=== PATIENT | female | born 1970 | race Caucasian/White ===

== ENCOUNTER 2020-04-27 09:59 | Outpatient (REF) | payer OTHER, SELFPAY | END 2020-04-27 10:00 | disposition home or self-care (01) | LOC: HO.LAB 09:59 | PROVIDERS: Visit Provider Internal Medicine | DX: Z20.828 Contact with and (suspected) exposure to other viral communicable diseases (principal) | CPT/HCPCS: C9803; U0003 ==

== ENCOUNTER 2021-12-06 10:23 | Outpatient (REF) | payer OTHER, SELFPAY ==
--- NOTE | ~2021-12-06 | XR_ITS ---
EXAMINATION: XR FOOT, RIGHT CLINICAL INFORMATION: Pain. COMPARISON: None TECHNIQUE: AP, lateral, and oblique views of the right foot. FINDINGS: Bony alignment and mineralization are normal. No fracture, dislocation or right ankle joint effusion is seen. Boehler's angle is normal. There are small posterior and plantar calcaneal spurs. No focal soft tissue swelling, gas or foreign body is seen. XR/XR foot RT min 3V IMPRESSION: 1. No fracture, dislocation or right ankle joint effusion is seen. 2. There are small posterior and plantar right calcaneal spurs. EXAMINATION: XR FOOT, LEFT CLINICAL INFORMATION: Pain. COMPARISON: None TECHNIQUE: AP, lateral, and oblique views of the left foot. FINDINGS: Bony alignment and mineralization are normal. No fracture, dislocation or left ankle joint effusion is seen. Boehler's angle is normal. There are moderate posterior and small plantar calcaneal spurs. There is very mild bunion formation of the first metatarsal head. No focal soft tissue swelling, gas or foreign body is seen. IMPRESSION: 1. No fracture, dislocation or left ankle joint effusion is seen. 2. There are moderate posterior and small plantar left calcaneal spurs. 3. There is very mild bunion formation.
--- NOTE | ~2021-12-06 | XR_ITS ---
EXAMINATION: XR FOOT, RIGHT CLINICAL INFORMATION: Pain. COMPARISON: None TECHNIQUE: AP, lateral, and oblique views of the right foot. FINDINGS: Bony alignment and mineralization are normal. No fracture, dislocation or right ankle joint effusion is seen. Boehler's angle is normal. There are small posterior and plantar calcaneal spurs. No focal soft tissue swelling, gas or foreign body is seen. XR/XR foot LT min 3V IMPRESSION: 1. No fracture, dislocation or right ankle joint effusion is seen. 2. There are small posterior and plantar right calcaneal spurs. EXAMINATION: XR FOOT, LEFT CLINICAL INFORMATION: Pain. COMPARISON: None TECHNIQUE: AP, lateral, and oblique views of the left foot. FINDINGS: Bony alignment and mineralization are normal. No fracture, dislocation or left ankle joint effusion is seen. Boehler's angle is normal. There are moderate posterior and small plantar calcaneal spurs. There is very mild bunion formation of the first metatarsal head. No focal soft tissue swelling, gas or foreign body is seen. IMPRESSION: 1. No fracture, dislocation or left ankle joint effusion is seen. 2. There are moderate posterior and small plantar left calcaneal spurs. 3. There is very mild bunion formation.
== END 2021-12-06 10:24 | disposition home or self-care (01) ==
LOC: HO.HMGCX 10:23
PROVIDERS: PCP Nurse Practitioner Family; Visit Provider Nurse Practitioner Family
DX: M79.672 Pain in left foot (principal); M79.671 Pain in right foot
CPT/HCPCS: 73630

== ENCOUNTER 2021-12-13 09:32 | Outpatient (REF) | payer OTHER, SELFPAY ==
[2021-12-13 11:38] LABS: MANUAL DIFF FLAG NO
[2021-12-13 11:59] LABS: Basophils Absolute Auto 0.1 X10*3/uL (0.0-0.2); Basophils Percent Auto 0.9 % (0-2); Eosinophils Absolute Auto 0.3 X10*3/uL (0.0-0.4); Eosinophils Percent Auto 6.5 % (0-4); Hematocrit 41.1 % (37.0-47.0); Hemoglobin 13.9 g/dl (12.0-16.0); Imm Gran Abs Auto 0.01 X10*3/uL (0.00-0.03); Imm Gran Pct Auto 0.2 % (0.0-0.4); Lymphocytes Percent Auto 37.2 % (20-40); Mean Corpuscular HGB Conc 33.8 g/dl (31.0-35.0); Mean Corpuscular Hemoglobin 32.7 pg (27.0-33.0); Mean Corpuscular Volume 96.7 fL (80.0-98.0); Mean Platelet Volume 10.8 fL (9.4-12.3); Monocytes Absolute Auto 0.4 X10*3/uL (0.1-1.2); Monocytes Percent Auto 8.3 % (2-11); Neutrophils Absolute Auto 2.5 x10*3/uL (2.0-8.3); Neutrophils Percent Auto 46.9 % (45-73); Platelet Count 273 X10*3/uL (160-400); Red Blood Count 4.25 X10*6/uL (4.20-5.50); Red Cell Distribution Width 12.2 % (11.0-16.0); White Blood Count 5.3 X10*3/uL (4.8-10.8)
[2021-12-13 12:05] LABS: INTERNATIONAL NORM RATIO 0.9 (0.9-1.1); Prothrombin Time 9.9 SEC (10.0-13.1)
[2021-12-13 12:08] LABS: Partial Thromboplastin Time 30.4 SEC (26.0-36.4)
[2021-12-13 12:10] LABS: Alanine Aminotransferase 17 U/L (0-31); Albumin Level 4.3 g/dL (3.5-5.0); Alkaline Phosphatase 57 U/L (39-117); Anion Gap 15 (12-20); Aspartate Amino Transferase 13 U/L (5-31); Bilirubin Total 0.8 mg/dL (0.0-1.0); Blood Urea Nitrogen 19 mg/dL (9-16); Calcium 9.7 mg/dL (8.4-10.2); Carbon Dioxide 27 mmol/L (22-29); Chloride 102 mmol/L (96-108); Cholesterol 184 mg/dL; Estimated Glomerular Filt Rate > 60; Glucose Fasting 115 mg/dL (60-99); HDL Cholesterol 74 mg/dL; LDL Cholesterol Calculated 88 mg/dl; Potassium 4.4 mmol/L (3.3-5.1); Sodium 140 mmol/L (135-145); Total Protein 7.2 g/dL (6.5-8.0); Triglycerides 111 mg/dL
[2021-12-13 12:14] LABS: Appearance Urine CLEAR; Color Urine YELLOW; Glucose Urine UA NEG (NEG); Leukocyte Esterase Urine NEG (NEG); Nitrite Urine NEG (NEG); Specific Gravity - Urine 1.025 (1.005-1.025); Urine Blood NEG (NEG); Urine Ketones NEG (NEG); Urine Protein NEG (NEG-TRACE)
[2021-12-13 12:19] LABS: TSH reflex Free T4 1.17 uIU/mL (0.32-4.0)
== END 2021-12-13 09:33 | disposition home or self-care (01) ==
LOC: HO.HMGCLDS 09:32
PROVIDERS: PCP Nurse Practitioner Family; Visit Provider Nurse Practitioner Family
DX: R04.0 Epistaxis (principal)
CPT/HCPCS: 36415; 80053; 80061; 81003; 84443; 85025; 85610; 85730

== ENCOUNTER 2022-11-02 10:25 | Outpatient (REF) | payer OTHER, SELFPAY ==
[2022-11-02 12:29] LABS: Alanine Aminotransferase 36 U/L (0-31); Albumin Level 4.3 g/dL (3.5-5.0); Alkaline Phosphatase 62 U/L (39-117); Anion Gap 14 (12-20); Aspartate Amino Transferase 25 U/L (5-31); Bilirubin Total 0.9 mg/dL (0.0-1.0); Blood Urea Nitrogen 18 mg/dL (9-16); Carbon Dioxide 25 mmol/L (22-29); Chloride 106 mmol/L (96-108); Cholesterol 213 mg/dL; Estimated Glomerular Filt Rate > 60; Glucose Fasting 116 mg/dL (60-99); HDL Cholesterol 71 mg/dL; LDL Cholesterol Calculated 104 mg/dl; Potassium 4.1 mmol/L (3.3-5.1); Sodium 141 mmol/L (135-145); TSH reflex Free T4 2.06 uIU/mL (0.32-4.0); Total Protein 7.5 g/dL (6.5-8.0); Triglycerides 191 mg/dL
== END 2022-11-02 10:26 | disposition home or self-care (01) ==
LOC: HO.HMGCLDS 10:25
PROVIDERS: PCP Nurse Practitioner Family; Visit Provider Nurse Practitioner Family
DX: Z00.00 Encounter for general adult medical examination without abnormal findings (principal); Z20.2 Contact with and (suspected) exposure to infections with a predominantly sexual mode of transmission; Z13.220 Encounter for screening for lipoid disorders; Z13.29 Encounter for screening for other suspected endocrine disorder
CPT/HCPCS: 36415; 80053; 80061; 81003; 84443; 85025

== ENCOUNTER 2022-11-11 09:57 | Outpatient (REF) | payer OTHER, SELFPAY ==
--- NOTE | ~2022-11-11 | US_ITS ---
EXAMINATION: US ABDOMEN COMPLETE CLINICAL INFORMATION: Abnormal levels of other serum enzymes. COMPARISON: CT abdomen and pelvis 06/03/2019. TECHNIQUE: Real-time imaging of the abdominal viscera. FINDINGS: PANCREAS: The pancreas is not well seen due to bowel gas. ABDOMINAL AORTA: The mid and distal segments are normal in caliber. The proximal abdominal aorta is obscured by bowel gas. INFERIOR VENA CAVA: Visualized portions are normal. LIVER: The liver is normal in size. The liver contour is normal. There is diffuse increased liver parenchymal echogenicity, consistent with hepatic steatosis. No focal hepatic lesion. There is no intrahepatic biliary duct dilatation seen. GALLBLADDER: Normal. The gallbladder is physiologically distended without evidence of stones, sludge, polyps, wall thickening or pericholecystic fluid. COMMON BILE DUCT: Normal in caliber measuring 0.27 cm in diameter. RIGHT KIDNEY: Normal. No hydronephrosis. No renal calculi or focal parenchymal lesions. The kidney measures 11.9 cm in maximum dimension. LEFT KIDNEY: 0.6 x 0.5 x 0.7 cm nonobstructing calculus is seen in the mid kidney. No hydronephrosis or focal parenchymal lesions. The kidney measures 11.4 cm in maximum dimension. SPLEEN: Normal. The spleen measures 8.5 cm in maximum dimension. FREE FLUID: None. US/US abdomen complete IMPRESSION: 1. Hepatic steatosis. 2. 0.7 cm nonobstructing calculus in the mid left kidney.
[2022-11-14 05:06] LABS: HBc Num1 0.06 S/CO (0.00-0.79); HBsAGNum1 0.23 S/CO (0.00-0.99); Hepatitis A Antibody IgM 0.27 Index (0-0.79); Hepatitis B Core Antibody Nonreactive (Nonreactive); Hepatitis B Surface Antigen Negative (Negative); ~Hepatitis A Antibody IgM Nonreactive (Nonreactive); ~Hepatitis C Antibody Nonreactive (Nonreactive)
[2022-11-14 05:50] LABS: ~Hepatitis B Surface Antibody NONREACTIVE (Nonreactive)
== END 2022-11-11 09:58 | disposition home or self-care (01) ==
LOC: HO.HMGCX 09:57
PROVIDERS: PCP Nurse Practitioner Family; Visit Provider Nurse Practitioner Family
DX: R74.8 Abnormal levels of other serum enzymes (principal)
CPT/HCPCS: 36415; 76700; 86704; 86706; 86709; 86803; 87340

== ENCOUNTER 2023-09-19 10:59 | Outpatient (AMB) | payer OTHER, SELFPAY ==
--- NOTE | 2023-09-19 11:05 | A.OFFPC_ITS ---
Vital Signs 09/19/23 11:08 Height 5 ft 4 in Weight 231 lb BMI 39.6 BP 112/78 Blood Pressure Location Rt brachial Position Sitting Pulse 60 Pulse Source Pulse Oximeter Pulse Oximetry (%) 97 Oxygen Delivery Method Room Air Intake Visit Reasons: PE Intake Note: Patient here for physical exam. pt would like to address left shoulder pain, states ROM are limited. Mammo: 2023 [facility] Allergies Iodinated Contrast Media [IV CONTRAST] Allergy (Intermediate, Unverified 09/19/23 11:10) HIVES azithromycin [From ZITHROMAX] Allergy (Unknown, Unverified 09/19/23 11:10) RASH latex [LATEX] Allergy (Unknown, Unverified 09/19/23 11:10) ITCHING levofloxacin [Levaquin] Allergy (Unknown, Verified 09/19/23 11:10) ? hives metronidazole Allergy (Unknown, Verified 09/19/23 11:10) ? hives penicillin G Allergy (Unknown, Verified 09/19/23 11:10) Anaphylaxis penicillin V Allergy (Unknown, Verified 09/19/23 11:10) Hives Penicillins [PENICILLINS] Allergy (Unknown, Unverified 09/19/23 11:10) RASH sulfamethoxazole [From BACTRIM] Allergy (Unknown, Unverified 09/19/23 11:10) RASH trimethoprim [From BACTRIM] Allergy (Unknown, Unverified 09/19/23 11:10) RASH IV Dye Allergy (Unknown, Uncoded 09/19/23 11:10) Hives Tobacco use date assessed: 09/19/23 Dental Screening Dental Screen Date: 09/19/23 Did you have a dental visit in the last 12 months?: Yes Did you have a dental problem in the last 6 months where you did not have access to dental care?: No Was dental information given to patient?: Patient has dentist HPI PE HPI Details Pt is here for a PE. Will order labs. Due for colon screen, will refer again to GI. Mammo is up to date according to pt. Pt does not have a shower room attendant, will refer. Pt c/o left shoulder pain. She reports that this is chronic. Will order XR and refer to ortho. [facility] Family History Maternal Aunt Substance use disorder Maternal Uncle Substance use disorder Paternal Uncle Substance use disorder Paternal Aunt Substance use disorder Social History Housing: House Patient Tobacco Use Status: Former Tobacco user Cigarettes Per Day: 2 e-Cigarette/Vaping Use: Currently Using Second Hand Smoke Exposure: No Current occupational status: disabled Cognitive needs: No Hearing needs: No Vision needs: No Questionnaire Thrive Questionnaire Date Thrive assessed: 09/14/22 AUDIT C Alcohol Use Questionnaire (AUDIT-C) 1. How often do you have a drink containing alcohol?: 2-3 times a week 2. How many drinks containing alcohol do you have on a typical day when you are drinking?: 3 or 4 3. How often do you have six or more drinks on one occasion?: Never Total Score: 4 Score Reviewed/Action Taken: No KINGS-7 AMB Questionnaire KINGS-7 Date KINGS - 7 assessed: 09/14/22 Source: Developed by Drs. Oswaldo Keith, Yeni Angeles, Issa Riley and colleagues, with an educational yris from [employer]. Review of Systems Const Denies chills and Denies fever(s) Eyes Denies blurry vision ENT Denies vertigo, Denies dizziness and Denies sore throat Card Denies chest pain at rest, Denies chest pain with activity, Denies diaphoresis, Denies dyspnea and Denies dyspnea on exertion Resp Denies cough, Denies dyspnea, Denies dyspnea on exertion and Denies wheezing GI Denies abdominal pain, Denies melena, Denies hematochezia, Denies constipation, Denies diarrhea and Denies loose stools Denies hematuria Musc Denies numbness and Denies tingling Skin/Breast Denies lesions Neuro Denies vertigo, Denies dizziness, Denies numbness and Denies tingling Psych Denies anxiety, Denies depression, Denies homicidal ideation, Denies suicidal ideation and Denies other (substance abuse) Aller/Immun Denies wheezing Physical exam (Primary Care) Vital Signs: Last Vital Signs Pulse 60 09/19/23 11:08 BP 112/78 09/19/23 11:08 Pulse Ox 97 09/19/23 11:08 Oxygen Delivery Method Room Air 09/19/23 11:08 BMI result Body Mass Index 39.6 Tobacco/Smoking Status: Tobacco use Status Tobacco use date assessed 09/19/23 09/19/23 11:13 Patient Tobacco Use Status Former Tobacco user 09/19/23 11:13 e-Cigarette/Vaping Use Currently Using 09/19/23 11:13 Thrive Assessment: Date of Thrive Assessment Date Thrive assessed 09/14/22 09/19/23 11:13 Const General: cooperative Nutritional Appearance: obese Orientation/consciousness: patient oriented x3 HENMT Head: Yes normal to inspection, Yes normocephalic and Yes atraumatic Ears: TM's normal bilaterally Eyes General: appearance normal, both eyes and all related structures Alignment and Position: alignment normal and position normal Neck Neck: Yes normal visual inspection and Yes no lymphadenopathy Thyroid: Thyroid normal Resp Effort & Inspection: normal respiratory effort Auscultation: clear to auscultation bilaterally Cardio Rate: regular rate Rhythm: regular rhythm Heart sounds: S1 normal heart sound present, S2 normal heart sound present and no murmurs GI Palpation (GI): Soft to palpation and nontender Auscultation: normal bowel sounds Skin Rashes: no rashes Neuro General: patient oriented x3, moves all extremities, no focal motor deficits and deep tendon reflexes 2+ bilaterally Romberg Test: Negative Extrem Other: neg wolff, neg neers, neg jobes. + pain to deltoid and radiating inferior with lateral raises. Psych Appearance: grossly normal Mental Status: mental status grossly normal Speech and movement: Normal speech and movement present Affect: normal affect Attitude: cooperative Thought process: Normal thought process present Thought content: Normal thought content present Insight: Good insight present (Psych) Judgement: Good judgement present (Psych) Assessment and Plan Assessment & Plan (1) Physical exam: Code(s): Z00.00 - Encounter for general adult medical examination without abnormal findings Plan: Labs ordered (2) Screening for colon cancer: Code(s): Z12.11 - Encounter for screening for malignant neoplasm of colon Plan: Referred to GI (3) Screening for cervical cancer: Code(s): Z12.4 - Encounter for screening for malignant neoplasm of cervix Plan: Referred to shower room attendant (4) Left shoulder pain: Code(s): M25.512 - Pain in left shoulder Plan: XR ordered, referred to ortho Plan The patient agreed to the use of a director medical economics for this encounter. Scribed for KYLEE Pandya-BC by Jenna Silvestre, director medical economics, on 09/19/2023 at 11:35 EST. Orders: Orders Complete Blood Count Auto Diff Today Z00.00 - Encounter for general adult medical examination without abnormal findings Comprehensive [place]. Panel Fast Today Z00.00 - Encounter for general adult medical examination without abnormal findings TSH reflex Free T4 Today Z00.00 - Encounter for general adult medical examination without abnormal findings Lipid Panel Today Z00.00 - Encounter for general adult medical examination without abnormal findings XR shoulder LT min 2V Today M25.512 - Pain in left shoulder UA CC w/rflx Micro + Cult Today Z00.00 - Encounter for general adult medical examination without abnormal findings Referrals Orthopedics Referral M25.512 - Pain in left shoulder Gastroenterology Referral Z12.11 - Encounter for screening for malignant neoplasm of colon UTILIZATION MANAGEMENT RN Referral Z12.4 - Encounter for screening for malignant neoplasm of cervix Coding Level of Care Code Est Pt Prev Care 40-64y(38724) Diagnoses Physical exam Z00.00 Screening for colon cancer Z12.11 Screening for cervical cancer Z12.4 Left shoulder pain M25.512
[2023-09-19 11:08] VITALS: BP 112/78; PULSE 60; O2SAT 97; BMI 39.6
== END 2023-09-19 11:46 | disposition home or self-care (01) ==
PROVIDERS: Visit Provider Nurse Practitioner Family
DX: Z00.00 Encounter for general adult medical examination without abnormal findings (principal); Z12.11 Encounter for screening for malignant neoplasm of colon; Z12.4 Encounter for screening for malignant neoplasm of cervix; M25.512 Pain in left shoulder
CPT/HCPCS: 99396

== ENCOUNTER 2023-09-27 12:24 | Outpatient (AMB) | payer OTHER, SELFPAY ==
[2023-09-27 12:22] VITALS: BP 124/80; PULSE 59; O2SAT 97; BMI 40.5
--- NOTE | 2023-09-27 12:22 | AM.OFFWIN_ITS ---
Intake Vital Signs 3 09/27/23 12:22 Height 5 ft 4 in Weight 236 lb BMI 40.5 BP 124/80 Blood Pressure Location Rt brachial Position Sitting Pulse 59 Pulse Source Pulse Oximeter Pulse Oximetry (%) 97 Oxygen Delivery Method Room Air Intake Visit Reasons: Knee Pain Patient Tobacco Use Status: Former Tobacco user Allergies Iodinated Contrast Media [IV CONTRAST] Allergy (Intermediate, Unverified 09/27/23 12:13) HIVES azithromycin [From ZITHROMAX] Allergy (Unknown, Unverified 09/27/23 12:13) RASH latex [LATEX] Allergy (Unknown, Unverified 09/27/23 12:13) ITCHING levofloxacin [Levaquin] Allergy (Unknown, Verified 09/27/23 12:13) ? hives metronidazole Allergy (Unknown, Verified 09/27/23 12:13) ? hives penicillin G Allergy (Unknown, Verified 09/27/23 12:13) Anaphylaxis penicillin V Allergy (Unknown, Verified 09/27/23 12:13) Hives Penicillins [PENICILLINS] Allergy (Unknown, Unverified 09/27/23 12:13) RASH sulfamethoxazole [From BACTRIM] Allergy (Unknown, Unverified 09/27/23 12:13) RASH trimethoprim [From BACTRIM] Allergy (Unknown, Unverified 09/27/23 12:13) RASH IV Dye Allergy (Unknown, Uncoded 09/27/23 12:13) Hives Medication List - Last Reconciled 09/27/23 by Hortensia Villatoro MD atorvastatin 10 mg PO DAILY 90 days citalopram 20 mg PO DAILY clonazepam 0.5 mg PO DAILY PRN 30 days aponnjqfvqcg-Aa-ycly-minerals tabs PO pregabalin 100 mg PO BID 30 days trazodone 50 mg PO BEDTIME PRN 90 days Do you need a note to return to daycare/school/sports/work: No HPI Knee Pain 2 HPI0 Details Patient is a 53 year old female, who has encountered injury to her left knee this past weekend While playing with her partner outdoors Patient has swelling of her left knee now and having difficulty walking due to pain She is able to ambulate with the help of cane On examination patient is tender laterally below patella There is no pain in the back of the knee, there is no calf tenderness Range of motion is slightly limited because pain. Left knee is slightly swollen compared to right She is taking Tylenol or aleave with some relief Plan: I have ordered x-ray of her knee, we have also applied knee splint She is to stop taking a leave, I prescribing diclofenac 75 mg b.i.d. to be taken with food Further management after the x-ray report and re-evaluation in a week. [facility] Family History Maternal Aunt Substance use disorder Maternal Uncle Substance use disorder Paternal Uncle Substance use disorder Paternal Aunt Substance use disorder Social History Housing: House Patient Tobacco Use Status: Former Tobacco user Cigarettes Per Day: 2 e-Cigarette/Vaping Use: Currently Using Second Hand Smoke Exposure: No Current occupational status: disabled Cognitive needs: No Hearing needs: No Vision needs: No Review of Systems Const All systems reviewed & are unremarkable except as noted in HPI and below Physical Exam Vital Signs: Last Vital Signs Pulse 59 09/27/23 12:22 BP 124/80 09/27/23 12:22 Pulse Ox 97 09/27/23 12:22 Oxygen Delivery Method Room Air 09/27/23 12:22 BMI result Body Mass Index 40.5 Const General: no acute distress Orientation/consciousness: patient oriented x3 Eyes General: appearance normal, both eyes and all related structures Resp Effort & Inspection: normal respiratory effort and able to speak in complete sentences Neuro General: patient oriented x3 Extrem Elbow/forearm/wrist images: 2 1. Tender to pressure, left knee slightly swollen compared to right knee, range of motion slightly limited because of the pain, no pain posterior to knee no calf tenderness Psych Mental Status: mental status grossly normal Assessment & Plan Assessment & Plan (1) Knee pain, left: Code(s): M25.562 - Pain in left knee Qualifiers: Chronicity: acute Qualified Code(s): M25.562 - Pain in left knee (2) Swelling of knee joint, left: Code(s): M25.462 - Effusion, left knee (3) Left knee injury: Code(s): S89.92XA - Unspecified injury of left lower leg, initial encounter Qualifiers: Encounter type: initial encounter Qualified Code(s): S89.92XA - Unspecified injury of left lower leg, initial encounter Plan Patient is a 53 year old female, who has encountered injury to her left knee this past weekend While playing with her partner outdoors Patient has swelling of her left knee now and having difficulty walking due to pain She is able to ambulate with the help of cane On examination patient is tender laterally below patella There is no pain in the back of the knee, there is no calf tenderness Range of motion is slightly limited because pain. Left knee is slightly swollen compared to right She is taking Tylenol or aleave with some relief Plan: I have ordered x-ray of her knee, we have also applied knee splint She is to stop taking a leave, I prescribing diclofenac 75 mg b.i.d. to be taken with food Further management after the x-ray report and re-evaluation in a week. Orders: Orders 2 XR knee LT 2V Today M25.462 - Effusion, left knee, M25.562 - Pain in left knee, S89.92XA - Unspecified injury of left lower leg, initial encounter Medications: New 2 diclofenac sodium Take medication with food 75 mg PO BID 10 days 20 tabs 0RF pain Coding Level of Care Code Est Pt Level 3 (99927) Diagnoses Acute pain of left knee M25.562 Chronicity: acute Swelling of knee joint, left M25.462 Injury of left knee, initial encounter S89.92XA Encounter type: initial encounter
== END 2023-09-27 12:44 | disposition home or self-care (01) ==
PROVIDERS: PCP Nurse Practitioner Family; Visit Provider Internal Medicine
DX: M25.562 Pain in left knee (principal); M25.462 Effusion, left knee; S89.92XA Unspecified injury of left lower leg, initial encounter
CPT/HCPCS: 99213

== ENCOUNTER 2023-09-27 13:00 | Outpatient (REF) | payer OTHER, SELFPAY ==
--- NOTE | ~2023-09-27 | XR_ITS ---
EXAMINATION: XR KNEE, LEFT CLINICAL INFORMATION: Pain in left knee status post injury COMPARISON: None available. TECHNIQUE: Four views of the left knee. FINDINGS: No fracture or joint effusion. Alignment is anatomic. Joint spaces are maintained. No abnormal soft tissue calcification. XR/XR knee LT 4V IMPRESSION: Normal left knee.
== END 2023-09-27 13:01 | disposition home or self-care (01) ==
LOC: HO.HMGCX 13:00
PROVIDERS: PCP Nurse Practitioner Family; Visit Provider Internal Medicine
DX: M25.562 Pain in left knee (principal)
CPT/HCPCS: 73564

== ENCOUNTER 2023-10-03 13:11 | Outpatient (AMB) | payer OTHER, SELFPAY ==
--- NOTE | 2023-10-03 13:14 | MHC.PC.OV ---
Vital Signs 10/03/23 13:16 Height 5 ft 4 in Weight 236 lb BMI 40.5 BP 118/70 Blood Pressure Location Rt brachial Position Sitting Pulse 111 H Pulse Source Pulse Oximeter Pulse Oximetry (%) 98 Oxygen Delivery Method Room Air Intake Visit Reasons: F/U knee pain [place] 09/27/23 Intake Note: Patient here to f/u from [place] visit for left knee pain. Allergies Iodinated Contrast Media [IV CONTRAST] Allergy (Intermediate, Unverified 10/03/23 13:17) HIVES azithromycin [From ZITHROMAX] Allergy (Unknown, Unverified 10/03/23 13:17) RASH latex [LATEX] Allergy (Unknown, Unverified 10/03/23 13:17) ITCHING levofloxacin [Levaquin] Allergy (Unknown, Verified 10/03/23 13:17) ? hives metronidazole Allergy (Unknown, Verified 10/03/23 13:17) ? hives penicillin G Allergy (Unknown, Verified 10/03/23 13:17) Anaphylaxis penicillin V Allergy (Unknown, Verified 10/03/23 13:17) Hives Penicillins [PENICILLINS] Allergy (Unknown, Unverified 10/03/23 13:17) RASH sulfamethoxazole [From BACTRIM] Allergy (Unknown, Unverified 10/03/23 13:17) RASH trimethoprim [From BACTRIM] Allergy (Unknown, Unverified 10/03/23 13:17) RASH IV Dye Allergy (Unknown, Uncoded 10/03/23 13:17) Hives Medication List - Last Reconciled 10/03/23 by KYLEE Russo-BC atorvastatin 10 mg PO DAILY 90 days citalopram 20 mg PO DAILY clonazepam 0.5 mg PO DAILY PRN 30 days mefrcdbkbozn-Hi-losm-minerals tabs PO pregabalin 100 mg PO BID 30 days trazodone 50 mg PO BEDTIME PRN 90 days Tobacco use date assessed: 09/19/23 Dental Screening Dental Screen Date: 09/19/23 HPI F/U knee pain [place] 09/27/23 HPI Details Pt was seen in the walk-in on 09/26 c/o left knee pain. Pt was at a [employer] when she injured her left knee by twisting it (pt has video). XR was negative. Pt was given a knee brace and diclofenac (she is no longer taking this, increased IBS). Pt reports ongoing pain. She reports instability especially when she is not wearing her brace. She reports that tylenol and advil help the pain minimally. Will order MRI and refer to PT. Will also send meloxicam 7.5mg. Denies fever, chills, and dizziness. [facility] Family History Maternal Aunt Substance use disorder Maternal Uncle Substance use disorder Paternal Uncle Substance use disorder Paternal Aunt Substance use disorder Social History Housing: House Patient Tobacco Use Status: Former Tobacco user Cigarettes Per Day: 2 e-Cigarette/Vaping Use: Currently Using Second Hand Smoke Exposure: No Current occupational status: disabled Cognitive needs: No Hearing needs: No Vision needs: No Questionnaire PHQ-9 Over the last 2 weeks, how often have you been bothered by any of the following problems? 09456 - PHQ-9 Billing: Patient declined-do not bill Source: Developed by Drs. Oswaldo Keith, Yeni Angeles, Issa Riley and colleagues, with an educational yris from [employer]. Thrive Questionnaire Date Thrive assessed: 10/03/23 What is your living situation today?: I choose not to answer this question Within the past 12 months, did the food you bought not last and you didn't have the money to get more?: I choose not to answer this question Within the past 12 months, did you worry whether your food would run out before you got money to buy more?: I choose not to answer this question Do you have trouble paying for medicines?: I choose not to answer this question Do you have trouble getting transportation to medical appointments?: I choose not to answer this question Do you have trouble paying your heating and electricity bill?: I choose not to answer this question Do you have trouble taking care of your child, family member or friend?: I choose not to answer this question Do you have trouble with day-to-day activities such as bathing, preparing meals, shopping, managing finances, etc.?: I choose not to answer this question Are you currently unemployed and looking for a job?: I choose not to answer this question Are you interested in more education?: I choose not to answer this question Currently or been in a relationship where the following occur: I choose not to answer this question THRIVE Score: 0 KINGS-7 AMB Questionnaire KINGS-7 Date KINGS - 7 assessed: 10/03/23 Source: Developed by Drs. Oswaldo Keith, Yeni Angeles, Issa Riley and colleagues, with an educational yris from [employer]. KINGS-7 Assessment Billing KINGS-7 Assessment Tool: pt declined-do not bill Review of Systems Const Reports as per HPI Physical exam (Primary Care) Vital Signs: Last Vital Signs Pulse 111 H 10/03/23 13:16 BP 118/70 10/03/23 13:16 Pulse Ox 98 10/03/23 13:16 Oxygen Delivery Method Room Air 10/03/23 13:16 BMI result Body Mass Index 40.5 Tobacco/Smoking Status: Tobacco use Status Tobacco use date assessed 09/19/23 10/03/23 13:16 Patient Tobacco Use Status Former Tobacco user 10/03/23 13:16 e-Cigarette/Vaping Use Currently Using 10/03/23 13:16 Thrive Assessment: Date of Thrive Assessment Date Thrive assessed 10/03/23 10/03/23 13:21 Currently or been in a relationship where the following occur: I choose not to answer this question Const General: cooperative Nutritional Appearance: obese Orientation/consciousness: patient oriented x3 Resp Effort & Inspection: normal respiratory effort Auscultation: clear to auscultation bilaterally Cardio Rate: regular rate Rhythm: regular rhythm Heart sounds: S1 normal heart sound present and S2 normal heart sound present Neuro General: patient oriented x3 Extrem Other: left knee: + mcmurrays, slight swelling to medial aspect, tenderness with extension and flexion, wearing brace and using cane Psych Appearance: grossly normal Mental Status: mental status grossly normal Speech and movement: Normal speech and movement present Affect: normal affect Attitude: cooperative Thought process: Normal thought process present Thought content: Normal thought content present Insight: Good insight present (Psych) Judgement: Good judgement present (Psych) Assessment and Plan Assessment & Plan (1) Left knee injury: Code(s): S89.92XA - Unspecified injury of left lower leg, initial encounter Qualifiers: Encounter type: initial encounter Qualified Code(s): S89.92XA - Unspecified injury of left lower leg, initial encounter Plan: MRI ordered, referred to PT, meloxicam sent. Video of injury seen, MRI definitely needed Plan The patient agreed to the use of a medical billing coder for this encounter. Scribed for BRIDGET Pandya by Jenna Silvestre medical billing coder, on 10/03/2023 at 13:35 EST. Orders: Orders MR knee LT wo con Today S89.92XA - Unspecified injury of left lower leg, initial encounter PT Evaluation and Treatment Today S89.92XA - Unspecified injury of left lower leg, initial encounter Medications: New meloxicam 7.5 mg PO DAILY 30 days PRN 30 tabs 0RF pain Coding Level of Care Code Est Pt Level 3 (70253) Diagnoses Injury of left knee, initial encounter S89.92XA Encounter type: initial encounter
[2023-10-03 13:16] VITALS: BP 118/70; PULSE 111; O2SAT 98; BMI 40.5
== END 2023-10-03 14:12 | disposition home or self-care (01) ==
PROVIDERS: PCP Nurse Practitioner Family; Visit Provider Nurse Practitioner Family
DX: S89.92XA Unspecified injury of left lower leg, initial encounter (principal)
CPT/HCPCS: 99213

== ENCOUNTER 2023-10-03 13:48 | Outpatient (REF) | payer OTHER, SELFPAY ==
--- NOTE | ~2023-10-03 | XR_ITS ---
EXAMINATION: XR SHOULDER, LEFT CLINICAL INFORMATION: Pain in left shoulder COMPARISON: None available. TECHNIQUE: AP external rotation, Grashey, scapular Y, and axillary views of the left shoulder. FINDINGS: The bones are intact. No fracture. Glenohumeral and acromioclavicular alignment is anatomic with moderate narrowing of the glenohumeral joint space mild degenerative change acromioclavicular joint. Small calcifications are seen adjacent to the humeral head. XR/XR shoulder LT min 2V IMPRESSION: 1. Moderate osteoarthritis of the glenohumeral joint. 2. Calcific tendinitis. 3. Mild degenerative change of the acromioclavicular joint.
== END 2023-10-03 13:49 | disposition home or self-care (01) ==
LOC: HO.HMGCX 13:48
PROVIDERS: PCP Nurse Practitioner Family; Visit Provider Nurse Practitioner Family
DX: M25.512 Pain in left shoulder (principal)
CPT/HCPCS: 73030

== ENCOUNTER 2023-10-16 08:57 | Outpatient (AMB) | payer OTHER, SELFPAY ==
--- NOTE | 2023-10-16 08:59 | A.OFFVIS_ITS ---
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 Intake Note: Mandie is a 53 year old right hand dominant female who presents today with complaints of left shoulder pain. Denies recent injury. Patient reports she has been having on going pain and weakness for the past 3 years but for the past year it has been at its worse. She expresses she has difficulty lifting her arm above her head some days, some days she is unable to lift at all. ROM lifted. She denies previous treatment on her left shoulder. She is unable to take ibuprofen but has tried Tylenol with mild relief. Allergies Iodinated Contrast Media [IV CONTRAST] Allergy (Intermediate, Verified 10/16/23 09:08) HIVES azithromycin [From ZITHROMAX] Allergy (Unknown, Verified 10/16/23 09:08) RASH latex [LATEX] Allergy (Unknown, Verified 10/16/23 09:08) ITCHING levofloxacin [Levaquin] Allergy (Unknown, Verified 10/16/23 09:08) ? hives metronidazole Allergy (Unknown, Verified 10/16/23 09:08) ? 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 : Details: Mandie is a 53 year old right hand dominant female who presents today with complaints of left shoulder pain. Denies recent injury. Patient reports she has been having on going pain and weakness for the past 3 years but for the past year it has been at its worse. She expresses she has difficulty lifting her arm above her head some days, some days she is unable to lift at all. ROM lifted. She denies previous treatment on her left shoulder. She is unable to take ibuprofen but has tried Tylenol with mild relief. She describes dislocations in the past , several, but the most recent one was several years ago. 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 [facility] Family History Maternal Aunt Substance use disorder Maternal Uncle Substance use disorder Paternal Uncle Substance use disorder Paternal Aunt Substance use disorder Social History Housing: House Patient Tobacco Use Status: Former Tobacco user Cigarettes Per Day: 2 e-Cigarette/Vaping Use: Currently Using Second Hand Smoke Exposure: No Current occupational status: disabled Cognitive needs: No Hearing needs: No Vision needs: No Physical Exam Vital Signs: BMI result Body Mass Index 40.5 Extrem Other: left hsoulder with 25 deg ER vs 60 on the right 4+/5 EC and + H/N on left Office Procedures Joint Injection/Drain Joint Injection/Drain Details: Injected 1 mL of Decadron and 3 mL 1% lidocaine and 3 mL of 0.25% Marcaine. Site was prepped using aseptic technique. Patient tolerated the procedure well. Primary Site: left shoulder Approach Used: posterolateral Coding 92535 - Large joint Procedure code (CPT) selection complete Assessment & Plan Assessment & Plan (1) Osteoarthritis of glenohumeral joint: Code(s): M19.019 - Primary osteoarthritis, unspecified shoulder Category: Medical Plan: I injected her left shoulder today and have ordered Physical Therapy. She should follow up s/p physical therapy. I reviewed her radiographs and she has post traumatic ( h/o multiple dislocations) GH OA. Plan Coding Level of Care Code New Pt Level 4 (87363) Diagnoses Osteoarthritis of glenohumeral joint M19.019 CPT Codes Coding - 83536 Large joint: 25401 - Large joint ([id number])
[2023-10-16 09:01] VITALS: BMI 40.5
== END 2023-10-16 10:42 | disposition home or self-care (01) ==
PROVIDERS: PCP Nurse Practitioner Family; Visit Provider Orthopaedic Surgery
DX: M19.012 Primary osteoarthritis, left shoulder (principal)
CPT/HCPCS: 20610; 99204

== ENCOUNTER → 2023-10-16 08:57 | Outpatient (BNVA) | payer OTHER, SELFPAY | PROVIDERS: PCP Nurse Practitioner Family; Visit Provider Orthopaedic Surgery | DX: M19.019 Primary osteoarthritis, unspecified shoulder (principal) | CPT/HCPCS: 20610; 99202; J0665; J1100 ==

== ENCOUNTER 2023-11-10 07:48 | Outpatient (REF) | payer OTHER, SELFPAY ==
[2023-11-10 08:04] LABS: MANUAL DIFF FLAG NO
[2023-11-10 09:05] LABS: Basophils Absolute Auto 0.1 X10*3/uL (0.0-0.2); Basophils Percent Auto 0.8 % (0-2); Eosinophils Absolute Auto 0.2 X10*3/uL (0.0-0.4); Eosinophils Percent Auto 3.4 % (0-4); Hemoglobin 13.3 g/dl (12.0-16.0); Imm Gran Abs Auto 0.02 X10*3/uL (0.00-0.03); Imm Gran Pct Auto 0.3 % (0.0-0.4); Lymphocytes Percent Auto 30.9 % (20-40); Mean Corpuscular HGB Conc 34.1 g/dl (31.0-35.0); Mean Corpuscular Hemoglobin 32.3 pg (27.0-33.0); Mean Corpuscular Volume 94.7 fL (80.0-98.0); Mean Platelet Volume 11.3 fL (9.4-12.3); Monocytes Absolute Auto 0.5 X10*3/uL (0.1-1.2); Neutrophils Absolute Auto 3.6 x10*3/uL (2.0-8.3); Neutrophils Percent Auto 56.6 % (45-73); Platelet Count 288 X10*3/uL (160-400); Red Blood Count 4.12 X10*6/uL (4.20-5.50); Red Cell Distribution Width 12.5 % (11.0-16.0); White Blood Count 6.4 X10*3/uL (4.8-10.8)
[2023-11-10 09:22] LABS: Appearance Urine Clear; Color Urine Yellow; Glucose Urine UA Negative (Negative); Leukocyte Esterase Urine Negative (Negative); Nitrite Urine Negative (Negative); PH 5.5 (5.0-9.0); Specific Gravity - Urine 1.025 (1.005-1.025); Urine Blood Negative (Negative); Urine Ketones Negative (Negative); Urine Protein Negative (Neg-Trace)
[2023-11-10 09:40] LABS: Alanine Aminotransferase 15 U/L (0-31); Albumin Level 4.3 g/dL (3.5-5.0); Alkaline Phosphatase 69 U/L (39-117); Anion Gap 14 (12-20); Aspartate Amino Transferase 15 U/L (5-31); Blood Urea Nitrogen 16 mg/dL (9-16); Calcium 9.3 mg/dL (8.4-10.2); Carbon Dioxide 23 mmol/L (22-29); Chloride 106 mmol/L (96-108); Cholesterol 188 mg/dL (<200); Estimated Glomerular Filt Rate > 60; Glucose Fasting 128 mg/dL (60-99); HDL Cholesterol 63 mg/dL (>40); LDL Cholesterol Calculated 98 mg/dL (<100); Potassium 3.7 mmol/L (3.3-5.1); Sodium 139 mmol/L (135-145); Total Protein 7.2 g/dL (6.5-8.0); Triglycerides 135 mg/dL (<150)
[2023-11-10 09:46] LABS: TSH reflex Free T4 2.59 uIU/mL (0.32-4.0)
== END 2023-11-10 07:49 | disposition home or self-care (01) ==
LOC: HO.LAB 07:48
PROVIDERS: PCP Nurse Practitioner Family; Visit Provider Nurse Practitioner Family
DX: Z00.00 Encounter for general adult medical examination without abnormal findings (principal); Z13.6 Encounter for screening for cardiovascular disorders
CPT/HCPCS: 36415; 80053; 80061; 81003; 84443; 85025

== ENCOUNTER 2023-12-19 11:00 | Outpatient (RCR) | payer OTHER, SELFPAY | END 2024-05-24 09:28 | disposition home or self-care (01) | LOC: HO.PTWFD 11:00 | PROVIDERS: PCP Nurse Practitioner Family; Visit Provider Nurse Practitioner Family | DX: S89.92XD Unspecified injury of left lower leg, subsequent encounter (principal) | CPT/HCPCS: 97110; 97140; 97161; 97530; 97535 ==

== ENCOUNTER 2023-12-20 07:33 | Outpatient (REF) | payer OTHER, SELFPAY ==
--- NOTE | ~2023-12-20 | MR_ITS ---
EXAMINATION: MR KNEE WITHOUT CONTRAST, LEFT CLINICAL INFORMATION: Unspecified injury of left lower leg, initial encounter. COMPARISON: None available. TECHNIQUE: MRI of the left knee without contrast was performed using routine sequences on a high-field scanner. FINDINGS: MENISCI: Medial Meniscus: There is irregular abnormal signal along the periphery of the body of the meniscus extending peripheral medial margin and the femoral articular surface. Additional heterogeneous abnormal signal throughout the posterior 3rd portion of the posterior horn. Findings indicative of complex tearing of the posterior horn and body. Lateral Meniscus: Intact. LIGAMENTS: Cruciate: ACL: Complete tear of the anterior cruciate ligament likely subacute or old. There are torn fibers displaced anteriorly into the anterior recess. PCL intact. Collateral: Intact. EXTENSOR MECHANISM: Intact. ARTICULAR CARTILAGE/BONE: Patellofemoral Compartment: Mild cartilage heterogeneity of the medial facet of the patella. Minimal cartilage heterogeneity of the medial trochlea. Overall minimal patellofemoral arthrosis. Medial Compartment: Mild cartilage heterogeneity of the weightbearing femoral articular cartilage. Overall minimal arthrosis. Lateral Compartment: Normal. JOINT FLUID AND BURSAE: There is a small joint effusion and Mitchell's cyst. Minimal synovitis. MR/MR knee LT wo con IMPRESSION: 1. Complex tear of the posterior horn and body of the medial meniscus. 2. Complete tear of the anterior cruciate ligament likely subacute or old. 3. Minimal arthrosis of the patellofemoral and medial compartments. 4. Joint effusion and Mitchell's cyst. Electronically signed by: Bryson Arias MD 01/25/2024 02:14 PM EDT
== END 2023-12-20 07:34 | disposition home or self-care (01) ==
LOC: HO.MRI 07:33
PROVIDERS: PCP Nurse Practitioner Family; Visit Provider Nurse Practitioner Family
DX: S89.92XA Unspecified injury of left lower leg, initial encounter (principal)
CPT/HCPCS: 73721

== ENCOUNTER 2023-12-21 13:07 | Emergency (ER) | payer OTHER, SELFPAY ==
[2023-12-21] VITALS (7 sets, daily range): BP systolic 141–162; BP diastolic 73–86; PULSE 55–60; RESP 16–18; TEMP 36.7–37.1; O2SAT 96–97; BMI 38.8
--- NOTE | ~2023-12-21 | XR_ITS ---
EXAMINATION: CHEST 2 VIEWS CLINICAL INFORMATION: Palpitations, bradycardia. COMPARISON: None. TECHNIQUE: 2 views of the chest. FINDINGS: Devices: None. Mediastinum: Cardiomediastinal silhouette within normal limits. Pulmonary vascularity is normal. Lungs: Normal expansion. No focal consolidation. Pleura: No pleural effusion or pneumothorax. Bones: No acute or suspicious osseus abnormalities. Upper Abdomen: Unremarkable. XR/XR chest 2V IMPRESSION: No acute cardiopulmonary findings. Electronically signed by: Noe Romero MD 12/21/2023 02:51 PM EDT RP
--- NOTE | 2023-12-21 13:15 | ED.GENADULT ---
HPI - General Adult General Chief complaint: Dizziness Stated complaint: high bp Time Seen by Provider: 12/21/23 17:03 Source: patient and family (Daughter) Mode of arrival: ambulatory Limitations: no limitations History of Present Illness ED Provider: DR. Yost HPI narrative: 53-year-old female walked in for evaluation of left-sided chest palpitation and feeling dizzy, patient at her physical therapy session had her blood pressure and heart rate checked found to be hypertensive and bradycardic of heart rate in the 50s patient was instructed by her PCP to come to the ED for further evaluation. Symptoms started a week ago and feeling of palpitation left-sided chest pain that is localized to the left side of the chest with no radiation. No recent travel, no lower extremity swelling or tenderness, no SOB, no severe headache, no photophobia, no nausea, no vomiting. Patient usually with low blood pressure, not taking any medication for hypertension. Related Data Home Medications ?Medication ?Instructions ?Recorded ?Confirmed uztjkiscbxhh-Ou-psxh-minerals 18 tab PO 09/14/22 10/03/23 mg-0.4 mg tablet Previous Rx's ?Medication ?Instructions ?Recorded atorvastatin 10 mg tablet 10 mg PO DAILY 90 days #90 tabs 02/18/23 citalopram 20 mg tablet 20 mg PO DAILY #90 tabs 10/13/23 trazodone 50 mg tablet 50 mg PO BEDTIME PRN sleep 90 days 10/13/23 #90 tabs clonazepam 0.5 mg tablet 0.5 mg PO DAILY PRN anxiety 30 11/22/23 days #30 tabs pregabalin 100 mg capsule 100 mg PO BID 30 days #60 caps 11/22/23 blood sugar diagnostic (JoyentTouch #100 ea 12/06/23 Verio test strips) blood-glucose meter (JoyentTouch #1 ea 12/06/23 Verio Reflect Meter) lancets 33 gauge (OneTouch Delica #100 ea 12/06/23 Plus Lancet) Allergies Allergy/AdvReac Type Severity Reaction Status Date / Time Iodinated Contrast Media Allergy Intermediate HIVES Verified 12/21/23 13:18 [IV CONTRAST] azithromycin [From ZITHROMAX] Allergy Unknown RASH Verified 12/21/23 13:18 latex [LATEX] Allergy Unknown ITCHING Verified 12/21/23 13:18 levofloxacin [Levaquin] Allergy Unknown ? hives Verified 12/21/23 13:18 metronidazole Allergy Unknown ? hives Verified 12/21/23 13:18 penicillin G Allergy Unknown Anaphylaxis Verified 12/21/23 13:18 penicillin V Allergy Unknown Hives Verified 12/21/23 13:18 Penicillins [PENICILLINS] Allergy Unknown RASH Verified 12/21/23 13:18 sulfamethoxazole Allergy Unknown RASH Verified 12/21/23 13:18 [From BACTRIM] trimethoprim [From BACTRIM] Allergy Unknown RASH Verified 12/21/23 13:18 IV Dye Allergy Unknown Hives Uncoded 12/21/23 13:18 Review of Systems Review of Systems: All other systems are reviewed and are negative Constitutional: Reports as per HPI and Reports no additional constitutional complaints Eyes: Reports as per HPI and Reports no additional eye complaints Reports system reviewed and no additional complaints, except as documented Cardiovascular: Reports as per HPI and Reports no additional cardiovascular complaints Respiratory: Reports as per HPI and Reports no additional respiratory complaints Gastrointestinal: Reports as per HPI and Reports no additional gastrointestinal complaints Genitourinary: Reports no additional female genitourinary complaints Musculoskeletal: Reports no additional musculoskeletal complaints Skin/Breast: Reports system reviewed and no additional complaints, except as docu Psychiatric: Reports no additional psychiatric complaints Endocrine: Reports no additional endocrine complaints Hematologic/Lymphatic: Reports no additional hematologic/lymphatic complaints Allergic/Immunologic: Reports no additional allergic/immunologic complaints Reports system reviewed and no additional complaints, except as documented and Reports Abnormal speech present [facility] Past Medical History Medical History High cholesterol Depression Fibromyalgia Surgical History S/P tympanotomy with insertion of tube H/O removal of cyst History of back surgery Hx of appendectomy Family History Family History Maternal Aunt Substance use disorder Maternal Uncle Substance use disorder Paternal Uncle Substance use disorder Paternal Aunt Substance use disorder Social History Social History Housing: House Patient Tobacco Use Status: Former Tobacco user Cigarettes Per Day: 2 Smoked in Last 30 Days: Yes e-Cigarette/Vaping Use: Currently Using Second Hand Smoke Exposure: No Use of substances other than those prescribed or required for medical reasons: Yes Substance Use Type: Marijuana Advance Directives: Yes Advance Directives Information Provided: No Advance Directives on File: No Do you have a plan to hurt others: No Plan Patient : No Current occupational status: disabled Cognitive needs: No Hearing needs: No Vision needs: No Physical Exam ED Vital Signs: Vital Signs - 24 hr 12/21/23 13:16 12/21/23 17:03 12/21/23 17:20 Temperature 98.1 F 98.7 F Pulse Rate 60 57 55 Respiratory Rate 18 16 Blood Pressure 141/78 H 151/73 H Pulse Oximetry 96 97 Oxygen Delivery Method Room Air Room Air 12/21/23 17:22 12/21/23 17:24 Temperature Pulse Rate 58 60 Respiratory Rate Blood Pressure 156/86 H 162/83 H Pulse Oximetry Oxygen Delivery Method BMI result Body Mass Index 38.8 Vital signs have been reviewed and appear to be correct. Blood pressure elevated. Heart rate normal. Respiratory rate normal. Temperature normal. Oxygen saturation normal. Appearance: Alert. Oriented X3. No acute distress. Head: Normal external exam. Normocephalic. Atraumatic. No Maki signs noted. No raccoon eyes noted Eyes: PERRLA. EOMI. Conjunctiva and sclera normal. Eyelids normal. ENT: TM's Normal. Pharynx normal. Uvula midline. Moist mucous membranes. No trismus noted. No drooling noted. No muffled voice noted. Neck: Normal inspection. Neck supple. FROM. No adenopathy. Thyroid Normal. No meningeal signs. No neck mass noted. CVS: Normal heart rate and rhythm. Heart sound normal. No murmurs noted. Pulses normal throughout. Respiratory: No respiratory distress. Painless inspiration. Breath sounds normal. No wheezes/rales/rhonchi noted. Chest nontender. No accessory muscle usage noted or decreased air movement noted. Abdomen: Soft and nontender. Bowel sounds normal in all 4 quadrants. No distention noted. No organomegaly noted. No visible injury noted. Back: No CVA tenderness. Full range of motion noted. Skin: Skin warm and dry. Normal skin color. Normal skin turgor. No rashes/lesions/lacerations noted. Extremities: No lower extremity edema. Extremities exhibit normal range of motion. Extremities nontender. Neuro: Oriented X 3. Cranial nerve exam: II-XII are grossly intact No motor deficit. No sensory deficit. Reflexes normal. Course Course Course Narrative: This is a Rapid Medical Examination (RME) performed by Venkata Gasca PA-C in triage. Full HPI, ROS, assessment and treatment plan per primary provider in the Main ED. 53 yo female here for eval of elevated blood pressure (180/100) and low HR (50) while at physical therapy today. sent here for eval. admits to intermittent palpitations and dizziness x1 week. reports dizziness, VALDEZ, and fatigue at present. no palpitations currently. denies chest pain, sob. + well appearing. RRR. lungs clear. Plan: labs, ekg, cxr Reevaluation(s) Reevaluation #1: Came in from rehab for dizziness and bradycardia in the 50s patient is taking no medication to cause bradycardia, patient in the emergency department heart rate is in the 60s with slight elevation blood pressure. Otherwise EKG shows no acute ischemic is negative troponin, patient at low risk for pulmonary embolism with negative D-dimer. Not orthostatic. Time: 19:57 Medical Decision Making Differential Diagnosis Differential Diagnoses: The differential diagnosis associated with the presentation includes (ACS, pulmonary embolism, orthostatic hypotension, bradycardia, dehydration, electrolyte derangement, severe anemia.) Admission/Observation Consideration of admission/observation: Escalation of care including admission/observation considered Lab Data MDM Lab Attestation statement: I reviewed the patient's lab results. 12/21/23 13:36 12/21/23 13:36 Labs: Lab Results 12/21/23 12/21/23 12/21/23 Range/Units 13:36 17:29 18:12 WBC 6.6 (4.8-10.8) X10*3/uL RBC 4.12 L (4.20-5.50) X10*6/uL Hgb 13.2 (12.0-16.0) g/dl Hct 38.9 (37.0-47.0) % MCV 94.4 (80.0-98.0) fL MCH 32.0 (27.0-33.0) pg MCHC 33.9 (31.0-35.0) g/dl RDW 12.0 (11.0-16.0) % Plt Count 258 (160-400) X10*3/uL MPV 10.0 (9.4-12.3) fL Immature Gran % (Auto) 0.3 (0.0-0.4) % Neut % (Auto) 58.2 (45-73) % Lymph % (Auto) 32.4 (20-40) % [place] % (Auto) 5.9 (2-11) % Eos % (Auto) 2.3 (0-4) % Baso % (Auto) 0.9 (0-2) % Lymph # (Auto) 2.1 (1.2-4.9) X10*3/uL [place] # (Auto) 0.4 (0.1-1.2) X10*3/uL Eos # (Auto) 0.2 (0.0-0.4) X10*3/uL Baso # (Auto) 0.1 (0.0-0.2) X10*3/uL Abs Immat Gran (auto) 0.02 (0.00-0.03) X10*3/uL Absolute Neuts (auto) 3.8 (2.0-8.3) x10*3/uL Absolute Nucleated RBC 0.000 (0.0-0.012) X10*3/uL Nucleated RBC % (auto) 0.0 (0.0-0.2) /100WBC PT 10.6 L (11.1-13.3) SEC INR 0.9 (0.9-1.1) D-Dimer High Sensitivty 226 NG/ML Sodium 141 (135-145) mmol/L Potassium 4.0 (3.3-5.1) mmol/L Chloride 108 (96-108) mmol/L Carbon Dioxide 26 (22-29) mmol/L Anion Gap 11 L (12-20) BUN 13 (9-16) mg/dL Creatinine 0.75 (0.5-1.4) mg/dL Estim Creat Clear Calc 103.4 Estimated GFR > 60 Random Glucose 130 H (60-115) mg/dL Estimat Average Glucose 128 mg/dL Hemoglobin A1c % 6.1 H (<6.0) % Calcium 9.9 D (8.4-10.2) mg/dL Magnesium 1.7 (1.6-2.6) mg/dL Troponin I High Sens < 2.7 < 2.7 (<3.5-17.0) ng/L B-Natriuretic Peptide 20 (<100) pg/mL TSH 1.22 (0.32-4.0) uIU/mL Influenza Type A (PCR) NEGATIVE (Negative) Influenza Type B (PCR) NEGATIVE (Negative) RSV RNA Qual (PCR) NEGATIVE (Negative) SARS-CoV-2 RNA (RT-PCR) NEGATIVE (Negative) Independent Interpretation I performed an independent interpretation of an: EKG (Normal sinus rhythm at 61 beats per minutes, normal intervals, ST-T changes, possible Q-waves anteroseptal.) and Plain X-Ray (Chest no acute intrathoracic pathology.) Radiology Impression Discussion of test interpretation with radiology: I have reviewed the radiologist's reading. Discharge Plan Discharge Clinical Impression: Dizziness Patient Disposition: Still a Patient Instructions: Dizziness (ED) Prescriptions: No Action atorvastatin 10 mg tablet 10 mg PO DAILY 90 Days Qty: 90 2RF trazodone 50 mg tablet 50 mg PO BEDTIME PRN (Reason: sleep) 90 Days Qty: 90 1RF citalopram 20 mg tablet 20 mg PO DAILY Qty: 90 1RF clonazepam 0.5 mg tablet 0.5 mg PO DAILY PRN (Reason: anxiety) 30 Days Qty: 30 0RF pregabalin 100 mg capsule 100 mg PO BID 30 Days Qty: 60 1RF (DME) blood-glucose meter [OneTouch Verio Reflect Meter] Misc See Rx Instructions .Route Qty: 1 0RF Rx Instructions: As directed (DME) OneTouch Verio test strips Strip See Rx Instructions .Route Qty: 100 1RF Rx Instructions: Test blood sugar once a day (DME) lancets [OneTouch Delica Plus Lancet] 33 gauge misc See Rx Instructions .Route Qty: 100 1RF Rx Instructions: Test blood sugar once a day qtuvweawcexi-Ik-yqhl-minerals 18-0.4 mg tablet PO Print Language: Andorran
--- NOTE | 2023-12-21 13:16 | ECG_ITS ---
Test Reason : palpitations Blood Pressure : / mmHG Vent. Rate : 061 BPM Atrial Rate : 061 BPM P-R Int : 132 ms QRS Dur : 068 ms QT Int : 380 ms P-R-T Axes : 025 005 044 degrees QTc Int : 382 ms Normal sinus rhythm Low voltage QRS Cannot rule out Anterior infarct , age undetermined Abnormal ECG No previous ECGs available Referred By: Dinah Gasca Electronically Signed By:MARYCRUZ CAMILO
[2023-12-21 13:41] LABS: MANUAL DIFF FLAG NO
[2023-12-21 13:44] LABS: Basophils Absolute Auto 0.1 X10*3/uL (0.0-0.2); Basophils Percent Auto 0.9 % (0-2); Eosinophils Absolute Auto 0.2 X10*3/uL (0.0-0.4); Eosinophils Percent Auto 2.3 % (0-4); Hematocrit 38.9 % (37.0-47.0); Hemoglobin 13.2 g/dl (12.0-16.0); Imm Gran Abs Auto 0.02 X10*3/uL (0.00-0.03); Imm Gran Pct Auto 0.3 % (0.0-0.4); Lymphocytes Absolute Auto 2.1 X10*3/uL (1.2-4.9); Lymphocytes Percent Auto 32.4 % (20-40); Mean Corpuscular HGB Conc 33.9 g/dl (31.0-35.0); Mean Corpuscular Volume 94.4 fL (80.0-98.0); Monocytes Absolute Auto 0.4 X10*3/uL (0.1-1.2); Monocytes Percent Auto 5.9 % (2-11); Neutrophils Absolute Auto 3.8 x10*3/uL (2.0-8.3); Neutrophils Percent Auto 58.2 % (45-73); Platelet Count 258 X10*3/uL (160-400); Red Blood Count 4.12 X10*6/uL (4.20-5.50); White Blood Count 6.6 X10*3/uL (4.8-10.8)
[2023-12-21 13:58] LABS: Anion Gap 11 (12-20); Blood Urea Nitrogen 13 mg/dL (9-16); Calcium 9.9 mg/dL (8.4-10.2); Carbon Dioxide 26 mmol/L (22-29); Chloride 108 mmol/L (96-108); Creatinine Clr Calc Pharmacy 103.4; Estimated Glomerular Filt Rate > 60; Glucose Random 130 mg/dL (60-115); Magnesium 1.7 mg/dL (1.6-2.6); Sodium 141 mmol/L (135-145)
[2023-12-21 13:59] LABS: Estimated Average Glucose 128 mg/dL; Hemoglobin A1C 152.6132 umol/L; Hemoglobin A1c % 6.1 % (<6.0)
[2023-12-21 14:05] LABS: B Type Natriuretic Peptide 20 pg/mL (<100); INTERNATIONAL NORM RATIO 0.9 (0.9-1.1); Prothrombin Time 10.6 SEC (11.1-13.3); Troponin-I High Sensitivity < 2.7 ng/L (<3.5-17.0)
[2023-12-21 14:19] LABS: TSH reflex Free T4 1.22 uIU/mL (0.32-4.0)
--- NOTE | 2023-12-21 17:31 | PC.NURSE ---
patient a&ox3, neuros intact, pt orthostats wnl, pt stated she had dizziness with position changes. pt currently denying pain, tech redrew troponin, color television console monitor intact- sinus sarbjit, call shepard within reach, will continue to monitor.
[2023-12-21 18:06] LABS: Troponin-I High Sensitivity < 2.7 ng/L (<3.5-17.0)
[2023-12-21 18:29] LABS: D Dimer High Sensitivity 226 NG/ML
--- NOTE | 2023-12-21 18:38 | PC.NURSE ---
this rn assumed care of pt, pt a&ox4, respirations even and unlabored. pt denies pain at this time.
[2023-12-21 18:53] LABS: Influenza A PCR NEGATIVE (Negative); Influenza B PCR NEGATIVE (Negative); Resp Syncy Virus RNA Qual PCR NEGATIVE (Negative); SARS COV2 PCR INHOUSE NEGATIVE (Negative)
== END 2023-12-21 20:50 | disposition home or self-care (01) ==
PROVIDERS: Physician Assistant Medical; Emergency Provider Emergency Medicine; PCP Nurse Practitioner Family
DX: R42 Dizziness and giddiness (principal); I10 Essential (primary) hypertension; R00.2 Palpitations; R00.1 Bradycardia, unspecified; Z03.818 Encounter for observation for suspected exposure to other biological agents ruled out; E78.00 Pure hypercholesterolemia, unspecified; Z87.891 Personal history of nicotine dependence; Z79.899 Other long term (current) drug therapy
CPT/HCPCS: 0241U; 36415; 71046; 80048; 83036; 83735; 83880; 84443; 84484; 85025; 85379; 85610; 93005; 99284; 99285

== ENCOUNTER 2024-01-03 11:13 | Outpatient (AMB) | payer OTHER, SELFPAY ==
[2024-01-03 11:14] VITALS: BP 120/80; PULSE 76; O2SAT 97; BMI 38.6
--- NOTE | 2024-01-03 11:14 | MHC.PC.OV ---
Vital Signs 01/03/24 11:14 Height 5 ft 4 in Weight 225 lb BMI 38.6 BP 120/80 Blood Pressure Location Rt brachial Position Sitting Pulse 76 Pulse Source Pulse Oximeter Pulse Oximetry (%) 97 Intake Visit Reasons: ED follow up - Blood pressure Intake Note: pt is here for ED follow up regarding blood pressure Coverstitch Binder Required: No Accompanied by: Self / Same As Patient Allergies Iodinated Contrast Media [IV CONTRAST] Allergy (Intermediate, Verified 01/03/24 11:14) HIVES azithromycin [From ZITHROMAX] Allergy (Unknown, Verified 01/03/24 11:14) RASH latex [LATEX] Allergy (Unknown, Verified 01/03/24 11:14) ITCHING levofloxacin [Levaquin] Allergy (Unknown, Verified 01/03/24 11:14) ? hives metronidazole Allergy (Unknown, Verified 01/03/24 11:14) ? hives penicillin G Allergy (Unknown, Verified 01/03/24 11:14) Anaphylaxis penicillin V Allergy (Unknown, Verified 01/03/24 11:14) Hives Penicillins [PENICILLINS] Allergy (Unknown, Verified 01/03/24 11:14) RASH sulfamethoxazole [From BACTRIM] Allergy (Unknown, Verified 01/03/24 11:14) RASH trimethoprim [From BACTRIM] Allergy (Unknown, Verified 01/03/24 11:14) RASH IV Dye Allergy (Unknown, Uncoded 12/21/23 13:18) Hives Medication List - Last Reconciled 01/03/24 by KYLEE Russo- atorvastatin 20 mg PO BEDTIME 90 days blood sugar diagnostic (OneTouch Verio test strips) Test blood sugar once a day blood-glucose meter (Curious HatTouch Verio Reflect Meter) As directed citalopram 20 mg PO DAILY clonazepam 0.5 mg PO DAILY PRN 30 days lancets (Curious HatTouch Delica Plus Lancet) Test blood sugar once a day losartan 25 mg PO DAILY 90 days kkotggqxivdy-Ia-njga-minerals tabs PO pregabalin 100 mg PO BID 30 days trazodone 50 mg PO BEDTIME PRN 90 days Tobacco use date assessed: 09/19/23 Dental Screening Dental Screen Date: 09/19/23 HPI ED follow up - Blood pressure HPI Details Pt was seen in the ER on 12/20 c/o palpitations and dizziness. She was found to be hypertensive and bradycardic at her PT session and was sent to the ER. EKG was negative for acute ischemia. Troponin was negative. Chest XR was negative. Pt reports doing well today. She reports that her blood pressure at home is in the 120s systolically. Will start low-dose losartan (starting with half a tab for one week). Will also increase atorvastatin from 10mg to 20mg. Denies chest pain, shortness of breath, headache, dizziness, and blurred vision. Pt will continue to monitor her blood sugar at home and bring values to her next appointment (newly diagnosed). NOTE: pt has quit smoking and drinking since her hospital experience. [facility] Medical History High cholesterol Depression Fibromyalgia Surgical History S/P tympanotomy with insertion of tube H/O removal of cyst History of back surgery Hx of appendectomy Family History Maternal Aunt Substance use disorder Maternal Uncle Substance use disorder Paternal Uncle Substance use disorder Paternal Aunt Substance use disorder Social History Housing: House Patient Tobacco Use Status: Former Tobacco user Cigarettes Per Day: 2 e-Cigarette/Vaping Use: Currently Using Second Hand Smoke Exposure: No Substance Use Type: Marijuana Current occupational status: disabled Cognitive needs: No Hearing needs: No Vision needs: No Questionnaire Thrive Questionnaire Date Thrive assessed: 10/03/23 KINGS-7 AMB Questionnaire KINGS-7 Date KINGS - 7 assessed: 10/03/23 Source: Developed by Drs. Oswaldo Keith, Yeni Angeles, Issa Riley and colleagues, with an educational yris from [employer]. Review of Systems Const Reports as per HPI Physical exam (Primary Care) Vital Signs: Last Vital Signs Pulse 76 01/03/24 11:14 BP 120/80 01/03/24 11:14 Pulse Ox 97 01/03/24 11:14 BMI result Body Mass Index 38.6 Tobacco/Smoking Status: Tobacco use Status Tobacco use date assessed 09/19/23 01/03/24 11:15 Patient Tobacco Use Status Former Tobacco user 01/03/24 11:15 e-Cigarette/Vaping Use Currently Using 01/03/24 11:15 Thrive Assessment: Date of Thrive Assessment Date Thrive assessed 10/03/23 01/03/24 11:15 Const General: cooperative Nutritional Appearance: obese Orientation/consciousness: patient oriented x3 Resp Effort & Inspection: normal respiratory effort Auscultation: clear to auscultation bilaterally Cardio Rate: regular rate Rhythm: regular rhythm Heart sounds: S1 normal heart sound present and S2 normal heart sound present Neuro General: patient oriented x3 Psych Appearance: grossly normal Mental Status: mental status grossly normal Speech and movement: Normal speech and movement present Affect: normal affect Attitude: cooperative Thought process: Normal thought process present Thought content: Normal thought content present Insight: Good insight present (Psych) Judgement: Good judgement present (Psych) Assessment and Plan Assessment & Plan (1) Newly diagnosed diabetes: Code(s): E11.9 - Type 2 diabetes mellitus without complications Plan: Pt will continue to monitor her blood sugar at home and bring values to next appointment (2) HTN (hypertension): Code(s): I10 - Essential (primary) hypertension Plan: Starting low-dose losartan Plan The patient agreed to the use of a medical interpreter for this encounter. Scribed for BRIDGET Pandya by Jenna Silvestre medical interpreter, on 01/03/2024 at 11:40 EST. Orders: Orders UA CC w/rflx Micro + Cult Today E11.9 - Type 2 diabetes mellitus without complications Lipid Panel Today E11.9 - Type 2 diabetes mellitus without complications Microalbumin, Random (w Creat) Today E11.9 - Type 2 diabetes mellitus without complications Complete Blood Count Auto Diff Today E11.9 - Type 2 diabetes mellitus without complications Comprehensive [place]. Panel Fast Today E11.9 - Type 2 diabetes mellitus without complications TSH reflex Free T4 Today E11.9 - Type 2 diabetes mellitus without complications Medications: New losartan 25 mg PO DAILY 90 days 90 tabs 0RF Changed From atorvastatin 10 mg PO DAILY 90 days 90 tabs 2RF To atorvastatin 20 mg PO BEDTIME 90 days 90 tabs 2RF Coding Level of Care Code Est Pt Level 3 (27431) Diagnoses Newly diagnosed diabetes E11.9 HTN (hypertension) I10
== END 2024-01-03 12:47 | disposition home or self-care (01) ==
PROVIDERS: PCP Nurse Practitioner Family; Visit Provider Nurse Practitioner Family
DX: E11.9 Type 2 diabetes mellitus without complications (principal); I10 Essential (primary) hypertension
CPT/HCPCS: 99213

== ENCOUNTER 2024-01-18 09:00 | Outpatient (RCR) | payer OTHER, SELFPAY ==
[2023-12-21 11:04] VITALS: BP 150/80; PULSE 52; O2SAT 98
== END 2024-06-03 07:32 | disposition home or self-care (01) ==
LOC: HO.PTWFD 09:00
PROVIDERS: PCP Nurse Practitioner Family; Visit Provider Orthopaedic Surgery
DX: M19.019 Primary osteoarthritis, unspecified shoulder (principal)
CPT/HCPCS: 97110; 97140; 97162; 97530; 97535

== ENCOUNTER 2024-02-05 12:52 | Outpatient (AMB) | payer OTHER, SELFPAY ==
[2024-02-05 12:54] VITALS: BMI 38.6
--- NOTE | 2024-02-05 12:54 | A.OFFVIS_ITS ---
Vital Signs 02/05/24 12:54 Height 5 ft 4 in Weight 225 lb BMI 38.6 Intake Visit Reasons: New Prob - Left Knee Pain Intake Note: Mandie is a 54 year old female who presents today for a new problem visit with complaints of left knee pain. Patient reports that she has had pain since about October, She reports that she took a fall. Once she fell she was unable to get up. Currently she has pain daily, she has trouble walking. She has been wearing a brace. She is taking Tylenol PRN pain, which is temporarily helpful. She has done Physical therapy. She is wearing a brace which provide some stability and comfort. [place] [facility] [place] MR/MR knee LT wo con IMPRESSION: 1. Complex tear of the posterior horn and body of the medial meniscus. 2. Complete tear of the anterior cruciate ligament likely subacute or old. 3. Minimal arthrosis of the patellofemoral and medial compartments. 4. Joint effusion and Mitchell's cyst. Allergies Iodinated Contrast Media [IV CONTRAST] Allergy (Intermediate, Verified 01/03/24 11:14) HIVES azithromycin [From ZITHROMAX] Allergy (Unknown, Verified 01/03/24 11:14) RASH latex [LATEX] Allergy (Unknown, Verified 01/03/24 11:14) ITCHING levofloxacin [Levaquin] Allergy (Unknown, Verified 01/03/24 11:14) ? hives metronidazole Allergy (Unknown, Verified 01/03/24 11:14) ? hives penicillin G Allergy (Unknown, Verified 01/03/24 11:14) Anaphylaxis penicillin V Allergy (Unknown, Verified 01/03/24 11:14) Hives Penicillins [PENICILLINS] Allergy (Unknown, Verified 01/03/24 11:14) RASH sulfamethoxazole [From BACTRIM] Allergy (Unknown, Verified 01/03/24 11:14) RASH trimethoprim [From BACTRIM] Allergy (Unknown, Verified 01/03/24 11:14) RASH IV Dye Allergy (Unknown, Uncoded 12/21/23 13:18) Hives HPI HPI New Prob - Left Knee Pain: Details: Mandie is a 54 year old female who presents today for a new problem visit with complaints of left knee pain. Patient reports that she has had pain since about October, She reports that she took a fall. Once she fell she was unable to get up. Currently she has pain daily, she has trouble walking. She has been wearing a brace. She is taking Tylenol PRN pain, which is temporarily helpful. She has done Physical therapy. She is wearing a brace which provide some stability and comfort. MRI done [place] [facility] [place] She has active and healthy. She has been doing okay except that she tried to go back to work and then twisted her knee and fell again her knee swelled up. [facility] Medical History High cholesterol Depression Fibromyalgia Surgical History S/P tympanotomy with insertion of tube H/O removal of cyst History of back surgery Hx of appendectomy Family History Maternal Aunt Substance use disorder Maternal Uncle Substance use disorder Paternal Uncle Substance use disorder Paternal Aunt Substance use disorder Social History Housing: House Patient Tobacco Use Status: Former Tobacco user Cigarettes Per Day: 2 e-Cigarette/Vaping Use: Currently Using Second Hand Smoke Exposure: No Substance Use Type: Marijuana Current occupational status: disabled Cognitive needs: No Hearing needs: No Vision needs: No Physical Exam Vital Signs: BMI result Body Mass Index 38.6 Const General: cooperative, healthy appearing, no acute distress, well developed and alert HEENT Head: Yes normal to inspection, Yes normocephalic and Yes atraumatic Mouth: moist mucous membranes Eyes General: appearance normal, both eyes and all related structures EOM: EOMs intact bilaterally Chest Other: no audible wheezing. Resp Other: No audible wheezing Effort & Inspection: normal respiratory effort Cardio Other: Radial pulse palpable with no rythmic abnormalities Back/Spine/Pelvis Cervical Spine: normal cervical lordosis Skin General skin exam: no rashes or lesions noted Neuro General: no focal motor deficits Extrem Other: Left knee with tenderness to palpation medial compartment and a mildly positive medial Iain's. 2+ Jane's/anterior drawer Negative pivot shift Mild effusion Full range of motion Psych Appearance: grossly normal and well kempt Mental Status: mental status grossly normal Speech and movement: Normal speech and movement present Affect: normal affect Attitude: cooperative Results Reviewed Results Reviewed: I personally reviewed the MR images. MR/MR knee LT wo con IMPRESSION: 1. Complex tear of the posterior horn and body of the medial meniscus. 2. Complete tear of the anterior cruciate ligament likely subacute or old. 3. Minimal arthrosis of the patellofemoral and medial compartments. 4. Joint effusion and Mitchell's cyst. Assessment & Plan Assessment & Plan (1) ACL (anterior cruciate ligament) rupture: Code(s): S83.519A - Sprain of anterior cruciate ligament of unspecified knee, initial encounter Category: Medical Plan: This is a 54-year-old with a ACL rupture on her left. She wants to have this reconstructed. I reviewed with her the MRI and the pathophysiology of this injury. She feels like she is capable of taking at least 6 months off from work and that she will do her physical therapy exercises. I discussed with the risk of stiffness, infection, re-injury, inability to return to prior level of activity. She expressed understanding. I also discussed the medial meniscus injury and likely that that will require a partial medial meniscectomy as opposed to meniscal repair. She expressed understanding and would like to proceed forward accordingly. (2) Complex tear of meniscus of left knee: Code(s): S83.204A - Other tear of unspecified meniscus, current injury, left knee, initial encounter Category: Medical Plan: Coding Level of Care Code Est Pt Level 4 (28968) Diagnoses ACL (anterior cruciate ligament) rupture S83.519A Complex tear of meniscus of left knee S83.204A
== END 2024-02-05 13:34 | disposition home or self-care (01) ==
PROVIDERS: PCP Nurse Practitioner Family; Visit Provider Orthopaedic Surgery
DX: S83.519A Sprain of anterior cruciate ligament of unspecified knee, initial encounter (principal); S83.204A Other tear of unspecified meniscus, current injury, left knee, initial encounter; W19.XXXA Unspecified fall, initial encounter
CPT/HCPCS: 99214

== ENCOUNTER → 2024-02-05 12:52 | Outpatient (BNVA) | payer OTHER, SELFPAY | PROVIDERS: PCP Nurse Practitioner Family; Visit Provider Orthopaedic Surgery | DX: S83.232A Complex tear of medial meniscus, current injury, left knee, initial encounter (principal); S83.512A Sprain of anterior cruciate ligament of left knee, initial encounter; X58.XXXA Exposure to other specified factors, initial encounter; Y93.9 Activity, unspecified; Y92.9 Unspecified place or not applicable; Y99.9 Unspecified external cause status | CPT/HCPCS: 99212 ==

== ENCOUNTER → 2024-02-07 09:40 | Outpatient (BNV) | payer OTHER, SELFPAY | PROVIDERS: PCP Nurse Practitioner Family; Visit Provider Internal Medicine Cardiovascular Disease | DX: R00.1 Bradycardia, unspecified (principal) | CPT/HCPCS: 93010 ==

== ENCOUNTER 2024-02-21 09:23 | Day surgery (SDC) | payer OTHER, SELFPAY ==
--- NOTE | 2024-02-07 09:40 | ECG_ITS ---
Test Reason : SPRAINED ANTERIOR KNEE Blood Pressure : / mmHG Vent. Rate : 056 BPM Atrial Rate : 056 BPM P-R Int : 176 ms QRS Dur : 072 ms QT Int : 414 ms P-R-T Axes : 055 036 062 degrees QTc Int : 399 ms Sinus bradycardia Low voltage QRS Borderline ECG When compared with ECG of 21-DEC-2023 13:26, No significant change was found Referred By: Alen Casey Electronically Signed By:ARON LANDRY MD
[2024-02-07 09:58] LABS: MANUAL DIFF FLAG NO
[2024-02-07 10:37] LABS: Basophils Percent Auto 0.6 % (0-2); Eosinophils Absolute Auto 0.2 X10*3/uL (0.0-0.4); Eosinophils Percent Auto 3.4 % (0-4); Hematocrit 40.3 % (37.0-47.0); Hemoglobin 13.4 g/dl (12.0-16.0); Imm Gran Abs Auto 0.02 X10*3/uL (0.00-0.03); Imm Gran Pct Auto 0.3 % (0.0-0.4); Lymphocytes Absolute Auto 1.7 X10*3/uL (1.2-4.9); Lymphocytes Percent Auto 27.7 % (20-40); Mean Corpuscular HGB Conc 33.3 g/dl (31.0-35.0); Mean Corpuscular Hemoglobin 31.6 pg (27.0-33.0); Mean Platelet Volume 10.3 fL (9.4-12.3); Monocytes Absolute Auto 0.4 X10*3/uL (0.1-1.2); Monocytes Percent Auto 6.9 % (2-11); Neutrophils Absolute Auto 3.8 x10*3/uL (2.0-8.3); Neutrophils Percent Auto 61.1 % (45-73); Platelet Count 300 X10*3/uL (160-400); Red Blood Count 4.24 X10*6/uL (4.20-5.50); Red Cell Distribution Width 12.4 % (11.0-16.0); White Blood Count 6.3 X10*3/uL (4.8-10.8)
[2024-02-07 10:41] LABS: INTERNATIONAL NORM RATIO 0.9 (0.9-1.1); Prothrombin Time 10.2 SEC (10.9-12.4)
[2024-02-07 10:44] LABS: Partial Thromboplastin Time 30.1 SEC (26.0-36.8)
[2024-02-07 10:52] LABS: Estimated Average Glucose 131 mg/dL; Hemoglobin A1C 149.2226 umol/L; Hemoglobin A1c % 6.2 % (<6.0); Total Hemoglobin (HGBA1C) 3335.9892 umol/L
[2024-02-07 11:18] LABS: Alanine Aminotransferase 15 U/L (0-31); Albumin Level 4.2 g/dL (3.5-5.0); Alkaline Phosphatase 68 U/L (39-117); Anion Gap 11 (12-20); Aspartate Amino Transferase 12 U/L (5-31); Bilirubin Total 0.6 mg/dL (0.0-1.0); Blood Urea Nitrogen 14 mg/dL (9-16); Calcium 9.7 mg/dL (8.4-10.2); Carbon Dioxide 27 mmol/L (22-29); Chloride 109 mmol/L (96-108); Cholesterol 156 mg/dL (<200); Estimated Glomerular Filt Rate > 60; Glucose Fasting 134 mg/dL (60-99); HDL Cholesterol 62 mg/dL (>40); LDL Cholesterol Calculated 75 mg/dL (<100); Sodium 143 mmol/L (135-145); Total Protein 7.1 g/dL (6.5-8.0); Triglycerides 98 mg/dL (<150)
[2024-02-07 11:33] LABS: TSH reflex Free T4 1.79 uIU/mL (0.32-4.0)
[2024-02-19 09:48] VITALS: BMI 38.6
--- NOTE | 2024-02-20 10:06 | P.CONAN_ITS ---
Documented by User: Malissa Villeda NP 02/20/24 10:06 HPI - Anesthesia Eval Consult details Narrative: 54yo F for Left ACL Reconstruction with Allograft PMFSH Active Problems Active Problems: All Active Problems Pre-op evaluation (Acute) ACL (anterior cruciate ligament) rupture (Acute) Complex tear of meniscus of left knee (Acute) HTN (hypertension) (Acute) Newly diagnosed diabetes (Acute) Osteoarthritis of glenohumeral joint (Acute) Left knee injury (Acute) Swelling of knee joint, left (Acute) Knee pain, left (Acute) Left shoulder pain (Acute) Screening for cervical cancer (Acute) Elevated liver enzymes (Acute) Physical exam (Acute) Screening for colon cancer (Acute) Bloody nose (Acute) Heel pain, bilateral (Acute) Past Medical History Medical History High cholesterol Depression Fibromyalgia Family History Family History Maternal Aunt Substance use disorder Maternal Uncle Substance use disorder Paternal Uncle Substance use disorder Paternal Aunt Substance use disorder Surgical History Surgical History S/P tympanotomy with insertion of tube H/O removal of cyst History of back surgery Hx of appendectomy Social History Social History Housing: House Patient Tobacco Use Status: Former Tobacco user Cigarettes Per Day: 2 e-Cigarette/Vaping Use: Currently Using Second Hand Smoke Exposure: No Use of substances other than those prescribed or required for medical reasons: Yes Substance Use Type: Marijuana Substance Use Type Other:: last smoked yesterday Advance Directives: No Advance Directives Information Provided: Yes Current occupational status: disabled Cognitive needs: No Hearing needs: No Vision needs: No Meds Allergies Allergy/AdvReac Type Severity Reaction Status Date / Time Iodinated Contrast Media Allergy Intermediate HIVES Verified 02/21/24 10:08 [IV CONTRAST] azithromycin [From ZITHROMAX] Allergy Unknown RASH Verified 02/21/24 10:08 latex [LATEX] Allergy Unknown ITCHING Verified 02/21/24 10:08 levofloxacin [Levaquin] Allergy Unknown ? hives Verified 02/21/24 10:08 metronidazole Allergy Unknown ? hives Verified 02/21/24 10:08 penicillin G Allergy Unknown Anaphylaxis Verified 02/21/24 10:08 penicillin V Allergy Unknown Hives Verified 02/21/24 10:08 Penicillins [PENICILLINS] Allergy Unknown RASH Verified 02/21/24 10:08 sulfamethoxazole Allergy Unknown RASH Verified 02/21/24 10:08 [From BACTRIM] trimethoprim [From BACTRIM] Allergy Unknown RASH Verified 02/21/24 10:08 IV Dye Allergy Unknown Hives Uncoded 02/21/24 10:08 Home Medications ?Medication ?Instructions ?Recorded ?Confirmed ?Last Taken ?Type diercwwlelcx-Aj-eomv-minerals 18 tab PO 09/14/22 01/03/24 Unknown History mg-0.4 mg tablet Exam Height,Weight and Vital Signs: Height 5 ft 4 in Weight 102.058 kg Pertinent Lab Results Pertinent Lab Results: Laboratory Tests 02/07/24 09:57 WBC 6.3 RBC 4.24 Hgb 13.4 Hct 40.3 MCV 95.0 MCH 31.6 MCHC 33.3 RDW 12.4 Plt Count 300 MPV 10.3 Immature Gran % (Auto) 0.3 Neut % (Auto) 61.1 Lymph % (Auto) 27.7 Morgan % (Auto) 6.9 Eos % (Auto) 3.4 Baso % (Auto) 0.6 Lymph # (Auto) 1.7 Morgan # (Auto) 0.4 Eos # (Auto) 0.2 Baso # (Auto) 0.0 Abs Immat Gran (auto) 0.02 Absolute Neuts (auto) 3.8 Absolute Nucleated RBC 0.000 Nucleated RBC % (auto) 0.0 PT 10.2 L INR 0.9 APTT 30.1 Sodium 143 Potassium 4.0 Chloride 109 H Carbon Dioxide 27 Anion Gap 11 L BUN 14 Creatinine 0.72 Estim Creat Clear Calc TNP Estimated GFR > 60 Fasting Glucose 134 H Estimat Average Glucose 131 Hemoglobin A1c % 6.2 H Calcium 9.7 Total Bilirubin 0.6 AST 12 ALT 15 Alkaline Phosphatase 68 Total Protein 7.1 Albumin 4.2 Triglycerides 98 Cholesterol 156 LDL Cholesterol, Calc 75 HDL Cholesterol 62 TSH 1.79 Narrative Narrative: EKG 01/2024 Vent. Rate : 056 BPM Atrial Rate : 056 BPM P-R Int : 176 ms QRS Dur : 072 ms QT Int : 414 ms P-R-T Axes : 055 036 062 degrees QTc Int : 399 ms Sinus bradycardia Low voltage QRS Borderline ECG When compared with ECG of 21-DEC-2023 13:26, No significant change was found Assessment and Plan Assessment Anesthesia Assessment: Chart Reviewed Documented by User: Isidra Herron MD 02/21/24 12:58 PMFSH Past Medical History Medical History High cholesterol Depression Fibromyalgia Family History Family History Maternal Aunt Substance use disorder Maternal Uncle Substance use disorder Paternal Uncle Substance use disorder Paternal Aunt Substance use disorder Surgical History Surgical History S/P tympanotomy with insertion of tube H/O removal of cyst History of back surgery Hx of appendectomy History of Problems with Anesthesia: No Social History Social History Housing: House Patient Tobacco Use Status: Former Tobacco user Cigarettes Per Day: 2 e-Cigarette/Vaping Use: Currently Using Second Hand Smoke Exposure: No Use of substances other than those prescribed or required for medical reasons: Yes Substance Use Type: Marijuana Substance Use Type Other:: last smoked yesterday Advance Directives: No Advance Directives Information Provided: Yes Current occupational status: disabled Cognitive needs: No Hearing needs: No Vision needs: No Meds Allergies Allergy/AdvReac Type Severity Reaction Status Date / Time Iodinated Contrast Media Allergy Intermediate HIVES Verified 02/21/24 10:08 [IV CONTRAST] azithromycin [From ZITHROMAX] Allergy Unknown RASH Verified 02/21/24 10:08 latex [LATEX] Allergy Unknown ITCHING Verified 02/21/24 10:08 levofloxacin [Levaquin] Allergy Unknown ? hives Verified 02/21/24 10:08 metronidazole Allergy Unknown ? hives Verified 02/21/24 10:08 penicillin G Allergy Unknown Anaphylaxis Verified 02/21/24 10:08 penicillin V Allergy Unknown Hives Verified 02/21/24 10:08 Penicillins [PENICILLINS] Allergy Unknown RASH Verified 02/21/24 10:08 sulfamethoxazole Allergy Unknown RASH Verified 02/21/24 10:08 [From BACTRIM] trimethoprim [From BACTRIM] Allergy Unknown RASH Verified 02/21/24 10:08 IV Dye Allergy Unknown Hives Uncoded 02/21/24 10:08 Home Medications ?Medication ?Instructions ?Recorded ?Confirmed ?Last Taken ?Type ecfdkcjrvisl-Co-ydim-minerals 18 tab PO 09/14/22 01/03/24 Unknown History mg-0.4 mg tablet Exam Airway Mallampati Class: II TM Dist: >3cm Neck ROM: Full Partial: Upper and Lower Loose/Missing/Broken Teeth: Yes, Upper and Lower Heart: RRR Lungs: CTA Assessment and Plan Assessment Anesthesia Assessment: Anesthesia Plan Discussed Final Anesthetic Review History of Problems with Anesthesia: No NPO: Yes ASA Class: II Final Preanesthetic Review: Meds/Allgs Chart Reviewed, Consent Obtained/Reviewed and Anes Risks/Benef Reviewed Patient Risk: Low Procedure Risk: Low Anesthetic Plan Anesthetic Plan: GA Disposition: Standard PACU
[2024-02-21 09:58] VITALS: BMI 36.4
[2024-02-21 10:17] VITALS: BP 135/70; PULSE 56; TEMP 36.8
[2024-02-21] MEDS: Lactated Ringers 1,000 ML 100 ML IVCONT (10:27)
--- NOTE | 2024-02-21 11:00 | MHC.SHP ---
Pre-Procedural Eval Section A - 24 Hr Update-Section A only Date of Service: 02/21/24 The patient is an INPATIENT: No Changes since office visit: No Cold of Flu in the past 2 weeks, No New Medical Problems, No Changes in Medication and No Patient answered all questions The patient has been examined within 24 hours of the surgical procedure. The History & Physical has been completed within 30 days and I have reviewed it.: Yes Section B - Complete if H&P > 30 days Chief Complaint: Sprain of anterior cruciate ligament of left knee, Allergies: Allergies Allergy/AdvReac Type Severity Reaction Status Date / Time Iodinated Contrast Media Allergy Intermediate HIVES Verified 02/21/24 10:08 [IV CONTRAST] azithromycin [From ZITHROMAX] Allergy Unknown RASH Verified 02/21/24 10:08 latex [LATEX] Allergy Unknown ITCHING Verified 02/21/24 10:08 levofloxacin [Levaquin] Allergy Unknown ? hives Verified 02/21/24 10:08 metronidazole Allergy Unknown ? hives Verified 02/21/24 10:08 penicillin G Allergy Unknown Anaphylaxis Verified 02/21/24 10:08 penicillin V Allergy Unknown Hives Verified 02/21/24 10:08 Penicillins [PENICILLINS] Allergy Unknown RASH Verified 02/21/24 10:08 sulfamethoxazole Allergy Unknown RASH Verified 02/21/24 10:08 [From BACTRIM] trimethoprim [From BACTRIM] Allergy Unknown RASH Verified 02/21/24 10:08 IV Dye Allergy Unknown Hives Uncoded 02/21/24 10:08 Plan I have reviewed the history and physical and performed a pertinent physical examination on my patient. No changes have occurred unless specified. Time Spent With Patient Time: Total time managing care of this patient today ____ minutes.
--- NOTE | 2024-02-21 13:12 | P.BOP_ITS ---
Brief Operative Note Date of Service: 02/21/24 Pre-op diagnosis: Left ACL tear Post-op diagnosis: other (1) same 2) left medial meniscus tear) Procedure: Left ACL reconstruction with allograft and partial medial meniscectomy Implants: [employer]hew ACL endobutton and 10x 25 tibial interference screw with Allograft Surgeon: Hugo Patel MD Anesthesia: GLMA and regional Was an Pinsetter Mechanic Automatic used for this Procedure?: Yes Pinsetter Mechanic Automatic: Opal Amaro Estimated blood loss (mL): 25 Tourniquet time (min): 45 IV fluids (mL): 800 Pathology: none sent Condition: stable Disposition: PACU
[2024-02-21 13:26] VITALS: BP 139/91; PULSE 59; RESP 16; TEMP 36.3; O2SAT 98
[2024-02-21 13:31] VITALS: BP 131/64; PULSE 59; RESP 16; O2SAT 95
[2024-02-21 13:36] VITALS: BP 149/78; PULSE 61; RESP 16; O2SAT 95
[2024-02-21 13:41] VITALS: BP 119/65; PULSE 54; RESP 16; O2SAT 97
[2024-02-21] MEDS: oxyCODONE HCl Immed Release 5 MG TABLET PO (13:50)
[2024-02-21 13:56] VITALS: BP 124/70; PULSE 58; RESP 16; TEMP 36.3; O2SAT 98
--- NOTE | 2024-03-01 16:10 | W.PM.OPN ---
Operative Note Operative Note Date of Service: 02/21/24 Narrative: Date of Service: 02/21/24 Pre-op diagnosis: Left ACL tear Post-op diagnosis: other (1) same 2) left medial meniscus tear) Procedure: Left ACL reconstruction with allograft and partial medial meniscectomy Implants: [employer]hew ACL endobutton and 10x 25 tibial interference screw with Allograft Surgeon: Hugo Patel MD Anesthesia: GLMA and regional Was an Deaf Interpreter used for this Procedure?: Yes Deaf Interpreter: Opal Amaro Estimated blood loss (mL): 25 Tourniquet time (min): 45 IV fluids (mL): 800 Pathology: none sent Condition: stable Disposition: PACU Procedure in detail: Patient was brought to the operating room placed supine on the arthroscopic table and prepped and draped in standard sterile fashion. A time-out was called to identify proper site proper procedure proper surgeon and IV antibiotics per weight were administered. Under anesthesia she had a + pivot shift. I began by exsanguinating the limb and insufflating tourniquet to 300 mm Hg. Then made a standard anterolateral stab incision. The knee was insufflated with water and 30 degree arthroscope was placed. There was grade 1 fibrillations of the patella but overall suprapatellar pouch and the gutters were clean. I descended into the medial compartment where I made my far medial portal under direct visualization. There was a small medial meniscus tear in the white/white zone. The root was intact and there were scaattered grade 1 changes of the MFC. I used as shaver to debride the unstable portions of the meniscus. Once I was satisfied with the small meniscectomy I examined the notch where there was a + empty wall sign and an intact PCL. I debrided the stump and acl footprint and performed a limited notchplasty. I then, through a far AM portal and a 7mm behind the back guide, drilled a k-wire through the LFC with the knee in hyper-flexion. I measured the tunnel as a 36 and then after sizing the allograft on the back table drilled a 28 mm tunnel with an 10 mm reamer. The final 6 mm was drilled iwth a 4.5 reamer. I then pulled a suture through the femoral tunnel and turned my attention to the tibia. I did examine the femoral tunnel and was satisfied with the posterior wall and its location low and medial at the anatomic footprint. I placed my tibial drill guide in 55 deg and, through a anteromedial inc just lateral to the tibial tubercle placed a k-wire into the notch exiting just medial to the anterior horn insertion of the lateral meniscus. I then over-reamed with a 10 reamer. I cleaned the tunnels up with a shaver. On the back table I whip-stitched the allograft to fit through a 10aperture and attached the femoral button to the looped end. I placed the graft on 15lbs of tension for 10 minutes. I then passed the allograft through the tibial tunnel and femoral tunnel and flipped the button. I cycled the knee about 10-15 cycles and then placed a tibial interference screw with the knee in hyper-extension while holding the graft taught. Once I was satisfied that the interference screw was buried I examined the ACL and the medial meniscus repair. The repair was stable and the ACL was not impinging and there was a negative pivot shift. I then removed all instrumentation and closed the incisions with nylon. Patient was then placed in sterile dressings and a hinged knee brace. She was then extubated brought recovery room stable condition. There were no known complications.
== END 2024-02-21 14:22 | disposition home or self-care (01) ==
LOC: HO.SSS 09:24
PROVIDERS: PCP Nurse Practitioner Family; Visit Provider Orthopaedic Surgery
PROC: (CPT 27428; principal; 2024-02-21 12:50)
DX: S83.512A Sprain of anterior cruciate ligament of left knee, initial encounter (principal); S83.242A Other tear of medial meniscus, current injury, left knee, initial encounter; M17.12 Unilateral primary osteoarthritis, left knee; M25.462 Effusion, left knee; M71.22 Synovial cyst of popliteal space [Baker], left knee; M25.562 Pain in left knee; R26.2 Difficulty in walking, not elsewhere classified; W19.XXXA Unspecified fall, initial encounter; Y93.9 Activity, unspecified; Y92.9 Unspecified place or not applicable; Y99.9 Unspecified external cause status; I10 Essential (primary) hypertension; E11.9 Type 2 diabetes mellitus without complications; M79.7 Fibromyalgia; E78.00 Pure hypercholesterolemia, unspecified; F32.A Depression, unspecified; R04.0 Epistaxis; Z79.899 Other long term (current) drug therapy; Z91.040 Latex allergy status; Z91.041 Radiographic dye allergy status; Z88.0 Allergy status to penicillin; Z88.1 Allergy status to other antibiotic agents; Z88.2 Allergy status to sulfonamides; Z98.890 Other specified postprocedural states; F17.290 Nicotine dependence, other tobacco product, uncomplicated
CPT/HCPCS: 29888; 29881; 36415; 80053; 80061; 83036; 84443; 85025; 85610; 85730; 93005; C1713; C1762; J0131; J0171; J0665; J0736; J1100; J1885; J2003; J2250; J2405; J2704; J3010

== ENCOUNTER → 2024-02-21 09:23 | Outpatient (BNV) | payer OTHER, SELFPAY | PROVIDERS: PCP Nurse Practitioner Family; Visit Provider Orthopaedic Surgery | DX: S83.512A Sprain of anterior cruciate ligament of left knee, initial encounter (principal); S83.242A Other tear of medial meniscus, current injury, left knee, initial encounter | CPT/HCPCS: 29881; 29888 ==

== ENCOUNTER 2024-02-29 11:05 | Outpatient (AMB) | payer OTHER, SELFPAY ==
--- NOTE | 2024-02-29 11:21 | MHC.OFFVIS ---
Intake Visit Reasons: PO LT knee ACL 02/21/24 NE Intake Note: Mandie is a 54 year old female who presents today for a post op appointment s/p LT knee ACL 02/21/24 NE. Patient reports she is doing well, brace was casuing her a bit of pain. I was able to adjust the brace for the patient. Allergies Iodinated Contrast Media [IV CONTRAST] Allergy (Intermediate, Verified 02/29/24 11:31) HIVES azithromycin [From ZITHROMAX] Allergy (Unknown, Verified 02/29/24 11:31) RASH latex [LATEX] Allergy (Unknown, Verified 02/29/24 11:31) ITCHING levofloxacin [Levaquin] Allergy (Unknown, Verified 02/29/24 11:31) ? hives metronidazole Allergy (Unknown, Verified 02/29/24 11:31) ? hives penicillin G Allergy (Unknown, Verified 02/29/24 11:31) Anaphylaxis penicillin V Allergy (Unknown, Verified 02/29/24 11:31) Hives Penicillins [PENICILLINS] Allergy (Unknown, Verified 02/29/24 11:31) RASH sulfamethoxazole [From BACTRIM] Allergy (Unknown, Verified 02/29/24 11:31) RASH trimethoprim [From BACTRIM] Allergy (Unknown, Verified 02/29/24 11:31) RASH IV Dye Allergy (Unknown, Uncoded 02/21/24 10:08) Hives HPI HPI PO LT knee ACL 02/21/24 NE: Details: 54-year-old female who presents in the office today 8 days status post left ACL reconstruction with allograft and partial medial meniscectomy which was performed on 02/21/[address] Patel. While in the office today, the patient reports she is doing well with respect to her left knee pain. She mentions mild pain associated with the brace. [facility] Medical History High cholesterol Depression Fibromyalgia Surgical History S/P tympanotomy with insertion of tube H/O removal of cyst History of back surgery Hx of appendectomy Family History Maternal Aunt Substance use disorder Maternal Uncle Substance use disorder Paternal Uncle Substance use disorder Paternal Aunt Substance use disorder Social History Housing: House Patient Tobacco Use Status: Former Tobacco user Cigarettes Per Day: 2 e-Cigarette/Vaping Use: Currently Using Second Hand Smoke Exposure: No Substance Use Type: Marijuana Current occupational status: disabled Cognitive needs: No Hearing needs: No Vision needs: No Review of Systems Const All systems reviewed & are unremarkable except as noted in HPI and below Physical Exam Const General: cooperative, healthy appearing and no acute distress Resp Effort & Inspection: normal respiratory effort and able to speak in complete sentences Cardio Rate: regular rate Peripheral pulses: Peripheral pulses 2+ throughout GI Palpation (GI): Soft to palpation Skin Lesions: no lesions Rashes: no rashes Extrem Other: Left knee: Incision sites are clean, dry, and intact. Sutures intact. No surrounding erythema or drainage. No signs of infection. NVI. Assessment & Plan Assessment & Plan (1) S/P ACL reconstruction: Comment: Status post left ACL reconstruction with allograft and partial medial meniscectomy Code(s): Z98.890 - Other specified postprocedural states Category: Surgical Plan Ms. Rosa is a 54-year-old female who presents in the office today 8 days status post left ACL reconstruction with allograft and partial medial meniscectomy which was performed on 02/21/[address] Patel. While in the office today, the patient reports she is doing well with respect to her left knee pain. She mentions mild pain associated with the brace. Sutures were removed, and steri-strips were applied. The patient was placed back into the brace and will remain in the sling until the quad control allows. She will start attending physical therapy with her first appointment on 03/01/2024. Follow-up will be in [address] Patel, or sooner if needed. Medications: Changed From oxycodone-acetaminophen 5-325 mg (Percocet) Partial Fill upon patient request. 1 tab PO Q4-6H 7 days PRN 42 tabs 0RF pain (scale score 4-6) To oxycodone-acetaminophen 5-325 mg (Percocet) Partial Fill upon patient request. 1 tab PO Q6H PRN 28 tabs 0RF pain (scale score 4-6) 7 days Patient Instructions: Scribed by Tonia Stone medical record administrator, for Opal Amaro PA-C on 02/29/24 at 11:34 am EST. Coding Level of Care Code Global (83518) Diagnoses S/P ACL reconstruction Z98.890
== END 2024-02-29 12:18 | disposition home or self-care (01) ==
LOC: HO.HOS 11:05
PROVIDERS: PCP Nurse Practitioner Family; Visit Provider Physician Assistant
DX: Z98.890 Other specified postprocedural states (principal)
CPT/HCPCS: 99024

== ENCOUNTER → 2024-02-29 11:05 | Outpatient (BNVA) | payer OTHER, SELFPAY | PROVIDERS: PCP Nurse Practitioner Family; Visit Provider Physician Assistant | DX: Z47.89 Encounter for other orthopedic aftercare (principal); Z98.890 Other specified postprocedural states | CPT/HCPCS: 99212 ==

== ENCOUNTER 2024-03-21 09:52 | Outpatient (AMB) | payer OTHER, SELFPAY ==
--- NOTE | 2024-03-21 09:56 | A.OFFPC_ITS ---
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 hives metronidazole Allergy (Unknown, Verified 03/21/24 10:24) ? hives penicillin G Allergy (Unknown, Verified 03/21/24 10:24) Anaphylaxis penicillin V Allergy (Unknown, Verified 03/21/24 10:24) Hives Penicillins [PENICILLINS] Allergy (Unknown, Verified 03/21/24 10:24) RASH sulfamethoxazole [From BACTRIM] Allergy (Unknown, Verified 03/21/24 10:24) RASH trimethoprim [From BACTRIM] Allergy (Unknown, Verified 03/21/24 10:24) RASH IV Dye Allergy (Unknown, Uncoded 03/21/24 10:24) Hives Medication List - Last Reconciled 03/21/24 by Alen Casey REWRITER- atorvastatin 20 mg PO BEDTIME 90 days blood sugar diagnostic ([employer]ova[employer]Touch Verio test strips) Test blood sugar once a day blood-glucose meter (NovaSparksTouch Verio Reflect Meter) As directed citalopram 20 mg PO DAILY clonazepam 0.5 mg PO DAILY PRN 30 days hydroxyzine HCl 50 mg PO BID PRN 14 days lancets (NovaSparksTouch Delica Plus Lancet) Test blood sugar once a day esxbcvtrxapu-Gu-idxo-minerals tabs PO pregabalin 100 mg PO BID 30 days trazodone 50 mg PO BEDTIME PRN 90 days Tobacco use date assessed: 09/19/23 Dental Screening Dental Screen Date: 09/19/23 HPI 6 month follow up HPI Details History of Present Illness The patient is a 54-year-old female presenting with Type 2 Diabetes Mellitus for follow-up care. Her hemoglobin A1c was recorded at 6.2% during her last lab evaluation, reflecting good glycemic control. The patient is currently managing her condition through dietary modifications and plans to initiate an exercise regimen post-recovery from a recent knee surgery. She reports having experienced numbness and tingling in her feet related to the surgical recovery, but not as a general symptom. The patient has a history of hypertension that is currently stable. She had been experiencing hyperlipidemia but is on statin therapy, which is contributing to well-managed cholesterol levels. She also has been dealing with knee pain, which has improved significantly post-surgery. The patient recently quit smoking with the aid of nicotine pouches, which has positively impacted her overall health, including weight management. referred to ophthalmology. Social History - Recently quit smoking with nicotine po uch assistance. - Planning to incorporate exercise post- recovery from knee surgery. - Demonstrating dietary management for laura chacko. - Experiences positive social support fr healthcare providers. Review of Systems - Neurological: Reports numbness and tin gling in extremities related to surgery. Physical Exam - Cardiovascular- S1, S2 normal. - Pulmonary- Lungs clear. - Neurological- Positive monofilament se nsation in feet, feet intact (5th toes pointing medial, rolled over 4th toes bilat). - General- Alert and oriented x3, clear speech. Results - Labs: Hemoglobin A1c 6.2%, cholesterol levels well-managed, liver enzymes normal. Plan - Type 2 Diabetes Mellitus: Continue cur rent dietary management; no adjustments to medication as A1c is controlled. Encourage resumption of exercise routine once knee recovery permits. consider the addition of renal protective therapy in the future (depending on BP). - Hyperlipidemia: Continue statin therap y for cholesterol management. - Knee Pain: Continue current rehabilita tive exercises and follow-up as needed. - Tobacco Use: Continue abstinence from smoking with nicotine pouch assistance; reinforce cessation benefits. Patient was informed and verbally consented to the use of an ambient scribe for clinic note documentation during this visit. Discussion Notes Patient Instructions - Maintain current diabetes dietary pete gement plan. - Continue smoking cessation efforts wit h nicotine pouches. - Initiate post-surgery exercise routine as soon as feasible for knee rehabilitation. - Attend scheduled follow-up appointment s for diabetes monitoring. - Contact the clinic if any new symptoms or concerns regarding blood pressure arise. - Schedule next A1c test as advised nicole subramanian this visit. [facility] Medical History High cholesterol Depression Fibromyalgia Surgical History S/P tympanotomy with insertion of tube H/O removal of cyst History of back surgery Hx of appendectomy Family History Maternal Aunt Substance use disorder Maternal Uncle Substance use disorder Paternal Uncle Substance use disorder Paternal Aunt Substance use disorder Social History Housing: House Patient Tobacco Use Status: Former Tobacco user Cigarettes Per Day: 2 e-Cigarette/Vaping Use: Currently Using Second Hand Smoke Exposure: No Substance Use Type: Marijuana service: No Current occupational status: disabled Cognitive needs: No Hearing needs: No Vision needs: No Questionnaire PHQ-9 Over the last 2 weeks, how often have you been bothered by any of the following problems? 1. Little interest or pleasure in doing things: not at all 2. Feeling down, depressed, or hopeless: not at all 3. Trouble falling or staying asleep, or sleeping too much: not at all 4. Feeling tired or having little energy: not at all 5. Poor appetite or overeating: not at all 6. Feeling bad about yourself - or that you are a failure or have let yourself or your family down: not at all 7. Trouble concentrating on things, such as reading the newspaper or watching television: not at all 8. Moving or speaking so slowly that other people could have noticed. Or the opposite - being so fidgety or restless that you have been moving around a lot more than usual: not at all 9. Thoughts that you would be better off or of hurting yourself in some way: not at all Total score: 0 Depression Screening Interpretation: Negative Depression Screening Done: Yes 74026 - PHQ-9 Billing: Yes Source: Developed by Drs. Oswaldo Keith, Yeni Angeles, Issa Riley and colleagues, with an educational yris from [employer]. Thrive Questionnaire Date Thrive assessed: 03/21/24 I am a: Patient What is your living situation today?: I have a steady place to live Within the past 12 months, did the food you bought not last and you didn't have the money to get more?: Never true Within the past 12 months, did you worry whether your food would run out before you got money to buy more?: Never true Do you have trouble paying for medicines?: No Do you have trouble getting transportation to medical appointments?: No Do you have trouble paying your heating and electricity bill?: No Do you have trouble taking care of your child, family member or friend?: No Do you have trouble with day-to-day activities such as bathing, preparing meals, shopping, managing finances, etc.?: No Are you currently unemployed and looking for a job?: No Are you interested in more education?: No Please select the resources that you would like help with: None Currently or been in a relationship where the following occur: No concerns reported THRIVE Score: 0 AUDIT C Alcohol Use Questionnaire (AUDIT-C) 1. How often do you have a drink containing alcohol?: Monthly or less 2. How many drinks containing alcohol do you have on a typical day when you are drinking?: 1 or 2 3. How often do you have six or more drinks on one occasion?: Monthly Total Score: 3 Score Reviewed/Action Taken: Yes KINGS-7 AMB Questionnaire KINGS-7 Date KINGS - 7 assessed: 03/21/24 Feeling nervous, anxious, or on edge: 0 = Not at all Not being able to stop or control worryin = Not at all Worrying too much about different things: 0 = Not at all Trouble relaxin = Not at all Being so restless that it is hard to sit still: 0 = Not at all Becoming easily annoyed or irritable: 0 = Not at all Feeling afraid as if something awful might happen: 0 = Not at all Total KINGS-7 score (0-4 normal; 5-9 mild; 10-14 moderate; 15-21 severe): 0 Source: Developed by Drs. Oswaldo Keith, Yeni Angeles, Issa Riley and colleagues, with an educational yris from [employer]. KINGS-7 Assessment Billing KINGS-7 Assessment Tool: KINGS-7 Assessment 85153 Physical exam (Primary Care) Vital Signs: Last Vital Signs Pulse 67 03/21/24 09:57 BP 112/70 03/21/24 09:57 Pulse Ox 97 03/21/24 09:57 Oxygen Delivery Method Room Air 03/21/24 09:57 BMI result Body Mass Index 36.6 Tobacco/Smoking Status: Tobacco use Status Tobacco use date assessed 09/19/23 03/21/24 10:00 Patient Tobacco Use Status Former Tobacco user 03/21/24 10:00 e-Cigarette/Vaping Use Currently Using 03/21/24 10:00 PHQ-9: PHQ-9 Score PHQ-9: Total score 0 03/21/24 10:27 Depression Screening Interpretation: Negative Thrive Assessment: Date of Thrive Assessment Date Thrive assessed 03/21/24 03/21/24 10:00 Currently or been in a relationship where the following occur: No concerns reported Immunizations pneumoc 20-charles conj-dip cr(PF) 0.5 mL IM syringe Performing Provider: BRIDGET Russo Performing Location: [facility] [place] [facility] Administered by: Jarred Aquino CMA on 03/21/24 10:44 Dose Route Admin Location Dispensed Lot Number Expiration Date [facility] [place] 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 0.5 mL IM Right Deltoid 0.5 mL [id number] 08/18/25 [employer] VIS Given Date VIS Provided VIS Publication Date 03/21/24 Single Vaccine 21 Eligibility Eligibility Date Funding Source Not [facility] Eligible 03/21/24 Private Coding Level of Care Code Est Pt Level 3 (34416) Diagnoses Newly diagnosed diabetes E11.9 Additional Codes KINGS-7 Assessment Billing - KINGS-7 Assessment Tool: KINGS-7 Assessment 10956 ([id number]) PHQ-9 - 41008 - PHQ-9 Billing: Yes ([id number]) Assessment & Plan Assessment & Plan (1) Newly diagnosed diabetes: Code(s): E11.9 - Type 2 diabetes mellitus without complications Category: Medical Plan . Orders: Orders UA CC w/rflx Micro + Cult Today E11.9 - Type 2 diabetes mellitus without complications Lipid Panel Today E11.9 - Type 2 diabetes mellitus without complications Microalbumin, Random (w Creat) Today E11.9 - Type 2 diabetes mellitus without complications Hemoglobin A1c Today E11.9 - Type 2 diabetes mellitus without complications Pneumococcal 20 Immunization Today Z23 - Encounter for immunization Complete Blood Count Auto Diff Today E11.9 - Type 2 diabetes mellitus without complications Comprehensive [place]. Panel Fast Today E11.9 - Type 2 diabetes mellitus without complications TSH reflex Free T4 Today E11.9 - Type 2 diabetes mellitus without complications Referrals Ophthalmology Referral E11.9 - Type 2 diabetes mellitus without complications
[2024-03-21 09:57] VITALS: BP 112/70; PULSE 67; O2SAT 97; BMI 36.6
== END 2024-03-21 10:44 | disposition home or self-care (01) ==
PROVIDERS: PCP Nurse Practitioner Family; Visit Provider Nurse Practitioner Family
DX: Z23 Encounter for immunization (principal); E11.9 Type 2 diabetes mellitus without complications

== ENCOUNTER → 2024-03-21 09:52 | Outpatient (BNVA) | payer OTHER, SELFPAY | PROVIDERS: PCP Nurse Practitioner Family; Visit Provider Nurse Practitioner Family | DX: Z23 Encounter for immunization (principal); E11.9 Type 2 diabetes mellitus without complications | CPT/HCPCS: 90471; 90677; 96127; 99212 ==

== ENCOUNTER 2024-03-25 13:33 | Outpatient (AMB) | payer OTHER, SELFPAY ==
--- NOTE | 2024-03-25 13:36 | A.OFFVIS_ITS ---
Intake Visit Reasons: PO LT knee ACL 02/21/24 NE Intake Note: Mandie is a 54 year old female who presents today for a post operative appointment s/p Left Knee ACL Reconstruction & Partial Medial Menisectomy 02/21/24. Patient reports that she is doing well with no concerns. Allergies Iodinated Contrast Media [IV CONTRAST] Allergy (Intermediate, Verified 03/21/24 10:24) HIVES azithromycin [From ZITHROMAX] Allergy (Unknown, Verified 03/21/24 10:24) RASH latex [LATEX] Allergy (Unknown, Verified 03/21/24 10:24) ITCHING levofloxacin [Levaquin] Allergy (Unknown, Verified 03/21/24 10:24) ? hives metronidazole Allergy (Unknown, Verified 03/21/24 10:24) ? hives penicillin G Allergy (Unknown, Verified 03/21/24 10:24) Anaphylaxis penicillin V Allergy (Unknown, Verified 03/21/24 10:24) Hives Penicillins [PENICILLINS] Allergy (Unknown, Verified 03/21/24 10:24) RASH sulfamethoxazole [From BACTRIM] Allergy (Unknown, Verified 03/21/24 10:24) RASH trimethoprim [From BACTRIM] Allergy (Unknown, Verified 03/21/24 10:24) RASH IV Dye Allergy (Unknown, Uncoded 03/21/24 10:24) Hives HPI HPI PO LT knee ACL 02/21/24 NE: Details: Mandie is a 54 year old female who presents today for a post operative appointment s/p Left Knee ACL Reconstruction & Partial Medial Menisectomy 02/21/24. Patient reports that she is doing well with no concerns. [facility] Medical History High cholesterol Depression Fibromyalgia Surgical History S/P tympanotomy with insertion of tube H/O removal of cyst History of back surgery Hx of appendectomy Family History Maternal Aunt Substance use disorder Maternal Uncle Substance use disorder Paternal Uncle Substance use disorder Paternal Aunt Substance use disorder Social History Housing: House Patient Tobacco Use Status: Former Tobacco user Cigarettes Per Day: 2 e-Cigarette/Vaping Use: Currently Using Second Hand Smoke Exposure: No Substance Use Type: Marijuana service: No Current occupational status: disabled Cognitive needs: No Hearing needs: No Vision needs: No Physical Exam Extrem Other: Well-healed incisions with stable Jane's and no effusion. 5 degree loss of terminal flexion and 3 degree loss of terminal extension. Assessment & Plan Assessment & Plan (1) S/P ACL reconstruction: Comment: Status post left ACL reconstruction with allograft and partial medial meniscectomy Code(s): Z98.890 - Other specified postprocedural states Category: Surgical Plan: Mandie is doing very well status post ACL reconstruction. Continue physical therapy and may discontinue brace unless out in public or in a environment which she can not control the external circumstances. See her back in 6 weeks. Coding Level of Care Code Global (32164) Diagnoses S/P ACL reconstruction Z98.890
== END 2024-03-25 15:36 | disposition home or self-care (01) ==
PROVIDERS: PCP Nurse Practitioner Family; Visit Provider Orthopaedic Surgery
DX: Z98.890 Other specified postprocedural states (principal)
CPT/HCPCS: 99024

== ENCOUNTER → 2024-03-25 13:33 | Outpatient (BNVA) | payer OTHER, SELFPAY | PROVIDERS: PCP Nurse Practitioner Family; Visit Provider Orthopaedic Surgery | DX: Z98.890 Other specified postprocedural states (principal) | CPT/HCPCS: 99212 ==

== ENCOUNTER 2024-06-03 14:51 | Outpatient (AMB) | payer OTHER, SELFPAY ==
[2024-06-03 14:55] VITALS: BMI 36.6
--- NOTE | 2024-06-03 14:55 | MHC.OFFVIS ---
Vital Signs 06/03/24 14:55 Height 5 ft 4 in Weight 213 lb BMI 36.6 Intake Visit Reasons: OV LT knee ACL 02/21/24 NE Intake Note: Mandie is a 54 year old female who presents today for a post operative appointment s/p Left Knee ACL Reconstruction & Partial Medial Menisectomy 02/21/24. At last visit patient was referred to PT and advised to wear brace as needed. Today patient reports she has completed PT sessions. She is no longer using the brace. Patient denies any pain or concerns. Allergies Iodinated Contrast Media [IV CONTRAST] Allergy (Intermediate, Verified 06/03/24 15:00) HIVES azithromycin [From ZITHROMAX] Allergy (Unknown, Verified 06/03/24 15:00) RASH latex [LATEX] Allergy (Unknown, Verified 06/03/24 15:00) ITCHING levofloxacin [Levaquin] Allergy (Unknown, Verified 06/03/24 15:00) ? hives metronidazole Allergy (Unknown, Verified 06/03/24 15:00) ? hives penicillin G Allergy (Unknown, Verified 06/03/24 15:00) Anaphylaxis penicillin V Allergy (Unknown, Verified 06/03/24 15:00) Hives Penicillins [PENICILLINS] Allergy (Unknown, Verified 06/03/24 15:00) RASH sulfamethoxazole [From BACTRIM] Allergy (Unknown, Verified 06/03/24 15:00) RASH trimethoprim [From BACTRIM] Allergy (Unknown, Verified 06/03/24 15:00) RASH IV Dye Allergy (Unknown, Uncoded 06/03/24 15:00) Hives HPI HPI OV LT knee ACL 02/21/24 NE: Details: Mandie is a 54 year old female who presents today for a post operative appointment s/p Left Knee ACL Reconstruction & Partial Medial Menisectomy 02/21/24. At last visit patient was referred to PT and advised to wear brace as needed. Today patient reports she has completed PT sessions. She is no longer using the brace. Patient denies any pain or concerns. [facility] Medical History High cholesterol Depression Fibromyalgia Surgical History S/P tympanotomy with insertion of tube H/O removal of cyst History of back surgery Hx of appendectomy Family History Maternal Aunt Substance use disorder Maternal Uncle Substance use disorder Paternal Uncle Substance use disorder Paternal Aunt Substance use disorder Social History Housing: House Patient Tobacco Use Status: Former Tobacco user Cigarettes Per Day: 2 e-Cigarette/Vaping Use: Currently Using Second Hand Smoke Exposure: No Substance Use Type: Marijuana service: No Current occupational status: disabled Cognitive needs: No Hearing needs: No Vision needs: No Physical Exam Vital Signs: BMI result Body Mass Index 36.6 Extrem Other: Full range of motion. Stable Jane's with firm endpoint. No pivot shift. Stable to varus and valgus stress. Normal gait. Assessment & Plan Assessment & Plan (1) Osteoarthritis of glenohumeral joint: Code(s): M19.019 - Primary osteoarthritis, unspecified shoulder Category: Medical Plan: Mandie has continued left shoulder pain. She has glenohumeral arthritis but also weakness on empty can testing and an MRI was ordered. She has done PT and it was not helpful. (2) S/P ACL reconstruction: Comment: Status post left ACL reconstruction with allograft and partial medial meniscectomy Code(s): Z98.890 - Other specified postprocedural states Category: Surgical Plan: Status post ACL reconstruction doing well. She is doing home PT now. I recommend strengthening and she will return to see her physical therapist for a home exercise program. I would like to see him back in 3 months. Orders: Orders MR shoulder LT wo con Today M19.019 - Primary osteoarthritis, unspecified shoulder Coding Level of Care Code Est Pt Level 3 (02135) Global (65689) Diagnoses Osteoarthritis of glenohumeral joint M19.019 S/P ACL reconstruction Z98.890
== END 2024-06-03 15:25 | disposition home or self-care (01) ==
LOC: HO.HOS 14:51
PROVIDERS: PCP Nurse Practitioner Family; Visit Provider Orthopaedic Surgery
DX: M19.019 Primary osteoarthritis, unspecified shoulder (principal); S83.512A Sprain of anterior cruciate ligament of left knee, initial encounter
CPT/HCPCS: 99213

== ENCOUNTER → 2024-06-03 14:51 | Outpatient (BNVA) | payer OTHER, SELFPAY | PROVIDERS: PCP Nurse Practitioner Family; Visit Provider Orthopaedic Surgery | DX: M19.012 Primary osteoarthritis, left shoulder (principal); Z98.890 Other specified postprocedural states | CPT/HCPCS: 99212 ==

== ENCOUNTER → 2024-06-25 11:31 | Outpatient (BNV) | payer OTHER, SELFPAY | PROVIDERS: PCP Nurse Practitioner Family; Visit Provider Radiology Diagnostic Radiology | DX: M19.012 Primary osteoarthritis, left shoulder (principal) | CPT/HCPCS: 73221 ==

== ENCOUNTER 2024-06-25 11:37 | Outpatient (REF) | payer OTHER, SELFPAY ==
--- NOTE | ~2024-06-25 | MR_ITS ---
CLINICAL HISTORY: M19.019 - Primary osteoarthritis, unspecified shoulder MR left shoulder without gadolinium Comparison: CR/SR - XR SHOULDER LT MIN 2V - 10/03/23 14:15 EDT Findings: Partial tear of the supraspinatus tendon at its insertion in the greater tuberosity. No full-thickness tear. Tendinosis of the subscapularis tendon. No acute fracture or pathologic bone lesion. Acromioclavicular and glenohumeral joint space narrowing. No joint effusion. Tear of the anterior inferior glenoid labrum. The long head of biceps is intact. IMPRESSION: 1. Partial supraspinatus tendon tear at its greater tuberosity insertion 2. Anterior inferior glenoid labral tear. This document has been electronically signed by: Daisy Santillan MD on 06/26/2024 02:30:29
== END 2024-06-25 11:38 | disposition home or self-care (01) ==
LOC: HO.MRI 11:37
PROVIDERS: PCP Nurse Practitioner Family; Visit Provider Orthopaedic Surgery
DX: M19.012 Primary osteoarthritis, left shoulder (principal)
CPT/HCPCS: 73221

== ENCOUNTER 2024-06-26 10:00 | Outpatient (RCR) | payer OTHER, SELFPAY ==
--- NOTE | 2024-06-04 07:11 | MHC.PT.OD ---
[facility] Welcome Office [place] Office [place] Office [address] Basim Scanlon [address] [phone] F: [phone] F: [phone] F: [phone] F: [phone] Physical Therapy Daily Note Diagnosis: Patient: Mandie Rosa LMR#: [id number] : 1970Acct:[id number] Age/Sex: 54 / F Loc: HO.SSS Attending Dr: Hugo Patel MD cc: Hugo Patel MD; Alen Casey [facility]-~ Operative Note Operative Note Date of Service: 02/21/24 Narrative: Date of Service: 02/21/24 Pre-op diagnosis: Left ACL tear Post-op diagnosis: other (1) same 2) left medial meniscus tear) Procedure: Left ACL reconstruction with allograft and partial medial meniscectomy Date of Surgery: 02/26/24 Date of Evaluation: 03/01/24 Date of Treatment: 05/07/24 Treatments to Date: Cancellations to Date: No Shows to Date: Authorized Visits: 12 Insurance End Date: Precautions/ Contraindications:history of bradycardia, history of L knee internal derangement Subjective: I feel that Im 99% better overall. Pt expressing her R knee is locking and catching her at times. Pt report Pain Score and Location: 2 L knee Objective Flowsheet: Tests & Measures AROM L knee 0 to 125 L knee supra 45 cm Jt line 40 cm Infra 35 cm Exercises Seat upright biked #2 progressive program level 3 x 10 minutes Review of HEP program to date including standing mini wall squats on wall, standing 4 way resisted hip, SLR into flexion ,seated HS stretch, gastroc stretch, program issued to date. Reassessment of ROM/strength/balance. Review of HEP program to date to discuss joint protection measures no forced end range flexion, no open chain knee ext Pt present without brace on her knee. IASTM over scar due to pulling reported inferior incision. Reviewed/educated re: CFM scar massage. HG #9 re: strumming over tibial incision. Pt verbalizes positive response. Discussed tapering to use of one crutch (use of R crutch as able). No pain with use of one crutch in the office, encouraged icing more often at home. Modalities Assessment: 05/07/24: is s/p L ACL reconstruction DOS 02/26/24 Left ACL reconstruction with allograft and partial medial meniscectomy. Pt reports she is doing well overall (was last seen in PT on 04/18/24). Pt is able to negotiate stairs reciprocally, reports improved confidence for walking ambulation and daily tasks. AROM 0 to 125 degrees. L SLS grossly >5 seconds similar to her R knee. She appears to have met goals with PT at this time. She has been completing scar massage and no longer is having discomfort at the site of her knee incision. She will be seeing Dr. Patel on 05/10/23 for follow up. She has been educated no running/jogging/jumping. Pt admits to jumping up when in stadium hockey seating, landing back down on her knee resulting in some pain. She was encouraged to start a low impact walking program and try to be more consistent with her strengthening program for both legs. She expresses some hyperext in her R knee and was educated to be mindful of not locking her knee in static standing. 04/18/24: Pt doing better in regard to her knee, improved AAROM. Fatigues with step-downs. Reports will be traveling to [facility] over the weekend, encouraged use of knee brace for this activity as environments are out of her control/stadium for hockey rink can be slippery. 04/16/24: Pt progressing with C, had some soreness with mini squat (advised <45 degrees small range), encouraged completion of passive knee extension stretch. Reiterated joint protection with use of knee brace for external circumstances/environments beyond her control. 04/11/24: Pt has attended 9 session of PT to date s/p Left ACL tear Post-op diagnosis: other (1) same 2) left medial meniscus tear) Procedure: Left ACL reconstruction with allograft and partial medial meniscectomy. Pt exhibits AAROM -5 to AAROM 114 degrees. Pt will benefit from ongoing PT at a frequency of 2x/week x 4 weeks to address impairments, implement HEP, and restore functional mobility tolerance to resume PLOF. Pt has DC use of knee brace but has been educated to continue to wear when in instances/environments she cannot control. Pt's knee brace was opened all the way for her (120 flexion). She is unable to negotiate stairs reciprocally at this time. She is not driving. She expresses fatigue when walking longer distances. She exhibits antalgic gait. Strength of her SLR is improving (can do without lag but lacks endurance with reps). Strength L quadriceps is improving. 04/09/24: Pt advised to continue to use knee brace when outside the home and when she is unable to control (per Dr. Patel). Pt noncompliant in following this recommendation, has not been seen in PT for 21 days due to car trouble. Pt reports overstretching her HS a few days ago under her table, increased sx medial HS insertion. AAROM -5 to 114. Reiterated recommendation to wear brace outside the home per Dr. Patel. Pt encouraged to perform passive knee ext stretch with icing as well *has not been doing and does not have full extension thisdate. 03/19/24: Opened brace to 60 degrees with good tolerance. Pt doing well overall. Pt SLR strength improving. Able to ambulate without crutches with good safety and support. 03/15/24: Pt presents to office with use of bilateral axillary crutches. States has been icing more. Still has three steri-strips remaining. 03/12/24; Pt AAROM -5 to 94, admits to tapering to use of one crutch on her own over the weekend. Knee slightly swollen, lost all steri-strips except for lower incision on tibia. Healing incision, pt advised to refrain from putting any ointment on it (patient asked about this). Pt encouraged to ice knee more (reports was doing less over the weekend). 03/07/24: Pt missed appt at 7am, was able to accommodated to be seen at 1:00pm. Pt doing well using crutch comfort cushion. Pt expressing some numbness/tingling in R plantar aspect of foot on/off. Pt is a 54 y/o female PMH significant for bradycardia, depression, referred to PT Post-op diagnosis: other (1) same 2) left medial meniscus tear) Procedure: Left ACL reconstruction with allograft and partial medial meniscectomy DOS 02/26/24. Pt exhibits -5 degrees extension to 70 flexion AAROM. Pt would benefit from attending skilled PT services at a frequency of 2x/week x 6 weeks to address impairments, implement HEP, and restore functional mobility to resume PLOF. Pt currently not driving, reports taking pain medication every 6 hours has been icing her knee every few hours. Pt reports history of fall after coming home from the hospital and had initial concern of how her brace was fitting which has since been addressed at her post op appt on 02/29/24 (no injury reported). PT Plan: See Dr. Patel, anticipate transition to I HEP for treatment of L knee. Short Term Goals: 1. AAROM L knee ext to -3 degrees. (-5 IR). 2. AAROM L knee flexion to 90 degrees (IR. AAROM flex 70 degrees). 3. Demonstrate good quad control with QS. (IR: fair activation no pain). 4. Pt will demonstrate reciprocal gait with use of axillary crutches WBAT (IR: noted to be toe touch day of eval, pt states she was told this-- therapist placed call to confirm weight-bearing status day of eval as not indicated on script). Mcc Goals: 1. AAROM L knee ext to 0 degrees. (-5 IR). 2. AAROM L knee flexion to 120 degrees. (IR AAROM flexion to 70). 3. Pt will demonstrate good control with SLR. 4. Wean from use of pieter brace for community ambulation when cleared by surgeon office. 5. Ascend/descend stairs reciprocally with good dynamic balance. Electronically signed by: Mireya Bal, PT, DPT
== END 2025-01-23 14:58 | disposition home or self-care (01) ==
LOC: HO.PTWFD 10:00
PROVIDERS: PCP Nurse Practitioner Family; Visit Provider Orthopaedic Surgery
DX: S83.512D Sprain of anterior cruciate ligament of left knee, subsequent encounter (principal); S83.204D Other tear of unspecified meniscus, current injury, left knee, subsequent encounter
CPT/HCPCS: 97110; 97116; 97140; 97161; 97162; 97164; 97535

== ENCOUNTER 2024-07-05 10:58 | Outpatient (AMB) | payer OTHER, SELFPAY ==
--- NOTE | 2024-07-05 11:03 | MHC.OFFVIS ---
Intake Visit Reasons: MRI review LT shoulder Intake Note: Mandie is a 54 year old right hand dominant female who presents today for an MRI review of her right shoulder. She has tried and failed PT. IMPRESSION: 1. Partial supraspinatus tendon tear at its greater tuberosity insertion 2. Anterior inferior glenoid labral tear. Allergies Iodinated Contrast Media [IV CONTRAST] Allergy (Intermediate, Verified 07/05/24 11:05) HIVES azithromycin [From ZITHROMAX] Allergy (Unknown, Verified 07/05/24 11:05) RASH latex [LATEX] Allergy (Unknown, Verified 07/05/24 11:05) ITCHING levofloxacin [Levaquin] Allergy (Unknown, Verified 07/05/24 11:05) ? hives metronidazole Allergy (Unknown, Verified 07/05/24 11:05) ? hives penicillin G Allergy (Unknown, Verified 07/05/24 11:05) Anaphylaxis penicillin V Allergy (Unknown, Verified 07/05/24 11:05) Hives Penicillins [PENICILLINS] Allergy (Unknown, Verified 07/05/24 11:05) RASH sulfamethoxazole [From BACTRIM] Allergy (Unknown, Verified 07/05/24 11:05) RASH trimethoprim [From BACTRIM] Allergy (Unknown, Verified 07/05/24 11:05) RASH IV Dye Allergy (Unknown, Uncoded 06/03/24 15:00) Hives HPI HPI MRI review LT shoulder: Details: Jerad is a 54-year-old woman with a 1+ year history of left shoulder pain. She has difficulty with daily activities. She has difficulty at night sleeping. She can not comfortably get her hand above her head. She also has popping when she goes to externally rotate quickly and this causes her tremendous pain. She had an MRI and is here today for review. She has had injections and physical therapy and has not improved. [facility] Medical History High cholesterol Depression Fibromyalgia Surgical History S/P tympanotomy with insertion of tube H/O removal of cyst History of back surgery Hx of appendectomy Family History Maternal Aunt Substance use disorder Maternal Uncle Substance use disorder Paternal Uncle Substance use disorder Paternal Aunt Substance use disorder Social History Housing: House Patient Tobacco Use Status: Former Tobacco user Cigarettes Per Day: 2 e-Cigarette/Vaping Use: Currently Using Second Hand Smoke Exposure: No Substance Use Type: Marijuana service: No Current occupational status: disabled Cognitive needs: No Hearing needs: No Vision needs: No Physical Exam Extrem Other: 90/140/30/S1 4+/5 empty can + O' Willis's Results Reviewed Results Reviewed: I personally reviewed the MR images. Partial tear of the supraspinatus tendon at its insertion in the greater tuberosity. No full-thickness tear. Tendinosis of the subscapularis tendon. No acute fracture or pathologic bone lesion. Acromioclavicular and glenohumeral joint space narrowing. No joint effusion. Tear of the anterior inferior glenoid labrum. The long head of biceps is intact. Assessment & Plan Assessment & Plan (1) Partial thickness rotator cuff tear: Code(s): M75.110 - Incomplete rotator cuff tear or rupture of unspecified shoulder, not specified as traumatic Category: Medical Plan: This is a 54-year-old woman with a partial-thickness rotator cuff tear in the setting of degenerative labral tear who has had ongoing left shoulder pain for over 1 year. This is been refractory to physical therapy and injections and I recommend left shoulder arthroscopy. I discussed the possibility of rotator cuff repair. I also discussed the possibility of biceps tenotomy and labral debridement. I discussed with her the procedure in detail. I explained the risks, benefits and alternatives including, but not limited to, the risk of incomplete symptom resolution, stiffness, infection, pain, need for further surgeries as well as medical complications associated with surgery. She expressed understanding and we will proceed forward accordingly. (2) Labral tear of shoulder, degenerative: Code(s): M24.119 - Other articular cartilage disorders, unspecified shoulder Category: Medical Plan: Coding Level of Care Code Est Pt Level 4 (71625) Diagnoses Partial thickness rotator cuff tear M75.110 Labral tear of shoulder, degenerative M24.119
== END 2024-07-05 11:40 | disposition home or self-care (01) ==
PROVIDERS: PCP Nurse Practitioner Family; Visit Provider Orthopaedic Surgery
DX: M75.112 Incomplete rotator cuff tear or rupture of left shoulder, not specified as traumatic (principal); M24.112 Other articular cartilage disorders, left shoulder
CPT/HCPCS: 99214

== ENCOUNTER → 2024-07-05 10:58 | Outpatient (BNVA) | payer OTHER, SELFPAY | PROVIDERS: PCP Nurse Practitioner Family; Visit Provider Orthopaedic Surgery | DX: M75.112 Incomplete rotator cuff tear or rupture of left shoulder, not specified as traumatic (principal); M24.112 Other articular cartilage disorders, left shoulder | CPT/HCPCS: 99212 ==

== ENCOUNTER 2024-08-22 10:19 | Outpatient (AMB) | payer OTHER, SELFPAY ==
--- NOTE | 2024-08-22 10:24 | MHC.OFFVIS ---
Vital Signs 08/22/24 10:38 Height 5 ft 4 in Weight 213 lb BMI 36.6 Handedness Right Intake Visit Reasons: Pre-Lt Shld 08/28/24 Intake Note: aMndie is a 54 year old right hand dominant female who presents today for a pre op appointment for her left shoulder 08/28/24. Allergies Iodinated Contrast Media [IV CONTRAST] Allergy (Intermediate, Verified 08/22/24 10:37) HIVES azithromycin [From ZITHROMAX] Allergy (Unknown, Verified 08/22/24 10:37) RASH latex [LATEX] Allergy (Unknown, Verified 08/22/24 10:37) ITCHING levofloxacin [Levaquin] Allergy (Unknown, Verified 08/22/24 10:37) ? hives metronidazole Allergy (Unknown, Verified 08/22/24 10:37) ? hives penicillin G Allergy (Unknown, Verified 08/22/24 10:37) Anaphylaxis penicillin V Allergy (Unknown, Verified 08/22/24 10:37) Hives Penicillins [PENICILLINS] Allergy (Unknown, Verified 08/22/24 10:37) RASH sulfamethoxazole [From BACTRIM] Allergy (Unknown, Verified 08/22/24 10:37) RASH trimethoprim [From BACTRIM] Allergy (Unknown, Verified 08/22/24 10:37) RASH IV Dye Allergy (Unknown, Uncoded 06/03/24 15:00) Hives HPI HPI Pre-Lt Shld 08/28/24: Details: Ms. Rosa is a 54-year-old right-hand dominant female who presents to the office today for her preoperative history and physical exam pending left shoulder arthroscopy for possible rotator cuff repair, possible labral debridement and possible biceps tenotomy. Patient has a past medical history significant for diabetes. However, the last A1c was 6.2 on 02/07/2024. [facility] Medical History (Updated 08/14/24 @ 11:42 by Helene Morrell RN) Marijuana use Arthritis Diabetes IBS (irritable bowel syndrome) High cholesterol Depression Fibromyalgia Surgical History (Updated 08/14/24 @ 11:17 by Helene Morrell RN) H/O colonoscopy Hx of left knee surgery S/P tympanotomy with insertion of tube H/O removal of cyst History of back surgery Hx of appendectomy Family History Maternal Aunt Substance use disorder Maternal Uncle Substance use disorder Paternal Uncle Substance use disorder Paternal Aunt Substance use disorder Social History (Updated 08/22/24 @ 10:38 by Jared Bauer) Housing: House Housing Other:: mobil home Are you a primary women's health care nurse practitioner to a significant other at home: No Do you presently have visiting nurse or other home services: No Patient Tobacco Use Status: Former Tobacco user Cigarettes Per Day: 2 e-Cigarette/Vaping Use: Currently Using Second Hand Smoke Exposure: No Substance Use Type: Marijuana service: No Current occupational status: disabled Current occupation: right hand dominant Cognitive needs: No Hearing needs: No Vision needs: No Physical Exam Vital Signs: BMI result Body Mass Index 36.6 Extrem Other: 90/140/30/S1 4+/5 empty can + O' Willis's Assessment & Plan Assessment & Plan (1) Partial thickness rotator cuff tear: Code(s): M75.110 - Incomplete rotator cuff tear or rupture of unspecified shoulder, not specified as traumatic Category: Medical (2) Labral tear of shoulder, degenerative: Code(s): M24.119 - Other articular cartilage disorders, unspecified shoulder Category: Medical Plan Ms. Rosa is a 54-year-old right-hand dominant female who presents to the office today for her preoperative history and physical exam pending left shoulder arthroscopy for possible rotator cuff repair, possible labral debridement and possible biceps tenotomy. Patient has a past medical history significant for diabetes. However, the last A1c was 6.2 on 02/07/2024. On the office today, patient was fit for an UltraSling off the shelf. I discussed in detail the procedure and what to expect pre and post operatively. We discussed the risks, benefits and alternatives to the surgery as well as the rehabilitation course. The risks; which include, but are not limited to infection, bleeding, nerve injury, ongoing pain, swelling, and stiffness, perioperative risk of injury to bones and soft tissues, and blood clots. Post operative medications were sent to the pharmacy[facility] while in the office today. The patient was instructed that he/she should obtain the prescription prior to surgery but should not consume until after the procedure; as these should only be taken for postoperative pain management. Should the patient take these medications before surgery, a refill will not be sent to the pharmacy until their scheduled refill date. oxycodone-acetaminophen 5-325 mg (Percocet) PO Q4-6H PRN, quantity 42 tabs for 7 days and morphine ER 15 mg (MS Contin) PO Q12H PRN, quantity 6 tabs for 3 days I?ve answered all questions and with their understanding they have consented to move forward with left shoulder arthroscopy with possible rotator cuff repair, possible biceps tenotomy and possible labral debridement. Medications: New morphine ER (MS Contin) Partial Fill upon patient request. 15 mg PO Q12H 3 days 6 tabs 0RF oxycodone-acetaminophen 5-325 mg Partial Fill upon patient request. 1 tab PO Q4-6H 7 days PRN 42 tabs 0RF pain Coding Level of Care Code Global (90069) Diagnoses Partial thickness rotator cuff tear M75.110 Labral tear of shoulder, degenerative M24.119
[2024-08-22 10:38] VITALS: BMI 36.6
== END 2024-08-22 10:51 | disposition home or self-care (01) ==
LOC: HO.HOS 10:20
PROVIDERS: PCP Nurse Practitioner Family; Visit Provider Physician Assistant
DX: M75.112 Incomplete rotator cuff tear or rupture of left shoulder, not specified as traumatic (principal); M24.112 Other articular cartilage disorders, left shoulder
CPT/HCPCS: 99024

== ENCOUNTER → 2024-08-22 10:19 | Outpatient (BNVA) | payer OTHER, SELFPAY | PROVIDERS: PCP Nurse Practitioner Family; Visit Provider Physician Assistant | DX: Z01.818 Encounter for other preprocedural examination (principal); M75.112 Incomplete rotator cuff tear or rupture of left shoulder, not specified as traumatic; M24.112 Other articular cartilage disorders, left shoulder | CPT/HCPCS: 99212 ==

== ENCOUNTER 2024-08-28 08:51 | Day surgery (SDC) | payer OTHER, SELFPAY ==
[2024-08-14 11:36] VITALS: BMI 35.2
[2024-08-28 11:27] VITALS: BP 120/87; PULSE 66; RESP 14; TEMP 37.2; O2SAT 95; BMI 35.2
[2024-08-28] MEDS: Lactated Ringers 1,000 ML 100 ML IVCONT (12:33)
--- NOTE | 2024-08-28 12:51 | P.CONAN_ITS ---
Documented by User: Malissa Villeda NP 08/15/24 12:35 HPI - Anesthesia Eval Consult details Narrative: 54yo F for Left?Shoulder Arthroscopy, (labral tear), 08/28/24 s/p ACL repair 01/2024 with LMA 4 PMFSH Active Problems Active Problems: All Active Problems Labral tear of shoulder, degenerative (Acute) Partial thickness rotator cuff tear (Acute) S/P ACL reconstruction (Acute) Pre-op evaluation (Acute) ACL (anterior cruciate ligament) rupture (Acute) Complex tear of meniscus of left knee (Acute) HTN (hypertension) (Acute) Newly diagnosed diabetes (Acute) Osteoarthritis of glenohumeral joint (Acute) Left knee injury (Acute) Swelling of knee joint, left (Acute) Knee pain, left (Acute) Left shoulder pain (Acute) Screening for cervical cancer (Acute) Elevated liver enzymes (Acute) Physical exam (Acute) Screening for colon cancer (Acute) Bloody nose (Acute) Heel pain, bilateral (Acute) Past Medical History Medical History (Updated 08/14/24 @ 11:42 by Helene Morrell RN) Marijuana use Arthritis Diabetes IBS (irritable bowel syndrome) High cholesterol Depression Fibromyalgia Family History Family History Maternal Aunt Substance use disorder Maternal Uncle Substance use disorder Paternal Uncle Substance use disorder Paternal Aunt Substance use disorder Surgical History Surgical History (Updated 08/14/24 @ 11:17 by Helene Morrell RN) H/O colonoscopy Hx of left knee surgery S/P tympanotomy with insertion of tube H/O removal of cyst History of back surgery Hx of appendectomy History of Problems with Anesthesia: No Social History Social History (Updated 08/22/24 @ 10:38 by Jared Bauer) Housing: House Housing Other:: mobil home Are you a primary respiratory care instructor to a significant other at home: No Do you presently have visiting nurse or other home services: No Patient Tobacco Use Status: Former Tobacco user Cigarettes Per Day: 2 e-Cigarette/Vaping Use: Currently Using Second Hand Smoke Exposure: No Use of substances other than those prescribed or required for medical reasons: Yes Substance Use Type: Marijuana Substance Use Frequency: Weekly Have you been hit, kicked, punched, or otherwise hurt by someone within the past year? If so, by whom?: No Are you DNR?: No Advance Directives: No Advance Directives Information Provided: Yes Advance Directives on File: No Patient : No : No Poor oral hygiene: Yes service: No Current occupational status: disabled Current occupation: right hand dominant Cognitive needs: No Hearing needs: No Vision needs: No Meds Allergies Allergy/AdvReac Type Severity Reaction Status Date / Time Iodinated Contrast Media Allergy Intermediate HIVES Verified 08/28/24 11:18 [IV CONTRAST] azithromycin [From ZITHROMAX] Allergy Unknown RASH Verified 08/28/24 11:18 latex [LATEX] Allergy Unknown ITCHING Verified 08/28/24 11:18 levofloxacin [Levaquin] Allergy Unknown ? hives Verified 08/28/24 11:18 metronidazole Allergy Unknown ? hives Verified 08/28/24 11:18 penicillin G Allergy Unknown Anaphylaxis Verified 08/28/24 11:18 penicillin V Allergy Unknown Hives Verified 08/28/24 11:18 Penicillins [PENICILLINS] Allergy Unknown RASH Verified 08/28/24 11:18 sulfamethoxazole Allergy Unknown RASH Verified 08/28/24 11:18 [From BACTRIM] trimethoprim [From BACTRIM] Allergy Unknown RASH Verified 08/28/24 11:18 IV Dye Allergy Unknown Hives Uncoded 08/28/24 11:18 Home Medications ?Medication ?Instructions ?Recorded ?Confirmed ?Last Taken ?Type citalopram 20 mg tablet 20 mg PO BEDTIME 08/14/24 08/28/24 Unknown History Exam Height,Weight and Vital Signs: Height 5 ft 4 in Weight 92.986 kg Pertinent Lab Results Pertinent Lab Results: Laboratory Tests 02/07/24 09:57 WBC 6.3 Hgb 13.4 Hct 40.3 Plt Count 300 Sodium 143 Potassium 4.0 Chloride 109 H Carbon Dioxide 27 BUN 14 Creatinine 0.72 Laboratory Tests 02/07/24 09:57 Hemoglobin A1c % 6.2 H Narrative Narrative: EKG 01/2024 Vent. Rate : 056 BPM Atrial Rate : 056 BPM P-R Int : 176 ms QRS Dur : 072 ms QT Int : 414 ms P-R-T Axes : 055 036 062 degrees QTc Int : 399 ms Sinus bradycardia Low voltage QRS Borderline ECG When compared with ECG of 21-DEC-2023 13:26, No significant change was found Assessment and Plan Assessment Anesthesia Assessment: Chart Reviewed Final Anesthetic Review History of Problems with Anesthesia: No Documented by User: Ling Dorsey DO 08/28/24 12:52 PMFSH Past Medical History Medical History (Updated 08/14/24 @ 11:42 by Helene Morrell RN) Marijuana use Arthritis Diabetes IBS (irritable bowel syndrome) High cholesterol Depression Fibromyalgia Family History Family History Maternal Aunt Substance use disorder Maternal Uncle Substance use disorder Paternal Uncle Substance use disorder Paternal Aunt Substance use disorder Family history of problems with anesthesia: No Surgical History Surgical History (Updated 08/14/24 @ 11:17 by Helene Morrell RN) H/O colonoscopy Hx of left knee surgery S/P tympanotomy with insertion of tube H/O removal of cyst History of back surgery Hx of appendectomy History of Problems with Anesthesia: No Social History Social History (Updated 08/22/24 @ 10:38 by Jared Bauer) Housing: House Housing Other:: [employer] home Are you a primary respiratory care instructor to a significant other at home: No Do you presently have visiting nurse or other home services: No Patient Tobacco Use Status: Former Tobacco user Cigarettes Per Day: 2 e-Cigarette/Vaping Use: Currently Using Second Hand Smoke Exposure: No Use of substances other than those prescribed or required for medical reasons: Yes Substance Use Type: Marijuana Substance Use Frequency: Weekly Have you been hit, kicked, punched, or otherwise hurt by someone within the past year? If so, by whom?: No Are you DNR?: No Advance Directives: No Advance Directives Information Provided: Yes Advance Directives on File: No Patient : No : No Poor oral hygiene: Yes service: No Current occupational status: disabled Current occupation: right hand dominant Cognitive needs: No Hearing needs: No Vision needs: No Meds Allergies Allergy/AdvReac Type Severity Reaction Status Date / Time Iodinated Contrast Media Allergy Intermediate HIVES Verified 08/28/24 11:18 [IV CONTRAST] azithromycin [From ZITHROMAX] Allergy Unknown RASH Verified 08/28/24 11:18 latex [LATEX] Allergy Unknown ITCHING Verified 08/28/24 11:18 levofloxacin [Levaquin] Allergy Unknown ? hives Verified 08/28/24 11:18 metronidazole Allergy Unknown ? hives Verified 08/28/24 11:18 penicillin G Allergy Unknown Anaphylaxis Verified 08/28/24 11:18 penicillin V Allergy Unknown Hives Verified 08/28/24 11:18 Penicillins [PENICILLINS] Allergy Unknown RASH Verified 08/28/24 11:18 sulfamethoxazole Allergy Unknown RASH Verified 08/28/24 11:18 [From BACTRIM] trimethoprim [From BACTRIM] Allergy Unknown RASH Verified 08/28/24 11:18 IV Dye Allergy Unknown Hives Uncoded 08/28/24 11:18 Home Medications ?Medication ?Instructions ?Recorded ?Confirmed ?Last Taken ?Type citalopram 20 mg tablet 20 mg PO BEDTIME 08/14/24 08/28/24 Unknown History Exam Exam Date and Time: 08/28/24 1245 Height,Weight and Vital Signs: Height 5 ft 4 in Weight 92.986 kg Vital Signs Temperature 99.0 F 08/28/24 11:27 Pulse Rate 66 08/28/24 11:27 Respiratory Rate 14 08/28/24 11:27 Blood Pressure 120/87 08/28/24 11:27 Pulse Oximetry 95 08/28/24 11:27 Oxygen Delivery Method Room Air 08/28/24 11:27 Temperature 99.0 F 08/28/24 11:27 Pulse Rate 66 08/28/24 11:27 Respiratory Rate 14 08/28/24 11:27 Blood Pressure 120/87 08/28/24 11:27 Pulse Oximetry 95 08/28/24 11:27 Oxygen Delivery Method Room Air 08/28/24 11:27 Airway Mallampati Class: II TM Dist: >3cm Loose/Missing/Broken Teeth: Yes (partials removed; no loose or broken teeth) Heart: S1S2 Lungs: CTAB Assessment and Plan Assessment Anesthesia Assessment: Anesthesia Plan Discussed and Chart Reviewed Final Anesthetic Review Family History of Problems with Anesthesia: No History of Problems with Anesthesia: No NPO: Yes ASA Class: II Final Preanesthetic Review: No Changes in Pt Med Stat, Meds/Allgs Chart Reviewed, Consent Obtained/Reviewed and Anes Risks/Benef Reviewed Patient Risk: Low Procedure Risk: Intermediate Anesthetic Plan Anesthetic Plan: GA, Regional Block (left brachial plexus block) and Agree w/ Assess. and Plan Disposition: Standard PACU
--- NOTE | 2024-08-28 13:39 | MHC.SHP ---
Pre-Procedural Eval Section A - 24 Hr Update-Section A only Date of Service: 08/28/24 The patient is an INPATIENT: No Changes since office visit: No Cold of Flu in the past 2 weeks, No New Medical Problems, No Changes in Medication and No Patient answered all questions The patient has been examined within 24 hours of the surgical procedure. The History & Physical has been completed within 30 days and I have reviewed it.: Yes Section B - Complete if H&P > 30 days Chief Complaint: Strain of muscle(s) and tendon(s),cartilage Allergies: Allergies Allergy/AdvReac Type Severity Reaction Status Date / Time Iodinated Contrast Media Allergy Intermediate HIVES Verified 08/28/24 11:18 [IV CONTRAST] azithromycin [From ZITHROMAX] Allergy Unknown RASH Verified 08/28/24 11:18 latex [LATEX] Allergy Unknown ITCHING Verified 08/28/24 11:18 levofloxacin [Levaquin] Allergy Unknown ? hives Verified 08/28/24 11:18 metronidazole Allergy Unknown ? hives Verified 08/28/24 11:18 penicillin G Allergy Unknown Anaphylaxis Verified 08/28/24 11:18 penicillin V Allergy Unknown Hives Verified 08/28/24 11:18 Penicillins [PENICILLINS] Allergy Unknown RASH Verified 08/28/24 11:18 sulfamethoxazole Allergy Unknown RASH Verified 08/28/24 11:18 [From BACTRIM] trimethoprim [From BACTRIM] Allergy Unknown RASH Verified 08/28/24 11:18 IV Dye Allergy Unknown Hives Uncoded 08/28/24 11:18 Plan I have reviewed the history and physical and performed a pertinent physical examination on my patient. No changes have occurred unless specified. Time Spent With Patient Time: Total time managing care of this patient today ____ minutes.
[2024-08-28] MEDS: Clindamycin Phosphate/D5W 900 MG/50 ML PIGGYBACK 50 MG IV (14:11)
[2024-08-28] MEDS: Acetaminophen 1,000 MG/100 ML PIGGYBACK 400 MG IV (14:50)
[2024-08-28 15:13] VITALS: BP 127/81; PULSE 68; RESP 18; TEMP 36.4; O2SAT 99
[2024-08-28 15:18] VITALS: BP 132/55; PULSE 52; RESP 18; O2SAT 95
[2024-08-28 15:23] VITALS: BP 134/75; PULSE 69; RESP 20; O2SAT 95
[2024-08-28 15:28] VITALS: BP 133/72; PULSE 51; RESP 18; O2SAT 95
--- NOTE | 2024-08-28 15:38 | PM.OP ---
Brief Operative Note Date of Service: 08/28/24 Pre-op diagnosis: left shoulder arthritis Post-op diagnosis: other (1) same 2) loose body 3) partial thickness rtc tear) Procedure: Left shoulder RTC repair with removal of loose body, chondroplasty Implants: Large Regeneten collagen bio inductive implant, Rico and Nephew Surgeon: Hugo Patel MD Anesthesia: GETA and regional Was an Long Chain Quiller Tender used for this Procedure?: Yes Long Chain Quiller Tender: Opal Amaro Estimated blood loss (mL): 25 IV fluids (mL): 750 Pathology: none sent Condition: stable Disposition: PACU
--- NOTE | 2024-08-28 15:40 | W.PM.OPN ---
Operative Note Operative Note Date of Service: 08/28/24 Narrative: Date of Service: 08/28/24 Pre-op diagnosis: left shoulder arthritis Post-op diagnosis: other (1) same 2) loose body 3) partial thickness rtc tear) Procedure: Left shoulder RTC repair with removal of loose body, chondroplasty Implants: Large Regeneten collagen bio inductive implant, Rico [employer] Nephew Surgeon: Hugo Patel MD Anesthesia: GETA and regional Was an Senior Controls Engineer used for this Procedure?: Yes Senior Controls Engineer: Opal Amaro Estimated blood loss (mL): 25 IV fluids (mL): 750 Pathology: none sent Condition: stable Disposition: PACU Procedure in detail: Patient was brought to the operating room and placed the the beach chair position. All bony prominences were well padded and the limb was prepped and draped in standard sterile fashion. A time out was called to identify proper site, proper procedure and proper surgeon. IV antibiotics per weight were administered. I began by making a posterolateral stab incision with a 15 blade. A blunt trochar was placed into the glenohumeral joint and I insufflated the joint with saline and a 30 degree arthroscope was placed. I established an outside- in anterior portal just distal to the biceps tendon. I then began my inspection of the glenohumeral joint. The anterior 50 % of the glenoid was eburnated. There was a ossified anterior labrum vs old bony bankart that was also eburnated. The subscapularis was intact. There was a large loose body in the anterior-inferior recess. I used a grasper to remove this. I then debrided the loose cartilaginous tissue and loose tissue of the anterior labrum. I debrided the anterior interval. The subscapularis was intact. There was a small undersurface rotator cuff tear. This was just posterior to the biceps tendon. The biceps tendon was intact and there was no SLAP tear. I debrided the labrum circumferentially. There were large posterior osteophytes on the humeral head consistent with prior traumatic dislocation. Once I was satisfied with the intra-articular portion of the surgery I removed the trochar and entered the subacromial space. A direct lateral portal was then established and I performed a bursectomy. The cuff was then examined. the cuff was largely normal with some fraying over the supraspinatus. The this in conjunction with the undersurface articular sided tear I elected to place a large Regeneten bio inductive implant over the supraspinatus. Given her osteoarthritis I was hesitant to engage in a full rotator cuff tear and this would have required a significant take down of healthy-appearing tissue. Therefore I established a 2nd direct lateral portal and placed the large collagen implant through this. I used 8 peek zoltan to tack this down to the supraspinatus and infraspinatus posteriorly. Care was taken to not lay this over the top of the biceps tendon. A subacromial decompression was not neccessary. Once I was satisfied with the implant placement final images were captured and I removed all instrumentation. Portals were closed with nylon. Patient was placed in an abduction sling, extubated and brought to the recovery room in stable condition. There were no known complications.
[2024-08-28 15:43] VITALS: BP 144/82; PULSE 50; RESP 18; TEMP 36.3; O2SAT 94
== END 2024-08-28 16:08 | disposition home or self-care (01) ==
LOC: HO.SSS 08:52
PROVIDERS: PCP Nurse Practitioner Family; Visit Provider Orthopaedic Surgery
PROC: (CPT 29805; principal; 2024-08-28 11:50)
DX: M75.112 Incomplete rotator cuff tear or rupture of left shoulder, not specified as traumatic (principal); M24.112 Other articular cartilage disorders, left shoulder; M19.012 Primary osteoarthritis, left shoulder; M24.012 Loose body in left shoulder; M25.512 Pain in left shoulder; M79.7 Fibromyalgia; E78.00 Pure hypercholesterolemia, unspecified; F32.A Depression, unspecified; Z79.899 Other long term (current) drug therapy; Z91.040 Latex allergy status; Z91.041 Radiographic dye allergy status; Z88.0 Allergy status to penicillin; Z88.1 Allergy status to other antibiotic agents; Z88.2 Allergy status to sulfonamides; Z88.8 Allergy status to other drugs, medicaments and biological substances; Z98.890 Other specified postprocedural states; Z87.891 Personal history of nicotine dependence
CPT/HCPCS: 29827; 29819; 29822; C1713; C1763; J0131; J0171; J0736; J1100; J2003; J2250; J2405; J2704; J2795; J3010

== ENCOUNTER → 2024-08-28 08:51 | Outpatient (BNV) | payer OTHER, SELFPAY | PROVIDERS: PCP Nurse Practitioner Family; Visit Provider Orthopaedic Surgery | DX: M75.112 Incomplete rotator cuff tear or rupture of left shoulder, not specified as traumatic (principal); M24.012 Loose body in left shoulder | CPT/HCPCS: 29819; 29827 ==

== ENCOUNTER 2024-08-29 10:15 | Outpatient (AMB) | payer OTHER, SELFPAY ==
--- NOTE | 2024-08-29 10:17 | MHC.OFFVIS ---
Intake Visit Reasons: Brace Fitting Intake Note: Patient is a 54-year-old female who presents to the office today status post left shoulder rotator cuff repair with collagen patch, removal of loose body and chondroplasty on 08/28/[address] Patel. She reports that the sling is not fitting properly and would like it to be readjusted. Allergies Iodinated Contrast Media [IV CONTRAST] Allergy (Intermediate, Verified 08/28/24 11:18) HIVES azithromycin [From ZITHROMAX] Allergy (Unknown, Verified 08/28/24 11:18) RASH latex [LATEX] Allergy (Unknown, Verified 08/28/24 11:18) ITCHING levofloxacin [Levaquin] Allergy (Unknown, Verified 08/28/24 11:18) ? hives metronidazole Allergy (Unknown, Verified 08/28/24 11:18) ? hives penicillin G Allergy (Unknown, Verified 08/28/24 11:18) Anaphylaxis penicillin V Allergy (Unknown, Verified 08/28/24 11:18) Hives Penicillins [PENICILLINS] Allergy (Unknown, Verified 08/28/24 11:18) RASH sulfamethoxazole [From BACTRIM] Allergy (Unknown, Verified 08/28/24 11:18) RASH trimethoprim [From BACTRIM] Allergy (Unknown, Verified 08/28/24 11:18) RASH IV Dye Allergy (Unknown, Uncoded 08/28/24 11:18) Hives HPI HPI Brace Fitting: Details: Patient is a 54-year-old female who presents to the office today status post left shoulder rotator cuff repair with collagen patch, removal of loose body and chondroplasty on 08/28/[address] Patel. She reports that the sling is not fitting properly and would like it to be readjusted. [facility] Medical History (Updated 08/14/24 @ 11:42 by Helene Morrell RN) Marijuana use Arthritis Diabetes IBS (irritable bowel syndrome) High cholesterol Depression Fibromyalgia Surgical History (Updated 08/14/24 @ 11:17 by Helene Morrell RN) H/O colonoscopy Hx of left knee surgery S/P tympanotomy with insertion of tube H/O removal of cyst History of back surgery Hx of appendectomy Family History Maternal Aunt Substance use disorder Maternal Uncle Substance use disorder Paternal Uncle Substance use disorder Paternal Aunt Substance use disorder Social History (Updated 08/22/24 @ 10:38 by Jared Bauer) Housing: House Housing Other:: [employer] home Are you a primary child care leader to a significant other at home: No Do you presently have visiting nurse or other home services: No Comment: COUNTS CORRECT Patient Tobacco Use Status: Former Tobacco user Cigarettes Per Day: 2 e-Cigarette/Vaping Use: Currently Using Second Hand Smoke Exposure: No Substance Use Type: Marijuana service: No Current occupational status: disabled Current occupation: right hand dominant Cognitive needs: No Hearing needs: No Vision needs: No Review of Systems Const All systems reviewed & are unremarkable except as noted in HPI and below Physical Exam Const General: cooperative, healthy appearing and no acute distress Extrem Other: Left shoulder dressing is clean dry and intact. Assessment & Plan Assessment & Plan (1) Partial thickness rotator cuff tear: Code(s): M75.110 - Incomplete rotator cuff tear or rupture of unspecified shoulder, not specified as traumatic Category: Medical Plan Patient is a 54-year-old female who presents to the office today status post left shoulder rotator cuff repair with collagen patch, removal of loose body and chondroplasty on 08/28/[address] Patel. She reports that the sling is not fitting properly and would like it to be readjusted. On the opposite side, the patient's UltraSling was readjusted to proper fit and position. She will follow up at her regularly scheduled follow-up appointment, sooner if needed. Coding Level of Care Code Global (82030) Diagnoses Partial thickness rotator cuff tear M75.110
== END 2024-08-29 10:34 | disposition home or self-care (01) ==
LOC: HO.HOS 10:16
PROVIDERS: PCP Nurse Practitioner Family; Visit Provider Physician Assistant
DX: M75.112 Incomplete rotator cuff tear or rupture of left shoulder, not specified as traumatic (principal)
CPT/HCPCS: 99024

== ENCOUNTER → 2024-08-29 10:15 | Outpatient (BNVA) | payer OTHER, SELFPAY | PROVIDERS: PCP Nurse Practitioner Family; Visit Provider Physician Assistant | DX: Z47.89 Encounter for other orthopedic aftercare (principal) | CPT/HCPCS: 99212 ==

== ENCOUNTER 2024-09-02 09:44 | Outpatient (AMB) | payer OTHER, SELFPAY ==
--- NOTE | 2024-09-02 09:46 | MHC.OFFVIS ---
Vital Signs 09/02/24 09:59 Height 5 ft 4 in Weight 202 lb BMI 34.7 Intake Visit Reasons: PO-Lt Shld 08/28/24 NE Intake Note: Mandie is a 54 year old female who presents today postoperatively after undergoing a left shoulder , DOS 08/28/[address] Patel. Patient reports she is doing well, has some soreness and has been doing her pendulums exercises. Allergies Iodinated Contrast Media [IV CONTRAST] Allergy (Intermediate, Verified 09/02/24 09:58) HIVES azithromycin [From ZITHROMAX] Allergy (Unknown, Verified 09/02/24 09:58) RASH latex [LATEX] Allergy (Unknown, Verified 09/02/24 09:58) ITCHING levofloxacin [Levaquin] Allergy (Unknown, Verified 09/02/24 09:58) ? hives metronidazole Allergy (Unknown, Verified 09/02/24 09:58) ? hives penicillin G Allergy (Unknown, Verified 09/02/24 09:58) Anaphylaxis penicillin V Allergy (Unknown, Verified 09/02/24 09:58) Hives Penicillins [PENICILLINS] Allergy (Unknown, Verified 09/02/24 09:58) RASH sulfamethoxazole [From BACTRIM] Allergy (Unknown, Verified 09/02/24 09:58) RASH trimethoprim [From BACTRIM] Allergy (Unknown, Verified 09/02/24 09:58) RASH IV Dye Allergy (Unknown, Uncoded 09/02/24 09:58) Hives HPI HPI PO-Lt Shld 08/28/24 NE: Details: 54-year-old female returns to the office today status post left shoulder arthroscopy with collagen graft. Patient continues to wear her sling and begin physical therapy this week. She is tolerating pain well but continues to take the oxycodone medication. She has no other concerns today. [facility] Medical History (Updated 08/14/24 @ 11:42 by Helene Morrell RN) Marijuana use Arthritis Diabetes IBS (irritable bowel syndrome) High cholesterol Depression Fibromyalgia Surgical History (Updated 08/14/24 @ 11:17 by Helene Morrell RN) H/O colonoscopy Hx of left knee surgery S/P tympanotomy with insertion of tube H/O removal of cyst History of back surgery Hx of appendectomy Family History Maternal Aunt Substance use disorder Maternal Uncle Substance use disorder Paternal Uncle Substance use disorder Paternal Aunt Substance use disorder Social History (Updated 08/22/24 @ 10:38 by Jared Bauer) Housing: House Housing Other:: [employer] home Are you a primary director of health care marketing to a significant other at home: No Do you presently have visiting nurse or other home services: No Comment: COUNTS CORRECT Patient Tobacco Use Status: Former Tobacco user Cigarettes Per Day: 2 e-Cigarette/Vaping Use: Currently Using Second Hand Smoke Exposure: No Substance Use Type: Marijuana service: No Current occupational status: disabled Current occupation: right hand dominant Cognitive needs: No Hearing needs: No Vision needs: No Review of Systems Const All systems reviewed & are unremarkable except as noted in HPI and below Physical Exam Vital Signs: BMI result Body Mass Index 34.7 Extrem Other: Left shoulder incision clean dry and intact. No erythema. Neurovascularly intact. Results Reviewed Results Reviewed: Date of Service: 08/28/24 Narrative: Date of Service: 08/28/24 Pre-op diagnosis: left shoulder arthritis Post-op diagnosis: other (1) same 2) loose body 3) partial thickness rtc tear) Procedure: Left shoulder RTC repair with removal of loose body, chondroplasty Implants: Large Regeneten collagen bio inductive implant, Rico [employer] Nephew Surgeon: Hugo Patel MD Assessment & Plan Assessment & Plan (1) Labral tear of shoulder, degenerative: Code(s): M24.119 - Other articular cartilage disorders, unspecified shoulder Category: Medical (2) Partial thickness rotator cuff tear: Code(s): M75.110 - Incomplete rotator cuff tear or rupture of unspecified shoulder, not specified as traumatic Category: Medical Plan Sutures removed today Steri-Strips applied. She will continue to use the sling for comfort and when she is in an uncontrolled environment. She can remove the sling for exercises. She will begin physical therapy to work on range of motion and periscapular stabilization. Progress to strengthening. She will see us back in 4-6 weeks for routine follow up, sooner if needed. Medications: Refilled oxycodone-acetaminophen 5-325 mg Partial Fill upon patient request. 1 tab PO Q4-6H PRN 42 tabs 0RF pain 7 days Coding Level of Care Code Global (47363) Diagnoses Labral tear of shoulder, degenerative M24.119 Partial thickness rotator cuff tear M75.110
[2024-09-02 09:59] VITALS: BMI 34.7
== END 2024-09-02 10:19 | disposition home or self-care (01) ==
LOC: HO.HOS 09:45
PROVIDERS: PCP Nurse Practitioner Family; Visit Provider Physician Assistant
DX: M24.119 Other articular cartilage disorders, unspecified shoulder (principal); M75.110 Incomplete rotator cuff tear or rupture of unspecified shoulder, not specified as traumatic
CPT/HCPCS: 99024

== ENCOUNTER → 2024-09-02 09:44 | Outpatient (BNVA) | payer OTHER, SELFPAY | PROVIDERS: PCP Nurse Practitioner Family; Visit Provider Physician Assistant | DX: Z47.89 Encounter for other orthopedic aftercare (principal); M24.119 Other articular cartilage disorders, unspecified shoulder; M75.110 Incomplete rotator cuff tear or rupture of unspecified shoulder, not specified as traumatic; Z98.890 Other specified postprocedural states | CPT/HCPCS: 99212 ==

== ENCOUNTER 2024-10-09 13:27 | Outpatient (AMB) | payer OTHER, SELFPAY ==
[2024-10-09 13:34] VITALS: BMI 34.7
--- NOTE | 2024-10-09 13:34 | MHC.OFFVIS ---
Vital Signs 10/09/24 13:34 Height 5 ft 4 in Weight 202 lb BMI 34.7 Intake Visit Reasons: PO- LT shoulder , DOS 08/28/24 NE Intake Note: Mandie is a 54 year old female who presents post operatively after undergoing a left shoulder on 08/28/[address] Patel. Patient reports she is doing well, no concerns today. She states her most discomfort comes at night. She is requesting a refill on her pain medication. Allergies Iodinated Contrast Media [IV CONTRAST] Allergy (Intermediate, Verified 10/09/24 13:39) HIVES azithromycin [From ZITHROMAX] Allergy (Unknown, Verified 10/09/24 13:39) RASH latex [LATEX] Allergy (Unknown, Verified 10/09/24 13:39) ITCHING levofloxacin [Levaquin] Allergy (Unknown, Verified 10/09/24 13:39) ? hives metronidazole Allergy (Unknown, Verified 10/09/24 13:39) ? hives penicillin G Allergy (Unknown, Verified 10/09/24 13:39) Anaphylaxis penicillin V Allergy (Unknown, Verified 10/09/24 13:39) Hives Penicillins [PENICILLINS] Allergy (Unknown, Verified 10/09/24 13:39) RASH sulfamethoxazole [From BACTRIM] Allergy (Unknown, Verified 10/09/24 13:39) RASH trimethoprim [From BACTRIM] Allergy (Unknown, Verified 10/09/24 13:39) RASH IV Dye Allergy (Unknown, Uncoded 10/09/24 13:39) Hives Medication List - Last Reconciled 10/09/24 by Brittany Rankin PA-C atorvastatin 20 mg PO BEDTIME 90 days blood sugar diagnostic (OneTouch Verio test strips) Test blood sugar once a day blood-glucose meter (OneTouch Verio Reflect Meter) As directed clonazepam 0.5 mg PO DAILY PRN 30 days hydroxyzine HCl 50 mg PO BID PRN 14 days lancets (OneTouch Delica Plus Lancet) Test blood sugar once a day oxycodone-acetaminophen 5-325 mg 1 tab PO BID PRN 7 days pregabalin 100 mg PO BID 30 days trazodone 50 mg PO BEDTIME PRN 90 days HPI HPI PO- LT shoulder , DOS 08/28/24 NE: Details: 54-year-old female returns to the office today 6 weeks status post left shoulder arthroscopy with Dr. Patel on 08/28/2024. She has been working with physical therapy and regaining her range of motion. She states she has just started her strengthening exercises. She continues to take the Percocet twice a day. COUNT INCLUDES THE [facility] Medical History (Updated 08/14/24 @ 11:42 by Helene Morrell RN) Marijuana use Arthritis Diabetes IBS (irritable bowel syndrome) High cholesterol Depression Fibromyalgia Surgical History H/O colonoscopy Hx of left knee surgery S/P tympanotomy with insertion of tube H/O removal of cyst History of back surgery Hx of appendectomy Family History Maternal Aunt Substance use disorder Maternal Uncle Substance use disorder Paternal Uncle Substance use disorder Paternal Aunt Substance use disorder Social History (Updated 08/22/24 @ 10:38 by Jared Bauer) Housing: House Housing Other:: mobil home Are you a primary careers counsellor to a significant other at home: No Do you presently have visiting nurse or other home services: No Comment: COUNTS CORRECT Patient Tobacco Use Status: Former Tobacco user Cigarettes Per Day: 2 e-Cigarette/Vaping Use: Currently Using Second Hand Smoke Exposure: No Substance Use Type: Marijuana service: No Current occupational status: disabled Current occupation: right hand dominant Cognitive needs: No Hearing needs: No Vision needs: No Review of Systems Const All systems reviewed & are unremarkable except as noted in HPI and below Physical Exam Vital Signs: BMI result Body Mass Index 34.7 Extrem Other: Left shoulder incisions are well healed. She has full range of motion in all planes with 4-5 rotator cuff strength. Assessment & Plan Assessment & Plan (1) Partial thickness rotator cuff tear: Code(s): M75.110 - Incomplete rotator cuff tear or rupture of unspecified shoulder, not specified as traumatic Category: Medical (2) Labral tear of shoulder, degenerative: Code(s): M24.119 - Other articular cartilage disorders, unspecified shoulder Category: Medical Plan She will continue to working with physical therapy. Therapy order was updated today to progress in strengthening. We discussed the use of her pain medication and she will continue with twice a day and we will wean her down at her next refill. She can also use Tylenol and ibuprofen in between doses. She will continue to increase activities as tolerated and see us back in [address] Patel, sooner if needed. Orders: Orders PT Evaluation and Treatment Today M24.119 - Other articular cartilage disorders, unspecified shoulder, M75.110 - Incomplete rotator cuff tear or rupture of unspecified shoulder, not specified as traumatic Medications: Changed From oxycodone-acetaminophen 5-325 mg Partial Fill upon patient request. 1 tab PO Q6H PRN 28 tabs 0RF pain 7 days To oxycodone-acetaminophen 5-325 mg Partial Fill upon patient request. 1 tab PO BID PRN 14 tabs 0RF pain 7 days Coding Level of Care Code Global (05827) Diagnoses Partial thickness rotator cuff tear M75.110 Labral tear of shoulder, degenerative M24.119
== END 2024-10-09 15:34 | disposition home or self-care (01) ==
LOC: HO.HOS 13:28
PROVIDERS: PCP Nurse Practitioner Family; Visit Provider Physician Assistant
DX: M75.110 Incomplete rotator cuff tear or rupture of unspecified shoulder, not specified as traumatic (principal); M24.119 Other articular cartilage disorders, unspecified shoulder
CPT/HCPCS: 99024

== ENCOUNTER → 2024-10-09 13:27 | Outpatient (BNVA) | payer OTHER, SELFPAY | PROVIDERS: PCP Nurse Practitioner Family; Visit Provider Physician Assistant | DX: M75.112 Incomplete rotator cuff tear or rupture of left shoulder, not specified as traumatic (principal); M24.112 Other articular cartilage disorders, left shoulder | CPT/HCPCS: 99212 ==

== ENCOUNTER 2024-10-17 09:12 | Outpatient (AMB) | payer OTHER, SELFPAY ==
--- NOTE | 2024-10-17 09:18 | MHC.PC.OV ---
Vital Signs 10/17/24 09:19 Height 5 ft 4 in Weight 201 lb BMI 34.5 BP 130/70 Blood Pressure Location Lt brachial Position Sitting Pulse 80 Pulse Source Pulse Oximeter Temp 98.5 F Temp Source Oral Pulse Oximetry (%) 98 Oxygen Delivery Method Room Air Intake Visit Reasons: ANNUAL PE- needs A1C/ breast cx screening Allergies Iodinated Contrast Media (IV CONTRAST) Allergy (Intermediate, Verified 10/17/24 09:41) HIVES azithromycin (From ZITHROMAX) Allergy (Unknown, Verified 10/17/24 09:41) RASH latex (LATEX) Allergy (Unknown, Verified 10/17/24 09:41) ITCHING levofloxacin (Levaquin) Allergy (Unknown, Verified 10/17/24 09:41) ? hives metronidazole Allergy (Unknown, Verified 10/17/24 09:41) ? hives penicillin G Allergy (Unknown, Verified 10/17/24 09:41) Anaphylaxis penicillin V Allergy (Unknown, Verified 10/17/24 09:41) Hives Penicillins (PENICILLINS) Allergy (Unknown, Verified 10/17/24 09:41) RASH sulfamethoxazole (From BACTRIM) Allergy (Unknown, Verified 10/17/24 09:41) RASH trimethoprim (From BACTRIM) Allergy (Unknown, Verified 10/17/24 09:41) RASH IV Dye Allergy (Unknown, Uncoded 10/17/24 09:41) Hives Medication List - Last Reconciled 10/17/24 by Alen Casey SENIOR COMPENSATION CONSULTANT- atorvastatin 20 mg PO BEDTIME 90 days blood sugar diagnostic (OneTouch Verio test strips) Test blood sugar once a day blood-glucose meter (OneTouch Verio Reflect Meter) As directed clonazepam 0.5 mg PO DAILY PRN 30 days hydroxyzine HCl 50 mg PO BID PRN 14 days lancets (OneTouch Delica Plus Lancet) Test blood sugar once a day pregabalin 100 mg PO BID 30 days trazodone 50 mg PO BEDTIME PRN 90 days Tobacco use date assessed: 10/17/24 Dental Screening Dental Screen Date: 10/17/24 Did you have a dental visit in the last 12 months?: Yes Did you have a dental problem in the last 6 months where you did not have access to dental care?: No Was dental information given to patient?: Patient has dentist HPI ANNUAL PE- needs A1C/ breast cx screening HPI Details History of Present Illness The patient is a 54-year-old female presenting for a physical exam and preventative care. She has a history of diabetes mellitus, which she manages primarily through dietary measures. Her current hemoglobin A1c is 6.6%, indicating good control of her condition. She experiences intermittent neuropathy, though it is not frequent. 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 She is due for several preventative screenings, including a colonoscopy, mammogram, and Pap smear. She has not yet completed her follow-up colonoscopy but is now willing to proceed with it. Health Maintenance - Colonoscopy referral for colon cancer screening - Mammogram order placed - Pap smear order placed eye exam up to date Social History Review of Systems - Cardiovascular: Denies chest pain - Respiratory: Denies dyspnea - Gastrointestinal: Denies abdominal pain, blood in stool, constipation, diarrhea - Genitourinary: Denies urinary issues - Neurological: Reports intermittent neuropathy - Psychiatric: Denies suicidal ideation, denies homicidal ideation Physical Exam General: Cooperative, healthy appearing, comfortable, no acute distress and well developed, obese Orientation: Patient oriented x3 Limitations: No limitations Head: Normal to inspection Ears: Hearing grossly normal bilaterally Nose: Normal external nose present Face and sinus: Normal facial exam Eyes: Appearance normal, both eyes and all related structures Neck: Normal visual inspection and Yes full ROM Respiratory: Normal respiratory effort and able to speak in complete sentences. Clear to auscultation bilaterally Cardiovascular: Regular rate and rhythm. Normal S1 and S2 GI: Normal to inspection. Soft to palpation and nontender Skin: No rashes or lesions noted Neuro: Patient oriented x3. Positive sensation and use of monofilament Extremities: Normal to inspection. Feet were intact bilaterally. + sensation. Bilaterally, fifth toes are overlapping on top of fourth toes, which is an anatomical variant Results - Labs: Hemoglobin A1c is 6.6% Plan The patient will continue to manage her diabetes mellitus primarily through dietary measures, as her current hemoglobin A1c of 6.6% indicates good control. She experiences intermittent neuropathy, which will be monitored, but no immediate intervention is required. A referral for a colonoscopy has been placed to address her overdue colon cancer screening, and she is willing to proceed with this. Orders for a mammogram and Pap smear have also been placed to ensure up-to-date preventative care. Discussion Notes I discussed with the patient the importance of maintaining her current dietary regimen to manage her diabetes effectively, given her hemoglobin A1c of 6.6%. We also reviewed the need for her to complete her overdue colonoscopy for colon cancer screening, and she agreed to proceed with the referral. Additionally, I placed orders for a mammogram and Pap smear to ensure her preventative care is up to date. Patient Instructions - Continue with current dietary measures to manage diabetes. - Schedule and complete the colonoscopy as referred. - Follow up with scheduled mammogram and Pap smear. [facility] Medical History Marijuana use Arthritis Diabetes IBS (irritable bowel syndrome) High cholesterol Depression Fibromyalgia Surgical History H/O colonoscopy Hx of left knee surgery S/P tympanotomy with insertion of tube H/O removal of cyst History of back surgery Hx of appendectomy Family History Maternal Aunt Substance use disorder Maternal Uncle Substance use disorder Paternal Uncle Substance use disorder Paternal Aunt Substance use disorder Social History Housing: House Housing Other:: mobil home Are you a primary foster care case manager to a significant other at home: No Do you presently have visiting nurse or other home services: No Comment: COUNTS CORRECT Patient Tobacco Use Status: Former Tobacco user Cigarettes Per Day: 2 e-Cigarette/Vaping Use: Currently Using Second Hand Smoke Exposure: No Substance Use Type: Marijuana service: No Current occupational status: disabled Current occupation: right hand dominant Cognitive needs: No Hearing needs: No Vision needs: No Questionnaire PHQ-9 Over the last 2 weeks, how often have you been bothered by any of the following problems? 1. Little interest or pleasure in doing things: nearly every day 2. Feeling down, depressed, or hopeless: not at all 3. Trouble falling or staying asleep, or sleeping too much: not at all 4. Feeling tired or having little energy: not at all 5. Poor appetite or overeating: not at all 6. Feeling bad about yourself - or that you are a failure or have let yourself or your family down: not at all 7. Trouble concentrating on things, such as reading the newspaper or watching television: not at all 8. Moving or speaking so slowly that other people could have noticed. Or the opposite - being so fidgety or restless that you have been moving around a lot more than usual: not at all 9. Thoughts that you would be better off or of hurting yourself in some way: not at all Total score: 3 Depression Screening Interpretation: Negative Depression Screening Done: Yes 13555 - PHQ-9 Billing: Yes Source: Developed by Drs. Oswaldo Keith, Yeni Angeles, Issa Riley and colleagues, with an educational yris from [employer]. Thrive Questionnaire Date Thrive assessed: 10/17/24 I am a: Patient What is your living situation today?: I have a steady place to live Within the past 12 months, did the food you bought not last and you didn't have the money to get more?: I choose not to answer this question Within the past 12 months, did you worry whether your food would run out before you got money to buy more?: I choose not to answer this question Do you have trouble paying for medicines?: I choose not to answer this question Do you have trouble getting transportation to medical appointments?: I choose not to answer this question Do you have trouble paying your heating and electricity bill?: I choose not to answer this question Do you have trouble taking care of your child, family member or friend?: I choose not to answer this question Do you have trouble with day-to-day activities such as bathing, preparing meals, shopping, managing finances, etc.?: I choose not to answer this question Are you currently unemployed and looking for a job?: I choose not to answer this question Are you interested in more education?: I choose not to answer this question Please select the resources that you would like help with: None Currently or been in a relationship where the following occur: I choose not to answer THRIVE Score: 0 AUDIT C Alcohol Use Questionnaire (AUDIT-C) 1. How often do you have a drink containing alcohol?: Monthly or less 2. How many drinks containing alcohol do you have on a typical day when you are drinking?: 1 or 2 3. How often do you have six or more drinks on one occasion?: Never Total Score: 1 Score Reviewed/Action Taken: Yes KINGS-7 AMB Questionnaire KINGS-7 Date KINGS - 7 assessed: 10/17/24 Feeling nervous, anxious, or on edge: 0 = Not at all Not being able to stop or control worryin = Not at all Worrying too much about different things: 0 = Not at all Trouble relaxin = Not at all Being so restless that it is hard to sit still: 0 = Not at all Becoming easily annoyed or irritable: 0 = Not at all Feeling afraid as if something awful might happen: 0 = Not at all Total KINGS-7 score (0-4 normal; 5-9 mild; 10-14 moderate; 15-21 severe): 0 Source: Developed by Drs. Oswaldo Keith, Yeni Angeles, Issa Riley and colleagues, with an educational yris from [employer]. KINGS-7 Assessment Billing KINGS-7 Assessment Tool: KINGS-7 Assessment 47675 Physical exam (Primary Care) Vital Signs: Last Vital Signs Temp 98.5 F 10/17/24 09:19 Pulse 80 10/17/24 09:19 BP 130/70 10/17/24 09:19 Pulse Ox 98 10/17/24 09:19 Oxygen Delivery Method Room Air 10/17/24 09:19 BMI result Body Mass Index 34.5 Tobacco/Smoking Status: Tobacco use Status Tobacco use date assessed 10/17/24 10/17/24 09:23 Patient Tobacco Use Status Former Tobacco user 10/17/24 09:23 e-Cigarette/Vaping Use Currently Using 10/17/24 09:23 PHQ-9: PHQ-9 Score PHQ-9: Total score 3 10/17/24 09:42 Depression Screening Interpretation: Negative Thrive Assessment: Date of Thrive Assessment Date Thrive assessed 10/17/24 10/17/24 09:23 Currently or been in a relationship where the following occur: I choose not to answer Coding Level of Care Code Est Pt Prev Care 40-64y(33119) Diagnoses Screening for colon cancer Z12.11 Encounter for routine adult physical exam with abnormal findings Z00.01 Diabetes E11.9 Screening for cervical cancer Z12.4 Additional Codes KINGS-7 Assessment Billing - KINGS-7 Assessment Tool: KINGS-7 Assessment 59084 ([id number]) PHQ-9 - 81405 - PHQ-9 Billing: Yes ([id number]) Assessment & Plan Assessment & Plan (1) Screening for colon cancer: Code(s): Z12.11 - Encounter for screening for malignant neoplasm of colon Category: Medical (2) Encounter for routine adult physical exam with abnormal findings: Code(s): Z00.01 - Encounter for general adult medical examination with abnormal findings Category: Medical (3) Diabetes: Code(s): E11.9 - Type 2 diabetes mellitus without complications Category: Medical (4) Screening for cervical cancer: Code(s): Z12.4 - Encounter for screening for malignant neoplasm of cervix Category: Medical Plan . Orders: Orders Complete Blood Count Auto Diff Today E11.9 - Type 2 diabetes mellitus without complications, Z00.01 - Encounter for general adult medical examination with abnormal findings TSH reflex Free T4 Today E11.9 - Type 2 diabetes mellitus without complications, Z00.01 - Encounter for general adult medical examination with abnormal findings AMB Hemoglobin A1c Today Z13.9 - Encounter for screening, unspecified Comprehensive [place]. Panel Fast Today E11.9 - Type 2 diabetes mellitus without complications, Z00.01 - Encounter for general adult medical examination with abnormal findings UA CC w/rflx Micro + Cult Today E11.9 - Type 2 diabetes mellitus without complications, Z00.01 - Encounter for general adult medical examination with abnormal findings Lipid Panel Today E11.9 - Type 2 diabetes mellitus without complications, Z00.01 - Encounter for general adult medical examination with abnormal findings MM screening mammo BI Today Z12.31 - Encounter for screening mammogram for malignant neoplasm of breast Microalbumin, Random (w Creat) Today E11.9 - Type 2 diabetes mellitus without complications Referrals BREAKER OFF Referral Z12.4 - Encounter for screening for malignant neoplasm of cervix Gastroenterology Referral Z12.11 - Encounter for screening for malignant neoplasm of colon
[2024-10-17 09:19] VITALS: BP 130/70; PULSE 80; TEMP 36.9; O2SAT 98; BMI 34.5
== END 2024-10-17 09:59 | disposition home or self-care (01) ==
LOC: HO.HMCC 09:12
PROVIDERS: PCP Nurse Practitioner Family; Visit Provider Nurse Practitioner Family
DX: Z12.11 Encounter for screening for malignant neoplasm of colon (principal); Z00.01 Encounter for general adult medical examination with abnormal findings; E11.9 Type 2 diabetes mellitus without complications; Z12.4 Encounter for screening for malignant neoplasm of cervix; Z13.9 Encounter for screening, unspecified

== ENCOUNTER → 2024-10-17 09:12 | Outpatient (BNVA) | payer OTHER, SELFPAY | PROVIDERS: PCP Nurse Practitioner Family; Visit Provider Nurse Practitioner Family | DX: Z00.01 Encounter for general adult medical examination with abnormal findings (principal); E11.40 Type 2 diabetes mellitus with diabetic neuropathy, unspecified | CPT/HCPCS: 83036; 96127; 99396 ==

== ENCOUNTER 2024-11-05 09:43 | Outpatient (REF) | payer OTHER, SELFPAY ==
--- NOTE | ~2024-11-05 | MM_ITS ---
EXAMINATION: MM SCREENING DIGITAL BREAST TOMOSYNTHESIS, BILATERAL CLINICAL INFORMATION: Screening. Asymptomatic. COMPARISON: Mammography: Comparison is made with available priors TECHNIQUE: Digital breast mammography with tomosynthesis is performed in both the craniocaudal and mediolateral oblique views along with computer-aided detection (CAD). FINDINGS: The breasts are heterogeneously dense, which may obscure small masses (ACR BI-RADS breast composition Category c). There are no significant masses, abnormal calcifications, or other abnormalities. MM/MM tomosynthesis screening BI IMPRESSION: No mammographic evidence of malignancy. ASSESSMENT: BI-RADS BI-RADS 1 - Negative RECOMMENDATION: Routine annual mammography screening. 1 year F/U This examination should not preclude the clinical evaluation of a suspicious palpable abnormality. This patient's information was entered into a reminder system with a target due date for their next mammogram. Electronically signed by: Keli Shankar DO 11/18/2024 09:12 AM EDT
== END 2024-11-05 09:44 | disposition home or self-care (01) ==
LOC: HO.MAMMO 09:43
PROVIDERS: PCP Nurse Practitioner Family; Visit Provider Nurse Practitioner Family
DX: Z12.31 Encounter for screening mammogram for malignant neoplasm of breast (principal)
CPT/HCPCS: 77063; 77067

== ENCOUNTER → 2024-11-05 09:45 | Outpatient (BNV) | payer OTHER, SELFPAY | PROVIDERS: PCP Nurse Practitioner Family; Visit Provider Internal Medicine | DX: Z12.31 Encounter for screening mammogram for malignant neoplasm of breast (principal) | CPT/HCPCS: 77063; 77067 ==

== ENCOUNTER 2024-11-14 10:00 | Outpatient (RCR) | payer OTHER, SELFPAY ==
--- NOTE | 2024-09-06 13:07 | MHC.PT.EP ---
[facility] [place] Office [place] Office [place] Office [address] Basim Scanlon [address] [phone] F: [phone] F: [phone] F: [phone] F: [phone] Physical Therapy Plan of Care Date of Evaluation: 09/05/24 Date of Surgery: 08/28/24 Diagnosis: M75.110 Incomplete rotator cuff tear or rupture of unspecified shoulder, not specified as traumatic. Partial thickness rotator cuff tear, s/p left rotator cuff RTC patch, 08/28/24 with NE, signed by Opal Mathew PA-C Assessment: Pt is a RHD, 54 y/o female, referred to PT for treatment M75.110 Incomplete rotator cuff tear or rupture of unspecified shoulder, not specified as traumatic. Partial thickness rotator cuff tear, s/p left rotator cuff RTC patch, 08/28/24 with NE, signed by Opal Mathew PA-C Pt presents to the office with DONJOY sling with ABD wedge, was driven to appt by family. Pt notes she has been taking off the sling at home for more than just hygiene and therapy. Therapist phoned [facility] orthoped[facility] and spoke with Ewelina to clarify and ensure no specific ROM precautions/ need to be followed as office notes state, Sutures removed today Steri-Strips applied. She will continue to use the sling for comfort and when she is in an uncontrolled environment. She can remove the sling for exercises. She will begin physical therapy to work on range of motion and periscapular stabilization. Progress to strengthening. She will see us back in 4-6 weeks for routine follow up, sooner if needed. EDUARDA Rankin date of note 09/02/24 Diagnoses Labral tear of shoulder, degenerative M24.119 Partial thickness rotator cuff tear M75.110 Documented By:Brittany Rankin09/02/24 0913 Signed By:<Electronically signed by Brittany Rankin>09/02/24 1006 Pt presents with five steri-strips intact over her L shoulder, bruising as anticipated following her surgical procedure. She notes her shoulder has been sore at rest. Mandie has been icing her her shoulder a few times per day but notes pain at rest and admits to using her arm while in the sling. Pt was educated re: goals of therapy, findings of evaluation, and indications for treatment at this time. Pt will be seen in PT once a week for the first 6 weeks and 2x/week after the first six weeks to address ROM/strength/mobility deficits and address goals. Pt verbalized understanding. She was educated re: application/removal of sling use. Pt has had past PT. PMH significant for ACL repair, DMII, Marijuana use Arthritis Diabetes IBS (irritable bowel syndrome) High cholesterol Depression Fibromyalgia H/O colonoscopy Hx of left knee surgery S/P tympanotomy with insertion of tube H/O removal of cyst History of back surgery Hx of appendectomy Frequency and Duration: The patient will be seen 2x/week x 4 weeks Short Term Goals: 1. Pt will demonstrate AAROM L shoulder flexion to 120 degrees. 2. Pt will demonstrate AAROM L shoulder abduction to 120 degrees. 3. Pt will demonstrate good carryover of self care management. 4. Pt will demonstrate compliance with use of sling with ABD/wedge. Custodial Goals: 1. I HEP self care management of L shoulder. 2. Strength L abd 5/5. 3. Strength L flexion 5/5. 4. Strength L lower/middle trap 5/5. 5. Functional AAROM/AROM of the L shoulder to complete ADLS/IADLS. 6. SPADI score improvement by 50% in regard to daily functionality. Treatment Plan: Modalities to reduce pain, spasms and effusion. Manual therapy to restore motion and function. Therapeutic exercise to improve strength and flexibility. Neuromuscular re-education for posture and balance. Therapeutic activities to return to functional activities of daily living. Electronically signed by: Mireya Bal, PT, DPT Please sign and return to therapist. Thank you for your referral.
== END 2024-12-27 07:09 | disposition home or self-care (01) ==
LOC: HO.PTS 10:00
PROVIDERS: Visit Provider Physician Assistant
DX: M24.119 Other articular cartilage disorders, unspecified shoulder (principal); M75.110 Incomplete rotator cuff tear or rupture of unspecified shoulder, not specified as traumatic; Z98.890 Other specified postprocedural states
CPT/HCPCS: 97110; 97140; 97161; 97535

== ENCOUNTER 2024-11-21 14:41 | Outpatient (AMB) | payer OTHER, SELFPAY ==
[2024-11-21 14:46] VITALS: BMI 34.5
--- NOTE | 2024-11-21 14:46 | MHC.OFFVIS ---
Vital Signs 11/21/24 14:46 Height 5 ft 4 in Weight 201 lb BMI 34.5 Intake Visit Reasons: PO - Left shoulder Arthroscopy 08/28/24 Intake Note: Mandie is a 54 year old right hand dominant female who presents today for a post operative follow up s/p left shoulder (Left shoulder RTC repair with removal of loose body, chondroplasty) on 08/28/24. Patient reports she is doing, no further concerns. Allergies Iodinated Contrast Media (IV CONTRAST) Allergy (Intermediate, Verified 11/21/24 14:48) HIVES azithromycin (From ZITHROMAX) Allergy (Unknown, Verified 11/21/24 14:48) RASH latex (LATEX) Allergy (Unknown, Verified 11/21/24 14:48) ITCHING levofloxacin (Levaquin) Allergy (Unknown, Verified 11/21/24 14:48) ? hives metronidazole Allergy (Unknown, Verified 11/21/24 14:48) ? hives penicillin G Allergy (Unknown, Verified 11/21/24 14:48) Anaphylaxis penicillin V Allergy (Unknown, Verified 11/21/24 14:48) Hives Penicillins (PENICILLINS) Allergy (Unknown, Verified 11/21/24 14:48) RASH sulfamethoxazole (From BACTRIM) Allergy (Unknown, Verified 11/21/24 14:48) RASH trimethoprim (From BACTRIM) Allergy (Unknown, Verified 11/21/24 14:48) RASH IV Dye Allergy (Unknown, Uncoded 10/17/24 09:41) Hives HPI HPI PO - Left shoulder Arthroscopy 08/28/24: Details: Mandie is a 54 year old right hand dominant female who presents today for a post operative follow up s/p left shoulder (Left shoulder RTC repair with removal of loose body, chondroplasty) on 08/28/24. Patient reports she is doing, no further concerns. She feels very well after her surgery. She states that she still has limitations given her arthritis that the pain is better and she feels like her motion is more natural. [facility] Medical History Marijuana use Arthritis Diabetes IBS (irritable bowel syndrome) High cholesterol Depression Fibromyalgia Surgical History H/O colonoscopy Hx of left knee surgery S/P tympanotomy with insertion of tube H/O removal of cyst History of back surgery Hx of appendectomy Family History Maternal Aunt Substance use disorder Maternal Uncle Substance use disorder Paternal Uncle Substance use disorder Paternal Aunt Substance use disorder Social History Housing: House Housing Other:: mobil home Are you a primary palliative care nurse to a significant other at home: No Do you presently have visiting nurse or other home services: No Comment: COUNTS CORRECT Patient Tobacco Use Status: Former Tobacco user Cigarettes Per Day: 2 e-Cigarette/Vaping Use: Currently Using Second Hand Smoke Exposure: No Substance Use Type: Marijuana service: No Current occupational status: disabled Current occupation: right hand dominant Cognitive needs: No Hearing needs: No Vision needs: No Physical Exam Vital Signs: BMI result Body Mass Index 34.5 Extrem Other: Portals clean dry and intact 35/90/130/L5 Negative empty can Assessment & Plan Assessment & Plan (1) Osteoarthritis of glenohumeral joint: Code(s): M19.019 - Primary osteoarthritis, unspecified shoulder Category: Medical Plan: This is a 54-year-old who is status post rotator cuff repair in the setting of osteoarthritis of the glenohumeral joint. This was a patch repair and she has done very well. She knows she has osteoarthritis shoulder and may require intervention in the future but at this time she is satisfied with the results of surgery and may return to activity as tolerated. (2) Status post right rotator cuff repair: Code(s): Z98.890 - Other specified postprocedural states Category: Surgical Plan: Coding Level of Care Code Global (46503) Diagnoses Osteoarthritis of glenohumeral joint M19.019 Status post right rotator cuff repair Z98.890
== END 2024-11-21 15:08 | disposition home or self-care (01) ==
LOC: HO.HOS 14:42
PROVIDERS: PCP Nurse Practitioner Family; Visit Provider Orthopaedic Surgery
DX: M19.019 Primary osteoarthritis, unspecified shoulder (principal); Z98.890 Other specified postprocedural states
CPT/HCPCS: 99024

== ENCOUNTER → 2024-11-21 14:41 | Outpatient (BNVA) | payer OTHER, SELFPAY | PROVIDERS: PCP Nurse Practitioner Family; Visit Provider Orthopaedic Surgery | DX: M19.012 Primary osteoarthritis, left shoulder (principal); Z98.890 Other specified postprocedural states | CPT/HCPCS: 99212 ==

== ENCOUNTER 2025-04-18 09:13 | Outpatient (REF) | payer OTHER, SELFPAY ==
[2025-04-18 09:37] LABS: MANUAL DIFF FLAG NO
[2025-04-18 10:00] LABS: Hematocrit 40.9 % (37.0-47.0); Hemoglobin 13.6 g/dl (12.0-16.0); Imm Gran Abs Auto 0.02 X10*3/uL (0.00-0.03); Imm Gran Pct Auto 0.3 % (0.0-0.4); Lymphocytes Absolute Auto 1.8 X10*3/uL (1.2-4.9); Mean Corpuscular HGB Conc 33.3 g/dl (31.0-35.0); Mean Corpuscular Hemoglobin 31.4 pg (27.0-33.0); Mean Corpuscular Volume 94.5 fL (80.0-98.0); NRBC Abs Auto 0.000 X10*3/uL (0.0-0.012); NRBC Pct Auto 0.0 /100WBC (0.0-0.2); Platelet Count 298 X10*3/uL (160-400); Red Blood Count 4.33 X10*6/uL (4.20-5.50); White Blood Count 5.9 X10*3/uL (4.8-10.8)
[2025-04-18 10:31] LABS: Appearance Urine Clear; Glucose Urine UA Negative (Negative); PH 5.5 (5.0-9.0); Specific Gravity - Urine 1.025 (1.005-1.025); UMIC TRIGGER UACC YES
[2025-04-18 11:06] LABS: Alanine Aminotransferase 27 U/L (0-31); Albumin Level 4.8 g/dL (3.5-5.0); Alkaline Phosphatase 68 U/L (39-117); Anion Gap 13 (12-20); Aspartate Amino Transferase 24 U/L (5-31); Blood Urea Nitrogen 13 mg/dL (9-16); Calcium 10.2 mg/dL (8.4-10.2); Carbon Dioxide 27 mmol/L (22-29); Chloride 106 mmol/L (96-108); Cholesterol 174 mg/dL (<200); Estimated Glomerular Filt Rate > 60; HDL Cholesterol 73 mg/dL (>40); Potassium 4.3 mmol/L (3.3-5.1); Sodium 142 mmol/L (135-145); Total Protein 7.4 g/dL (6.5-8.0); Triglycerides 94 mg/dL (<150)
[2025-04-18 11:11] LABS: Microalbum/Creatinine Ratio Ur 6.6 ug/mg cr (<30)
== END 2025-04-18 09:14 | disposition home or self-care (01) ==
LOC: HO.LAB 09:13
PROVIDERS: PCP Nurse Practitioner Family; Visit Provider Nurse Practitioner Family
DX: Z00.00 Encounter for general adult medical examination without abnormal findings (principal); E11.9 Type 2 diabetes mellitus without complications
CPT/HCPCS: 36415; 80053; 80061; 81001; 82043; 82570; 84443; 85025

== ENCOUNTER 2025-04-21 11:25 | Outpatient (AMB) | payer OTHER, SELFPAY ==
[2025-04-21 11:29] VITALS: BP 124/80; PULSE 70; RESP 16; O2SAT 96; BMI 36.4
--- NOTE | 2025-04-21 11:29 | A.OFFPC_ITS ---
Vital Signs 04/21/25 11:29 Height 5 ft 4 in Weight 212 lb BMI 36.4 BP 124/80 Blood Pressure Location Lt brachial Position Sitting Respiration 16 Pulse 70 Pulse Source Pulse Oximeter Pulse Oximetry (%) 96 Oxygen Delivery Method Room Air Intake Visit Reasons: 6m follow up Courier Required: No Accompanied by: Self / Same As Patient Allergies Iodinated Contrast Media (IV CONTRAST) Allergy (Intermediate, Verified 04/21/25 12:24) HIVES azithromycin (From ZITHROMAX) Allergy (Unknown, Verified 04/21/25 12:24) RASH latex (LATEX) Allergy (Unknown, Verified 04/21/25 12:24) ITCHING levofloxacin (Levaquin) Allergy (Unknown, Verified 04/21/25 12:24) ? hives metronidazole Allergy (Unknown, Verified 04/21/25 12:24) ? hives penicillin G Allergy (Unknown, Verified 04/21/25 12:24) Anaphylaxis penicillin V Allergy (Unknown, Verified 04/21/25 12:24) Hives Penicillins (PENICILLINS) Allergy (Unknown, Verified 04/21/25 12:24) RASH sulfamethoxazole (From BACTRIM) Allergy (Unknown, Verified 04/21/25 12:24) RASH trimethoprim (From BACTRIM) Allergy (Unknown, Verified 04/21/25 12:24) RASH IV Dye Allergy (Unknown, Uncoded 04/21/25 12:24) Hives Medication List - Last Reconciled 04/21/25 by NINO RussoP- atorvastatin 20 mg PO BEDTIME 90 days blood sugar diagnostic (OneTouch Verio test strips) Test blood sugar once a day blood-glucose meter (OneTouch Verio Reflect Meter) As directed citalopram (Celexa) 20 mg PO DAILY 90 days clonazepam 0.5 mg PO DAILY PRN 30 days hydroxyzine HCl 50 mg PO BID PRN 14 days lancets (OneTouch Delica Plus Lancet) Test blood sugar once a day pregabalin 100 mg PO BID 30 days tirzepatide (Mounjaro) 2.5 mg (0.5 mL) subcut QWEEK trazodone 150 mg PO BEDTIME PRN 90 days Tobacco use date assessed: 04/21/25 Dental Screening Dental Screen Date: 04/21/25 Did you have a dental visit in the last 12 months?: Yes Did you have a dental problem in the last 6 months where you did not have access to dental care?: No Was dental information given to patient?: Patient has dentist HPI 6m follow up HPI Details History of Present Illness The patient is a 55 year old female presenting for a physical exam. She has a diagnosis of diabetes which is reportedly well controlled with a recent HbA1c of 6.0%. Her eye exam, labs, and microalbumin are all up to date. Regarding health maintenance, she was previously referred to gastroenterology for a colonoscopy but has not yet scheduled it. Her mammogram is up to date. She has a history of being a heavy smoker at one point. The patient denies any personal history of thyroid carcinoma or pancreatitis. Health Maintenance Patient has been previously referred for a colonoscopy and will call to schedule the appointment. She is due for vaccinations and will receive a Tdap in the office today, obtaining the rest from her pharmacy. A referral will be placed to the lung screening program for a low-dose CT scan due to a history of heavy smoking. Her eye exam, mammogram, and microalbumin screening are all up to date. Social History - Tobacco Use: Patient was a heavy smoke r at one point. Review of Systems - Endocrine: Denies history of thyroid c arcinoma. - Gastrointestinal: Denies history of pa ncreatitis. Physical Exam General: Cooperative, healthy appearing, comfortable, no acute distress and well developed Orientation: Patient oriented x3 Limitations: No limitations Head: Normal to inspection Ears: Hearing grossly normal bilaterally Nose: Normal external nose present Face and sinus: Normal facial exam Eyes: Appearance normal, both eyes and all related structures Neck: Normal visual inspection and Yes full ROM Respiratory: Normal respiratory effort and able to speak in complete sentences. Clear to auscultation bilaterally Cardiovascular: Regular rate and rhythm. Normal S1 and S2 GI: Normal to inspection. Soft to palpation and nontender : testicles without masses/lesions and no hernias appreciated Skin: No rashes or lesions noted Neuro: Patient oriented x3 Extremities: Normal to inspection Results - Labs: A1c is 6.0%. - Tests and diagnostics: Patient reports microalbumin is up to date. Plan 1. Diabetes Mellitus The patient's diabetes is well-controlled with an HbA1c of 6.0%. To further manage her condition, she will be started on a GLP-1 agonist. She denies any history of thyroid carcinoma or pancreatitis, which are contraindications for this medication class. The major side effects were reviewed. She will be started on a low dose of Mounjaro. Discussion Notes I discussed my plan to start the patient on a GLP-1 agonist, Mounjaro, beginning with a low dose. We reviewed the major side effects associated with this medication, and she confirmed she does not have a personal history of thyroid carcinoma or pancreatitis. I will be referring her to the lung screening program for a low-dose CAT scan based on her history as a heavy smoker. We also reviewed her health maintenance needs. She acknowledged the previous referral for a colonoscopy and stated she will call to schedule it. She will receive her Tdap vaccination in the office today and get her other required vaccinations at her pharmacy. Patient Instructions - You will begin a new medication for di etes called Mounjaro, starting at a low dose. - We have discussed the potential side e ffects of this new medication. - Please call the specialist's office to schedule your colonoscopy as previously recommended. - You will be referred for a lung screen ing CT scan because of your smoking history. - You will receive a Tdap vaccine shot i n our office today. - Please get your other due vaccinations at your local pharmacy. [facility] Medical History Marijuana use Arthritis Diabetes IBS (irritable bowel syndrome) High cholesterol Depression Fibromyalgia Surgical History H/O colonoscopy Hx of left knee surgery S/P tympanotomy with insertion of tube H/O removal of cyst History of back surgery Hx of appendectomy Family History Maternal Aunt Substance use disorder Maternal Uncle Substance use disorder Paternal Uncle Substance use disorder Paternal Aunt Substance use disorder Social History Housing: House Housing Other:: mobil home Are you a primary career developer to a significant other at home: No Do you presently have visiting nurse or other home services: No Comment: COUNTS CORRECT Patient Tobacco Use Status: Former Tobacco user Cigarettes Per Day: 2 e-Cigarette/Vaping Use: Currently Using Second Hand Smoke Exposure: No Substance Use Type: Marijuana service: No Current occupational status: disabled Current occupation: right hand dominant Cognitive needs: No Hearing needs: No Vision needs: No Questionnaire PHQ-9 Over the last 2 weeks, how often have you been bothered by any of the following problems? 1. Little interest or pleasure in doing things: not at all 2. Feeling down, depressed, or hopeless: not at all 3. Trouble falling or staying asleep, or sleeping too much: not at all 4. Feeling tired or having little energy: not at all 5. Poor appetite or overeating: not at all 6. Feeling bad about yourself - or that you are a failure or have let yourself or your family down: not at all 7. Trouble concentrating on things, such as reading the newspaper or watching television: not at all 8. Moving or speaking so slowly that other people could have noticed. Or the opposite - being so fidgety or restless that you have been moving around a lot more than usual: not at all 9. Thoughts that you would be better off or of hurting yourself in some way: not at all Total score: 0 Depression Screening Interpretation: Negative Depression Screening Done: Yes 20872 - PHQ-9 Billing: Yes Source: Developed by Drs. Oswaldo Keith, Yeni Angeles, Issa Riley and colleagues, with an educational yris from [employer]. Thrive Questionnaire Date Thrive assessed: 10/17/24 I am a: Patient What is your living situation today?: I have a steady place to live Within the past 12 months, did the food you bought not last and you didn't have the money to get more?: I choose not to answer this question Within the past 12 months, did you worry whether your food would run out before you got money to buy more?: I choose not to answer this question Do you have trouble paying for medicines?: I choose not to answer this question Do you have trouble getting transportation to medical appointments?: I choose not to answer this question Do you have trouble paying your heating and electricity bill?: I choose not to answer this question Do you have trouble taking care of your child, family member or friend?: I choose not to answer this question Do you have trouble with day-to-day activities such as bathing, preparing meals, shopping, managing finances, etc.?: I choose not to answer this question Are you currently unemployed and looking for a job?: I choose not to answer this question Are you interested in more education?: I choose not to answer this question Please select the resources that you would like help with: None Currently or been in a relationship where the following occur: I choose not to answer THRIVE Score: 0 KINGS-7 AMB Questionnaire KINGS-7 Date KINGS - 7 assessed: 04/21/25 Feeling nervous, anxious, or on edge: 0 = Not at all Not being able to stop or control worryin = Not at all Worrying too much about different things: 0 = Not at all Trouble relaxin = Not at all Being so restless that it is hard to sit still: 0 = Not at all Becoming easily annoyed or irritable: 0 = Not at all Feeling afraid as if something awful might happen: 0 = Not at all Total KINGS-7 score (0-4 normal; 5-9 mild; 10-14 moderate; 15-21 severe): 0 Source: Developed by Drs. Oswaldo Keith, Yeni Angeles, Issa Riley and colleagues, with an educational yris from [employer]. KIGNS-7 Assessment Billing KINGS-7 Assessment Tool: KINGS-7 Assessment 43266 Physical exam (Primary Care) Vital Signs: Last Vital Signs Pulse 70 04/21/25 11:29 Resp 16 04/21/25 11:29 BP 124/80 04/21/25 11:29 Pulse Ox 96 04/21/25 11:29 Oxygen Delivery Method Room Air 04/21/25 11:29 BMI result Body Mass Index 36.4 Tobacco/Smoking Status: Tobacco use Status Tobacco use date assessed 04/21/25 04/21/25 11:36 Patient Tobacco Use Status Former Tobacco user 04/21/25 11:36 e-Cigarette/Vaping Use Currently Using 04/21/25 11:36 PHQ-9: PHQ-9 Score PHQ-9: Total score 0 04/21/25 11:40 Depression Screening Interpretation: Negative Thrive Assessment: Date of Thrive Assessment Date Thrive assessed 10/17/24 04/21/25 11:36 Currently or been in a relationship where the following occur: I choose not to answer Results AMB Hemoglobin A1c AMB Hemoglobin A1c 6.0 % Last Edit by Claudette Hernandez MA on 04/21/25 11:53 Immunizations Boostrix Tdap 2.5 Lf unit-8 mcg-5 Lf/0.5 mL intramuscular syringe Performing Provider: BRIDGET Russo [place]forming [place] [facility] Administered by: Jarred Aquino CMA on 04/21/25 12:14 Dose Route Admin Location Dispensed Lot Number Expiration Date NDC [employer] 0.5 mL IM Right Deltoid 0.5 mL [id number] 10/11/27 91404-461-40 [employer] Total Dispensed Waste 0.5 mL 0 % VIS Given Date VIS Provided VIS Publication Date 04/21/25 Single Vaccine 20 Eligibility Eligibility Date Funding Source Not [facility] Eligible 04/21/25 Private Results Reviewed Results Reviewed: Laboratory Last Values Hgb A1c (Clinic) 6.0 % (4.0-6.0) 04/21/25 11:39 Coding Level of Care Code Est Pt Level 3 (83972) Est Pt Prev Care 40-64y(56279) Diagnoses Smoker F17.200 Diabetes E11.9 Encounter for routine adult physical exam with abnormal findings Z00.01 Additional Codes KINGS-7 Assessment Billing - KINGS-7 Assessment Tool: KINGS-7 Assessment 95891 ([id number]) PHQ-9 - 00332 - PHQ-9 Billing: Yes ([id number]) Assessment & Plan Assessment & Plan (1) Smoker: Code(s): F17.200 - Nicotine dependence, unspecified, uncomplicated Category: Social Hx (2) Diabetes: Code(s): E11.9 - Type 2 diabetes mellitus without complications Category: Medical (3) Encounter for routine adult physical exam with abnormal findings: Code(s): Z00.01 - Encounter for general adult medical examination with abnormal findings Category: Medical Plan . Orders: Orders AMB Hemoglobin A1c Today E11.9 - Type 2 diabetes mellitus without complications TDaP Immunization Today Z23 - Encounter for immunization Referrals Lung Cancer Screening Referral F17.200 - Nicotine dependence, unspecified, uncomplicated Medications: New tirzepatide (Mounjaro) for 4 weeks 2.5 mg (0.5 mL) subcut QWEEK 2 mL 0RF
== END 2025-04-21 12:15 | disposition home or self-care (01) ==
LOC: HO.HMCC 11:26
PROVIDERS: PCP Nurse Practitioner Family; Visit Provider Nurse Practitioner Family
DX: Z00.01 Encounter for general adult medical examination with abnormal findings (principal); E11.9 Type 2 diabetes mellitus without complications; F17.290 Nicotine dependence, other tobacco product, uncomplicated; Z23 Encounter for immunization

== ENCOUNTER → 2025-04-21 11:25 | Outpatient (BNVA) | payer OTHER, SELFPAY | PROVIDERS: PCP Nurse Practitioner Family; Visit Provider Nurse Practitioner Family | DX: Z00.01 Encounter for general adult medical examination with abnormal findings (principal); E11.9 Type 2 diabetes mellitus without complications; F17.200 Nicotine dependence, unspecified, uncomplicated; Z13.31 Encounter for screening for depression; Z13.39 Encounter for screening examination for other mental health and behavioral disorders; Z23 Encounter for immunization; Z79.899 Other long term (current) drug therapy | CPT/HCPCS: 83036; 90471; 90715; 96127; 99396 ==